=== PATIENT | female | born 1960 | race Caucasian/White ===

== ENCOUNTER 2016-07-31 21:46 | Observation (INO) ==
[2016-07-31] MEDS ORDERED: 0.9 % Sodium Chloride 1,000 ML IVC ONE (21:53)
[2016-07-31] MEDS ORDERED: Ammonia Inhalant AMPUL IH ONE (21:53)
[2016-07-31] MEDS ORDERED: Ammonia Inhalant AMPUL ONE (21:53)
--- NOTE | 2016-07-31 21:57 | Emergency Department Note ---
Disposition Clinical Impression: Drug overdose Disposition: Admitted As Inpatient Condition: Undetermined General Adult HPI - General Chief complaint: ED Overdose Stated complaint: OD/SI Time Seen by Provider: 07/31/16 21:49 - Related Data Home Medications Medication Instructions Recorded Confirmed Bupropion HCl [Wellbutrin Xl] 300 mg PO DAILY 12/05/14 12/05/14 Calcium Carbonate [Tums] 500 mg PO DAILY 12/05/14 12/05/14 Docusate [Colace] 100 mg PO DAILY 12/05/14 12/05/14 Estradiol [Estrace] 1 mg PO DAILY 12/05/14 12/05/14 Multivitamin [Flintstones] 1 each PO DAILY 12/05/14 12/05/14 Omeprazole [PriLOSEC] 40 mg PO DAILY 12/05/14 12/05/14 Venlafaxine [Effexor] 75 mg PO BID 12/05/14 12/05/14 traZODone [TraZODone] 100 mg PO HS 12/05/14 12/05/14 Previous Rx's Medication Instructions Recorded OxyCODONE/APAP 5/325 [Percocet 1 each PO Q6HR PRN #6 tablet 12/05/14 5/325] Azithromycin [Azithromycin 6-Tab 250 mg PO DAILY #6 tab 08/31/15 Pack] Ibuprofen [Motrin] 800 mg PO Q6-8H PRN #30 tablet 08/31/15 Lactobacillus Rhamnosus GG 1 each PO DAILY #7 capsule 08/31/15 [Culturelle] Lidocaine Viscous Oral Soln 10 ml PO Q3H PRN #200 ml 08/31/15 Meclizine [Antivert] 25 mg PO TID #30 tablet 02/13/16 Ondansetron [Zofran] 4 mg PO Q8HR #30 tablet 02/13/16 Allergies Allergy/AdvReac Type Severity Reaction Status Date / Time acetaminophen [From Tylenol] Allergy See Verified 12/05/14 12:18 Comments Penicillins Allergy See Verified 12/05/14 12:18 Comments Past Medical History - Past Medical History Medical history: Reports: no medical history Surgical history: Reports: hysterectomy, other Psychiatric history: Reports: anxiety, bipolar, depression, PTSD - Social History Smoking Status: Current every day smoker Smokeless Tobacco Status: No Alcohol use: Reports: none Drug use: Reports: marijuana Course Vital Signs Temperature 98.1 F 07/31/16 21:48 Pulse Rate 71 07/31/16 21:48 Respiratory Rate 14 07/31/16 21:48 Blood Pressure 146/90 07/31/16 21:48 O2 Sat by Pulse Oximetry 95 07/31/16 21:48 Temperature 97.7 F 08/01/16 02:17 Pulse Rate 75 08/01/16 05:00 Respiratory Rate 19 08/01/16 05:00 Blood Pressure 105/79 08/01/16 05:00 O2 Sat by Pulse Oximetry 99 08/01/16 05:00 Oxygen Delivery Oxygen Delivery Nasal Cannula Medical Decision Making - Lab Data Result diagrams: 07/31/16 22:39 07/31/16 22:39 Lab Results 07/31/16 07/31/16 07/31/16 Range/Units 22:34 22:37 22:39 WBC 11.8 H (4.3-11.1) K/mcL RBC 4.79 (3.82-4.97) M/mcL Hgb 14.3 (11.5-15.4) g/dL Hct 42.5 (35.3-44.9) % MCV 88.7 (83.0-100.0) fL MCH 29.9 (28.0-33.3) pg MCHC 33.6 (31.6-35.5) g/dL RDW 13.2 (11.5-14.5) % Plt Count 265 (140-400) K/mcL MPV 11.0 (9.4-12.4) fL Immature Gran % 0.3 (0-4) % Seg Neutrophils % 49.5 % Lymphocytes % 41.4 % Monocytes % 6.4 % Eosinophils % 1.9 % Basophils % 0.5 % Neutrophils # 5.9 (1.6-8.9) K/mcL Lymphocytes # 4.9 H (0.6-4.6) K/mcL Monocytes # 0.8 (0.0-1.3) K/mcL Eosinophils # 0.2 (0.0-0.6) K/mcL Basophils # 0.1 (0.0-0.2) K/mcL ABG pH (7.32-7.45) pH Units ABG pCO2 (35-45) mmHg ABG pO2 (85-104) mmHg ABG HCO3 (21-27) mEQ/L ABG Total CO2 (20-26) mEq/L ABG O2 Saturation (95-98) % ABG Base Excess (-2.0 to 3.0) mEq/L Liter Flow L/MIN Blood Gas Modality Inspired O2 % Sodium (136-145) mEq/L Potassium (3.5-4.5) mEq/L Chloride (98-109) mEq/L Carbon Dioxide (19-29) mEq/L BUN (7-20) mg/dL Creatinine (0.57-1.11) mg/dL Est GFR ( Amer) (> 60) Est GFR (Non-Af Amer) (> 60) BUN/Creatinine Ratio (6-26) Glucose (70-99) mg/dL Calculated Osmolality (280-300) Calcium (8.6-10.8) mg/dL Magnesium 1.9 (1.6-2.6) mg/dL Total Bilirubin (0.2-1.2) mg/dL Direct Bilirubin (0.0-0.5) mg/dL Indirect Bilirubin (0.0-1.2) mg/dL AST (5-34) Units/L ALT (0-55) Units/L Alkaline Phosphatase (38-126) Units/L Serum Total Protein (6.0-8.3) g/dL Albumin (3.5-5.0) g/dL Globulin (2.4-3.5) g/dL Albumin/Globulin Ratio (1.1-2.2) Urine Color Yellow (Yellow) Urine Clarity Cloudy A (Clear) Urine pH 6.0 (5.0-8.0) pH Units Ur Specific [place] 1.013 (1.010-1.025) Urine Protein Negative (Neg-Trace) mg/dL Urine Glucose (UA) Normal (Normal) mg/dL Urine Ketones Negative (Negative) mg/dL Urine Blood Negative (Negative) Urine Nitrite Positive A (Negative) Urine Bilirubin Negative (Negative) Urine Urobilinogen Normal (Normal) mg/dL Ur Leukocyte Esterase Trace H (Negative) Urine Microscopic RBC 0-3 (0-3) per hpf Urine Microscopic WBC 3-5 H (0-3) per hpf Ur Squamous Epith Cells Many H (None-Few) per lpf Urine Bacteria Many H (None-Few) per hpf Hyaline Casts None Seen (None-Few) per lpf Salicylates (15-30) mg/dL Urine Opiates Screen ([place]=340) ng/mL Acetaminophen (10-30) mcg/mL Ur Barbiturates Screen (Zoaukg=796) ng/mL Ur Phencyclidine Scrn (Cutoff=25) ng/mL Ur Amphetamines Screen (Ttleyj=8543) ng/mL U Benzodiazepines Scrn (Rrfhrj=410) ng/mL Urine Cocaine Screen (Cutoff= 300) ng/mL U Marijuana (THC) Screen (Cutoff = 50) ng/mL Ethyl Alcohol (0-10) mg/dL 07/31/16 07/31/16 07/31/16 Range/Units 22:39 22:48 23:25 WBC (4.3-11.1) K/mcL RBC (3.82-4.97) M/mcL Hgb (11.5-15.4) g/dL Hct (35.3-44.9) % MCV (83.0-100.0) fL MCH (28.0-33.3) pg MCHC (31.6-35.5) g/dL RDW (11.5-14.5) % Plt Count (140-400) K/mcL MPV (9.4-12.4) fL Immature Gran % (0-4) % Seg Neutrophils % % Lymphocytes % % Monocytes % % Eosinophils % % Basophils % % Neutrophils # (1.6-8.9) K/mcL Lymphocytes # (0.6-4.6) K/mcL Monocytes # (0.0-1.3) K/mcL Eosinophils # (0.0-0.6) K/mcL Basophils # (0.0-0.2) K/mcL ABG pH 7.37 (7.32-7.45) pH Units ABG pCO2 43 (35-45) mmHg ABG pO2 97 (85-104) mmHg ABG HCO3 24.9 (21-27) mEQ/L ABG Total CO2 26.2 H (20-26) mEq/L ABG O2 Saturation 97 (95-98) % ABG Base Excess -0.6 (-2.0 to 3.0) mEq/L Liter Flow 6 L/MIN Blood Gas Modality [place] Inspired O2 44 % Sodium 140 (136-145) mEq/L Potassium 3.7 (3.5-4.5) mEq/L Chloride 110 H (98-109) mEq/L Carbon Dioxide 20 (19-29) mEq/L BUN 15 (7-20) mg/dL Creatinine 1.21 H (0.57-1.11) mg/dL Est GFR ( Amer) 56 L (> 60) Est GFR (Non-Af Amer) 46 L (> 60) BUN/Creatinine Ratio 12 (6-26) Glucose 130 H (70-99) mg/dL Calculated Osmolality 293 (280-300) Calcium 8.9 (8.6-10.8) mg/dL Magnesium (1.6-2.6) mg/dL Total Bilirubin 0.4 (0.2-1.2) mg/dL Direct Bilirubin 0.2 (0.0-0.5) mg/dL Indirect Bilirubin 0.2 (0.0-1.2) mg/dL AST 16 (5-34) Units/L ALT 14 (0-55) Units/L Alkaline Phosphatase 98 (38-126) Units/L Serum Total Protein 7.0 (6.0-8.3) g/dL Albumin 3.7 (3.5-5.0) g/dL Globulin 3.3 (2.4-3.5) g/dL Albumin/Globulin Ratio 1.1 (1.1-2.2) Urine Color (Yellow) Urine Clarity (Clear) Urine pH (5.0-8.0) pH Units Ur Specific [place] (1.010-1.025) Urine Protein (Neg-Trace) mg/dL Urine Glucose (UA) (Normal) mg/dL Urine Ketones (Negative) mg/dL Urine Blood (Negative) Urine Nitrite (Negative) Urine Bilirubin (Negative) Urine Urobilinogen (Normal) mg/dL Ur Leukocyte Esterase (Negative) Urine Microscopic RBC (0-3) per hpf Urine Microscopic WBC (0-3) per hpf Ur Squamous Epith Cells (None-Few) per lpf Urine Bacteria (None-Few) per hpf Hyaline Casts (None-Few) per lpf Salicylates < 5.0 L (15-30) mg/dL Urine Opiates Screen Negative (Wszhwv=955) ng/mL Acetaminophen < 1.0 L (10-30) mcg/mL Ur Barbiturates Screen Negative (Klsrjr=197) ng/mL Ur Phencyclidine Scrn Negative (Cutoff=25) ng/mL Ur Amphetamines Screen Negative (Yehyjf=3186) ng/mL U Benzodiazepines Scrn Negative (Ckpzkn=679) ng/mL Urine Cocaine Screen Negative (Cutoff= 300) ng/mL U Marijuana (THC) Screen Positive H (Cutoff = 50) ng/mL Ethyl Alcohol < 10 (0-10) mg/dL Critical Care Time Critical Care Time: Yes Total Critical Care Time: 30 Attestation: Patient presented via EMS for overdose. I am unable to clear her medically for behavioral evaluation. She required consultation with the Poison Control Center and admission of IV sodium bicarbonate due to a widened QRS complex. Admitted Attestation Statement - Attestation Attestation: I examined this patient and my medical decision-making was reviewed with the THIRD COOK/PA/Advanced Practice Nurse/Resident Physician. I agree with the documented findings, disposition and treatment plan as described except to the extent set forth below. Face to face time provided Patient is reported to have overdosed on Klonopin and Lamictal. She is sleepy and nonverbal but protecting her airway. No indication for intubation at the time of her initial presentation.
--- NOTE | 2016-07-31 21:58 | Emergency Department Note ---
Overdose - [facility] Narrative Medical decision making narrative: Spoke with poison control with regard to the patient given the patient has a mildly widened QRS they recommended one amp of bicarbonate as well as magnesium. There was no improvement after EKG from 1 hour. The patient remained somnolent with a GCS of 11. She is still arousable to voice and painful stimuli. She continues to protect her airway. She has had no further vomiting. We will admit the patient to the intensive care unit. Accepted by the hospitalist, Dr. Barron. - Lab Data Lab results reviewed: Yes I reviewed the patient's lab results. Result diagrams: 07/31/16 22:39 07/31/16 22:39 Lab Results 07/31/16 07/31/16 07/31/16 Range/Units 22:34 22:37 22:39 WBC 11.8 H (4.3-11.1) K/mcL RBC 4.79 (3.82-4.97) M/mcL Hgb 14.3 (11.5-15.4) g/dL Hct 42.5 (35.3-44.9) % MCV 88.7 (83.0-100.0) fL MCH 29.9 (28.0-33.3) pg MCHC 33.6 (31.6-35.5) g/dL RDW 13.2 (11.5-14.5) % Plt Count 265 (140-400) K/mcL MPV 11.0 (9.4-12.4) fL Immature Gran % 0.3 (0-4) % Seg Neutrophils % 49.5 % Lymphocytes % 41.4 % Monocytes % 6.4 % Eosinophils % 1.9 % Basophils % 0.5 % Neutrophils # 5.9 (1.6-8.9) K/mcL Lymphocytes # 4.9 H (0.6-4.6) K/mcL Monocytes # 0.8 (0.0-1.3) K/mcL Eosinophils # 0.2 (0.0-0.6) K/mcL Basophils # 0.1 (0.0-0.2) K/mcL ABG pH (7.32-7.45) pH Units ABG pCO2 (35-45) mmHg ABG pO2 (85-104) mmHg ABG HCO3 (21-27) mEQ/L ABG Total CO2 (20-26) mEq/L ABG O2 Saturation (95-98) % ABG Base Excess (-2.0 to 3.0) mEq/L Liter Flow L/MIN Blood Gas Modality Inspired O2 % Sodium (136-145) mEq/L Potassium (3.5-4.5) mEq/L Chloride (98-109) mEq/L Carbon Dioxide (19-29) mEq/L BUN (7-20) mg/dL Creatinine (0.57-1.11) mg/dL Est GFR ( Amer) (> 60) Est GFR (Non-Af Amer) (> 60) BUN/Creatinine Ratio (6-26) Glucose (70-99) mg/dL Calculated Osmolality (280-300) Calcium (8.6-10.8) mg/dL Magnesium 1.9 (1.6-2.6) mg/dL Total Bilirubin (0.2-1.2) mg/dL Direct Bilirubin (0.0-0.5) mg/dL Indirect Bilirubin (0.0-1.2) mg/dL AST (5-34) Units/L ALT (0-55) Units/L Alkaline Phosphatase (38-126) Units/L Serum Total Protein (6.0-8.3) g/dL Albumin (3.5-5.0) g/dL Globulin (2.4-3.5) g/dL Albumin/Globulin Ratio (1.1-2.2) Urine Color Yellow (Yellow) Urine Clarity Cloudy A (Clear) Urine pH 6.0 (5.0-8.0) pH Units Ur Specific [place] 1.013 (1.010-1.025) Urine Protein Negative (Neg-Trace) mg/dL Urine Glucose (UA) Normal (Normal) mg/dL Urine Ketones Negative (Negative) mg/dL Urine Blood Negative (Negative) Urine Nitrite Positive A (Negative) Urine Bilirubin Negative (Negative) Urine Urobilinogen Normal (Normal) mg/dL Ur Leukocyte Esterase Trace H (Negative) Urine Microscopic RBC 0-3 (0-3) per hpf Urine Microscopic WBC 3-5 H (0-3) per hpf Ur Squamous Epith Cells Many H (None-Few) per lpf Urine Bacteria Many H (None-Few) per hpf Hyaline Casts None Seen (None-Few) per lpf Salicylates (15-30) mg/dL Urine Opiates Screen (Qtttpo=031) ng/mL Acetaminophen (10-30) mcg/mL Ur Barbiturates Screen (Wlbtis=760) ng/mL Ur Phencyclidine Scrn (Cutoff=25) ng/mL Ur Amphetamines Screen (Htpdie=2942) ng/mL U Benzodiazepines Scrn (Egcbpj=271) ng/mL Urine Cocaine Screen (Cutoff= 300) ng/mL U Marijuana (THC) Screen (Cutoff = 50) ng/mL Ethyl Alcohol (0-10) mg/dL 07/31/16 07/31/16 07/31/16 Range/Units 22:39 22:48 23:25 WBC (4.3-11.1) K/mcL RBC (3.82-4.97) M/mcL Hgb (11.5-15.4) g/dL Hct (35.3-44.9) % MCV (83.0-100.0) fL MCH (28.0-33.3) pg MCHC (31.6-35.5) g/dL RDW (11.5-14.5) % Plt Count (140-400) K/mcL MPV (9.4-12.4) fL Immature Gran % (0-4) % Seg Neutrophils % % Lymphocytes % % Monocytes % % Eosinophils % % Basophils % % Neutrophils # (1.6-8.9) K/mcL Lymphocytes # (0.6-4.6) K/mcL Monocytes # (0.0-1.3) K/mcL Eosinophils # (0.0-0.6) K/mcL Basophils # (0.0-0.2) K/mcL ABG pH 7.37 (7.32-7.45) pH Units ABG pCO2 43 (35-45) mmHg ABG pO2 97 (85-104) mmHg ABG HCO3 24.9 (21-27) mEQ/L ABG Total CO2 26.2 H (20-26) mEq/L ABG O2 Saturation 97 (95-98) % ABG Base Excess -0.6 (-2.0 to 3.0) mEq/L Liter Flow 6 L/MIN Blood Gas Modality [place] Inspired O2 44 % Sodium 140 (136-145) mEq/L Potassium 3.7 (3.5-4.5) mEq/L Chloride 110 H (98-109) mEq/L Carbon Dioxide 20 (19-29) mEq/L BUN 15 (7-20) mg/dL Creatinine 1.21 H (0.57-1.11) mg/dL Est GFR ( Amer) 56 L (> 60) Est GFR (Non-Af Amer) 46 L (> 60) BUN/Creatinine Ratio 12 (6-26) Glucose 130 H (70-99) mg/dL Calculated Osmolality 293 (280-300) Calcium 8.9 (8.6-10.8) mg/dL Magnesium (1.6-2.6) mg/dL Total Bilirubin 0.4 (0.2-1.2) mg/dL Direct Bilirubin 0.2 (0.0-0.5) mg/dL Indirect Bilirubin 0.2 (0.0-1.2) mg/dL AST 16 (5-34) Units/L ALT 14 (0-55) Units/L Alkaline Phosphatase 98 (38-126) Units/L Serum Total Protein 7.0 (6.0-8.3) g/dL Albumin 3.7 (3.5-5.0) g/dL Globulin 3.3 (2.4-3.5) g/dL Albumin/Globulin Ratio 1.1 (1.1-2.2) Urine Color (Yellow) Urine Clarity (Clear) Urine pH (5.0-8.0) pH Units Ur Specific [place] (1.010-1.025) Urine Protein (Neg-Trace) mg/dL Urine Glucose (UA) (Normal) mg/dL Urine Ketones (Negative) mg/dL Urine Blood (Negative) Urine Nitrite (Negative) Urine Bilirubin (Negative) Urine Urobilinogen (Normal) mg/dL Ur Leukocyte Esterase (Negative) Urine Microscopic RBC (0-3) per hpf Urine Microscopic WBC (0-3) per hpf Ur Squamous Epith Cells (None-Few) per lpf Urine Bacteria (None-Few) per hpf Hyaline Casts (None-Few) per lpf Salicylates < 5.0 L (15-30) mg/dL Urine Opiates Screen Negative (Nsdipt=088) ng/mL Acetaminophen < 1.0 L (10-30) mcg/mL Ur Barbiturates Screen Negative (Hwtxav=224) ng/mL Ur Phencyclidine Scrn Negative (Cutoff=25) ng/mL Ur Amphetamines Screen Negative (Mlfyjk=0030) ng/mL U Benzodiazepines Scrn Negative (Yblnci=550) ng/mL Urine Cocaine Screen Negative (Cutoff= 300) ng/mL U Marijuana (THC) Screen Positive H (Cutoff = 50) ng/mL Ethyl Alcohol < 10 (0-10) mg/dL - Radiology Data Radiology results reviewed: Yes I reviewed the patient's radiology results. - EKG Data EKG attestation: Yes I reviewed and interpreted this EKG. EKG results narrative: Heart rate 73 bpm. NH interval 146 ms. QTc 487 ms. Normal axis. Normal sinus rhythm. No ST elevation or ST depression noted. EKG identical to EKG from 02/13/2016. No acute changes noted. EKG #2. Heart rate 66 bpm. NH interval 191 ms. QTc 480 ms. Normal axis. Normal sinus rhythm. No ST elevation or ST depression noted. EKG identical to EKG performed at 2158 this evening. Overdose HPI - General Chief Complaint: ED Overdose Stated Complaint: OD/SI Time Seen by Provider: 07/31/16 21:49 Source: patient Mode of arrival: EMS Limitations: altered mental status Nursing Notes Reviewed: Yes Vital Signs Reviewed: Yes - History of Present Illness HPI Narrative: 56-year-old female with extensive history of suicidal attempt and ideation here today with potential overdose of 30 Clonopin and 30 Lamictal according to EMS. The patient is sleepy and somnolent but is arousable. She is protecting her airway at this time. No identifiable findings of head trauma. No other acute findings on physical exam. We will continue to monitor the patient on cardiac, pulse oximetry. Poison Control Center will be consulted. Pt Subjective Complaint: intentional overdose Intent: suicide attempt Treatments Prior to Arrival: none - Related Data Home Medications Medication Instructions Recorded Confirmed Bupropion HCl [Wellbutrin Xl] 300 mg PO DAILY 12/05/14 12/05/14 Calcium Carbonate [Tums] 500 mg PO DAILY 12/05/14 12/05/14 Docusate [Colace] 100 mg PO DAILY 12/05/14 12/05/14 Estradiol [Estrace] 1 mg PO DAILY 12/05/14 12/05/14 Multivitamin [Flintstones] 1 each PO DAILY 12/05/14 12/05/14 Omeprazole [PriLOSEC] 40 mg PO DAILY 12/05/14 12/05/14 Venlafaxine [Effexor] 75 mg PO BID 12/05/14 12/05/14 traZODone [TraZODone] 100 mg PO HS 12/05/14 12/05/14 Previous Rx's Medication Instructions Recorded OxyCODONE/APAP 5/325 [Percocet 1 each PO Q6HR PRN #6 tablet 12/05/14 5/325] Azithromycin [Azithromycin 6-Tab 250 mg PO DAILY #6 tab 08/31/15 Pack] Ibuprofen [Motrin] 800 mg PO Q6-8H PRN #30 tablet 08/31/15 Lactobacillus Rhamnosus GG 1 each PO DAILY #7 capsule 08/31/15 [Culturelle] Lidocaine Viscous Oral Soln 10 ml PO Q3H PRN #200 ml 08/31/15 Meclizine [Antivert] 25 mg PO TID #30 tablet 02/13/16 Ondansetron [Zofran] 4 mg PO Q8HR #30 tablet 02/13/16 Allergies Allergy/AdvReac Type Severity Reaction Status Date / Time acetaminophen [From Tylenol] Allergy See Verified 12/05/14 12:18 Comments Penicillins Allergy See Verified 12/05/14 12:18 Comments Limitations: ROS unobtainable due to patients medical condition Past Medical History - Past Medical History Attestation: Yes The following information was validated with the patient. Source: patient Medical history: Reports: no medical history Surgical history: Reports: hysterectomy, other Psychiatric history: Reports: anxiety, bipolar, depression, PTSD, prior suicide attempt - Social History Smoking Status: Current every day smoker Smokeless Tobacco Status: No Alcohol use: Reports: none Drug use: Reports: marijuana Physical Exam - General Limitations: altered mental status General appearance: appears intoxicated - Head Head exam: atraumatic, normocephalic, normal inspection - Eye Eye exam: Present: normal appearance, PERRL, EOMI - ENT ENT exam: normal exam, normal oropharynx, mucous membranes moist - Chest Chest inspection: Present: normal inspection, symmetric chest wall rise - Respiratory Respiratory exam: Present: normal lung sounds bilaterally - Cardiovascular Cardiovascular exam: Present: regular rate, normal rhythm, normal heart sounds - Abdominal Exam Abdominal exam: Present: soft, Non-Tender. Absent: tenderness, distention, guarding, rebound, rigidity - Extremities Exam Extremities exam: Present: normal inspection, full ROM. Absent: tenderness, pedal edema - Expanded Neurological Exam Patient oriented to: Present: person Coma Scale Eye Opening: To Voice Coma Scale Motor Response: Obeys Commands Coma Scale Verbal Response: Incomprehensible Coma Scale Total: 11 - Skin Skin exam: Present: warm, dry, intact, normal color Course - Reevaluation(s) Reevaluation #1: Spoke with poison control who recommended a history of one amp of bicarbonate as well as magnesium for QRS prolongation. We will perform this. He also requested a repeat EKG 1 hour. Time: 22:48 Vital Signs Temperature 98.1 F 07/31/16 21:48 Pulse Rate 71 07/31/16 21:48 Respiratory Rate 14 07/31/16 21:48 Blood Pressure 146/90 07/31/16 21:48 O2 Sat by Pulse Oximetry 95 07/31/16 21:48 Temperature 98.1 F 07/31/16 21:48 Pulse Rate 65 08/01/16 00:14 Respiratory Rate 14 08/01/16 00:14 Blood Pressure 131/90 08/01/16 00:14 O2 Sat by Pulse Oximetry 94 08/01/16 00:14 Oxygen Delivery Oxygen Delivery Nasal Cannula Disposition Clinical Impression: Drug overdose Qualifiers: Encounter type: initial encounter Injury intent: undetermined intent Qualified Code(s): T50.904A - Poisoning by unspecified drugs, medicaments and biological substances, undetermined, initial encounter Disposition: Admitted As Inpatient Condition: Undetermined Referrals: NO,PCP [Primary Care Provider] - Forms: ED Satisfaction Letter Time of Disposition: 00:44
[2016-07-31] MEDS ORDERED: Ondansetron 4 MG/2 ML VIAL IVP ONE ×2 (22:16→23:30)
[2016-07-31 23:03] LABS: Basophils # 0.1 K/mcL (0.0-0.2); Basophils % 0.5 %; Eosinophils # 0.2 K/mcL (0.0-0.6); Eosinophils % 1.9 %; Hematocrit 42.5 % (35.3-44.9); Hemoglobin 14.3 g/dL (11.5-15.4); Immature Granulocytes % 0.3 % (0-4); Lymphocytes # 4.9 K/mcL (0.6-4.6); Lymphocytes % 41.4 %; Mean Corpuscular HGB Conc 33.6 g/dL (31.6-35.5); Mean Corpuscular Hemoglobin 29.9 pg (28.0-33.3); Mean Corpuscular Volume 88.7 fL (83.0-100.0); Monocytes # 0.8 K/mcL (0.0-1.3); Monocytes % 6.4 %; Neutrophils # 5.9 K/mcL (1.6-8.9); Platelet Count 265 K/mcL (140-400); Red Blood Count 4.79 M/mcL (3.82-4.97); Red Cell Distribution Width 13.2 % (11.5-14.5); Segmented Neutrophils % 49.5 %
[2016-07-31 23:05] LABS: Bilirubin,Urine Negative (Negative); Blood,Urine Negative (Negative); Clarity,Urine Cloudy (Clear); Color,Urine Yellow (Yellow); Glucose,Urine (UA) Normal (Normal); Ketones,Urine Negative (Negative); Leukocyte Esterase,Urine Trace (Negative); Nitrite,Urine Positive (Negative); Protein,Urine Negative (Neg-Trace); Specific Gravity,Urine 1.013 (1.010-1.025); Urobilinogen,Urine Normal (Normal)
[2016-07-31 23:07] LABS: Bacteria,Urine Many per hpf (None-Few); Hyaline Casts,Urine None Seen per lpf (None-Few); RBC,Urine 0-3 per hpf (0-3); Squamous Epithelial Cell,Urine Many per lpf (None-Few)
[2016-07-31 23:10] LABS: Amphetamine Screen,Urine Negative ng/mL (Cutoff=1000); Barbiturate Screen,Urine Negative ng/mL (Cutoff=200); Benzodiazepines Screen,Urine Negative ng/mL (Cutoff=200); Cannabinoid Screen,Urine Positive ng/mL (Cutoff = 50); Cocaine Screen,Urine Negative ng/mL (Cutoff= 300); Opiate Screen,Urine Negative ng/mL (Cutoff=300); Phencyclidine Screen,Urine Negative ng/mL (Cutoff=25)
[2016-07-31 23:16] LABS: Alanine Aminotransferase 14 Units/L (0-55); Albumin 3.7 g/dL (3.5-5.0); Albumin/Globulin Ratio 1.1 (1.1-2.2); Alkaline Phosphatase 98 Units/L (38-126); Aspartate Amino Transferase 16 Units/L (5-34); BUN/Creatinine Ratio 12 (6-26); Bilirubin,Direct 0.2 mg/dL (0.0-0.5); Bilirubin,Indirect 0.2 mg/dL (0.0-1.2); Bilirubin,Total 0.4 mg/dL (0.2-1.2); Blood Urea Nitrogen 15 mg/dL (7-20); Calcium 8.9 mg/dL (8.6-10.8); Carbon Dioxide 20 mEq/L (19-29); Chloride 110 mEq/L (98-109); Globulin 3.3 g/dL (2.4-3.5); Glucose 130 mg/dL (70-99); Osmolality,Calculated 293 (280-300); Potassium 3.7 mEq/L (3.5-4.5); Sodium 140 mEq/L (136-145); eGFR For African Americans 56 (> 60); eGFR For Non-African Americans 46 (> 60)
[2016-07-31 23:17] LABS: Acetaminophen < 1.0 mcg/mL (10-30); Ethanol < 10 mg/dL (0-10); Salicylate < 5.0 mg/dL (15-30)
[2016-07-31 23:45] LABS: ABG Base Excess -0.6 mEq/L (-2.0 to 3.0); ABG HCO3 24.9 mEQ/L (21-27); ABG Oxygen Saturation 97 % (95-98); ABG PCO2 43 mmHg (35-45); ABG PH 7.37 pH Units (7.32-7.45); ABG PO2 97 mmHg (85-104); ABG TCO2 26.2 mEq/L (20-26)
[2016-07-31 23:46] LABS: Blood Gas FiO2 44 %; Blood Gas Liter Flow 6 L/MIN
--- NOTE | 2016-08-01 04:52 | Internal Med History&Physical ---
Date of Encounter: 08/01/16 Time of Encounter: 04:52 Assessment and Plan (1) Drug overdose Current visit: Yes Status: Acute Overdose from lamotrigine and Klonopin, with suicidal intent. Had a prolonged QTC and the QRS on the initial EKGs. ER physician discussed with poison control and recommended intravenous bicarbonate infusion. QRS interval and QTc interval are improving. Continue to monitor. Suicide precautions and sitter at bedside. Psychiatric consultation Qualifiers: Encounter type: initial encounter Injury intent: intentional self-harm Qualified Code(s): T50.902A - Poisoning by unspecified drugs, medicaments and biological substances, intentional self-harm, initial encounter (2) Depression with suicidal ideation Current visit: Yes Status: Acute Psychiatry consult (3) UTI (urinary tract infection) Current visit: Yes Status: Acute Patient apparently had severe allergies to penicillin. Hence will avoid the cephalosporins as well. Patient has prolonged QTC and hence avoid ciprofloxacin and levofloxacin. Will start nitrofurantoin. Urine cultures pending. Qualifiers: Urinary tract infection type: site unspecified Hematuria presence: without hematuria Qualified Code(s): N39.0 - Urinary tract infection, site not specified (4) Prolonged Q-T interval on ECG Current visit: Yes Status: Acute Likely secondary to overdose. Avoid QT prolonging medications. Monitor (5) Chronic back pain Current visit: Yes Status: Acute Continue home meds Qualifiers: Back pain location: low back pain Back pain laterality: unspecified Sciatica presence: unspecified whether sciatica present Qualified Code(s): M54.5 - Low back pain; G89.29 - Other chronic pain (6) CKD (chronic kidney disease) stage 3, GFR 30-59 ml/min Current visit: Yes Status: Chronic Mode renal function. Avoid nephrotoxics (7) Abnormal CXR Current visit: Yes Status: Acute Radiologist reported abnormal CXR with left pleural effusion and LLL opacity. On my personal review, there is no evidence of pneumonia. I have requested for 2 view CXR to evaluate this further. Internal Medicine - H&P: HPI Chief complaint: Overdose of medications Admitted From: Emergency Dept Plans for Post Hospital Care: Transfer Psych Facility History of present illness: Ms. Garcia is a 56 year old female with past h/o chronic back pain, depression, prior suicidal attempts - was brought to the ER by the EMS with h/o overdose of medications - Pt reports taking lamotrigene 200 mg x 30 tablets (per the ER note : pt took 30 tablets of lamotrigene and 30 tabs of clonopine). Denies alcohol use. No vomiting after the OD. She reports that she was fed up and wanted to end her life. She reports that she had to go to the doctors several times, due to her back problems and mental health problems and she feels fed up. She denies prior planning. She denies headache, chest pain, shortness of breath, palpitations, nausea, vomiting, abdominal pain, urinary or bowel problems at this time. She was evaluated in the ER - was noted to have mildly widened QRS duration - was given sodium bicarbonate. She is admitted to the hospitalist service for further management. Past Med Surg Social Fam HX - Past Medical History Medical history: no medical history Psychiatric history: anxiety, bipolar, depression, PTSD, prior suicide attempt - Past Surgical History Surgical History: hysterectomy, other - Social History Smoking Status: Current every day smoker Packs per day: 0.25 Smokeless Tobacco Status: No Alcohol use: none Drug use: marijuana - Additional Family History Additional family history: Family hx reviewed and is non-contributory to current admission Internal Medicine - H&P: Meds Bupropion HCl [Wellbutrin Xl] 300 mg PO DAILY 12/05/14 [History] Calcium Carbonate [Tums] 500 mg PO DAILY 12/05/14 [History] Docusate [Colace] 100 mg PO DAILY 12/05/14 [History] Estradiol [Estrace] 1 mg PO DAILY 12/05/14 [History] Multivitamin [Flintstones] 1 each PO DAILY 12/05/14 [History] Omeprazole [PriLOSEC] 40 mg PO DAILY 12/05/14 [History] OxyCODONE/APAP 5/325 [Percocet 5/325] 1 each PO Q6HR PRN #6 tablet 12/05/14 [Rx] Venlafaxine [Effexor] 75 mg PO BID 12/05/14 [History] traZODone [TraZODone] 100 mg PO HS 12/05/14 [History] Azithromycin [Azithromycin 6-Tab Pack] 250 mg PO DAILY #6 tab 08/31/15 [Rx] Ibuprofen [Motrin] 800 mg PO Q6-8H PRN #30 tablet 08/31/15 [Rx] Lactobacillus Rhamnosus GG [Culturelle] 1 each PO DAILY #7 capsule 08/31/15 [Rx] Lidocaine Viscous Oral Soln 10 ml PO Q3H PRN #200 ml 08/31/15 [Rx] Meclizine [Antivert] 25 mg PO TID #30 tablet 02/13/16 [Rx] Ondansetron [Zofran] 4 mg PO Q8HR #30 tablet 02/13/16 [Rx] Allergies acetaminophen [From Tylenol] Allergy (Verified 12/05/14 12:18) See Comments Penicillins Allergy (Verified 12/05/14 12:18) See Comments All Systems PM: A 10-system review of systems was performed and is negative for pertinent findings except as documented above in the HPI. - Constitutional Vitals: Temp Pulse Resp BP Pulse Ox 97.7 F 78 17 106/71 97 08/01/16 02:17 08/01/16 04:00 08/01/16 04:00 08/01/16 04:00 08/01/16 04:00 Exam: General: Not in acute distress at the time of my evaluation HEENT: Oral mucosa is moist. No conjunctival palor or scleral icterus Neck: No obvious neck swellings Lungs: Clear to auscultation Cardiac: Regular rate and rhythm. No significant murmurs Abdomen: Soft, non tender. Bowel sounds present Genitourinary: No baird catheter Neurological: Alert and oriented. No gross localizing deficits Psych: Pt reports feeling fed up; suicidal ideation present. No delusions or hallucinations at the time of my evaluation Extremities: no significant leg edema Skin: No generalized rash Internal Med - H&P Results - Labs CBC & Chem 7: 07/31/16 22:39 07/31/16 22:39 - EKG Data -: EKG Interpreted by Myself EKG shows normal: sinus rhythm - EKG Data Prior EKG available for review: yes When compared to previous EKG: there are significant changes EKG comments: IVCD. QRS duration: 108 ms; QTc: 449 ms. Reviewed the EKG from the ER - QRS duration and QTc are improved compared to the earlier EKGs 08/01/16 05:06 08/01/16 06:47 - Impressions ITS Impressions Chest X-Ray 08/01/16 00:42 IMPRESSION: 1. Findings are suggestive of small left pleural effusion with possible left lower lobe opacity which could reflect underlying pneumonia or partial atelectasis D/ / Parveen Snider MD / Parveen Snider MD Interpreting Provider: Parveen Snider MD
[2016-08-01] MEDS ORDERED: Naloxone 0.4 MG/ML INJ IVP PRN ×2 (05:13→19:07)
[2016-08-01] MEDS ORDERED: Ipratropium/Albuterol Neb 3 ML IH PRN ×2 (06:06→19:07)
[2016-08-01] MEDS ORDERED: Nitrofurantoin (BID) 100 MG CAPSULE PO SCH (08:00)
[2016-08-01] MEDS ORDERED: Nicotine 7 MG PATCH.TD24 TD SCH (09:00)
--- NOTE | 2016-08-01 10:36 | Internal Med Progress Note ---
<Shon Farah - Last Filed: 08/01/16 10:33> Date of Encounter: 08/01/16 Time of Encounter: 09:10 - Assessment and plan (1) Drug overdose Current Visit: Yes Status: Acute Assessment and plan: Overdose from lamotrigine and Klonopin, with suicidal intent. Had a prolonged QTC and the QRS on the initial EKGs. Patient received intravenous bicarbonate per the recommendation of poison control. QRS interval and QTc interval are improving. Continue to monitor via cardiac telemetry Suicide precautions and sitter at bedside Psychiatric consultation Half-life of lamotrigine is 25 hours, will likely need to observe patient for extended period time Qualifiers: Encounter type: initial encounter Injury intent: intentional self-harm Qualified Code(s): T50.902A - Poisoning by unspecified drugs, medicaments and biological substances, intentional self-harm, initial encounter (2) Depression with suicidal ideation Current Visit: Yes Status: Acute Assessment and plan: Patient has history of depression with prior suicide attempts. She is currently on several medications for treatment of her psychiatric concerns, including venlafaxine and Wellbutrin. Patient reportedly overdosed on lamotrigine, but at the moment there appears to be no lamotrigine her home medication list. We will consult psychiatry for assistance with patient suicidal ideation and help with med management going forward Continue one-to-one sitter and suicide precautions (3) UTI (urinary tract infection) Current Visit: Yes Status: Acute Assessment and plan: UA grossly contaminated. Patient had no previous complaints of dysuria, hematuria, pyuria. Unlikely UTI at present time. Will remove patient Robertson Stop Macrobid We will repeat UA if continued suspicion of UTI Qualifiers: Urinary tract infection type: site unspecified Hematuria presence: without hematuria Qualified Code(s): N39.0 - Urinary tract infection, site not specified (4) Prolonged Q-T interval on ECG Current Visit: Yes Status: Acute Assessment and plan: Patient presented with slightly elongated QT interval at admission following an intentional overdose of lamotrigine and Klonopin. Patient received sodium bicarbonate prior for cardiac protection. Since presentation repeat EKG performed this morning shows improvement in patient QTc elongation, but still slightly long. Half-life of lamotrigine is 25 hours We will continue to monitor patient on cardiac telemetry We will order additional magnesium Repeat EKG in the a.m. (5) CKD (chronic kidney disease) stage 3, GFR 30-59 ml/min Current Visit: Yes Status: Chronic Assessment and plan: Patient chronic kidney disease stable We will monitor with daily chemistry Avoid potentially nephrotoxic agents (6) DVT prophylaxis Current Visit: Yes Status: Acute Assessment and plan: 5000 units heparin subcutaneous twice a day - Subjective Interval history: Patient reports that last night she was feeling overwhelmed, stating that she has had lots of doctors appointments, feelings of loss about her parents, guilt , and self-loathing. She states that these feelings overwhelmed her and cause her to become angry, manifesting initially as her punching grande but after that in a suicide attempt in which she took a bottle of lamotrigine pills and a bottle of Klonopin. She states that she did not get a chance to take the second bottle of lamotrigine because the police had arrived. He states she was wanting to call the police due in part to her emotional support and will becoming upset. She reports that she has significant guilt regarding lost her mother 1 decade ago due to not being there prior to her mom passing, despite her mother asking. At that time she was suffering from addiction problems and desired to go home associated with her mom. She reports having continued, significant guilt regarding this event. She does report having occasional hallucinations focusing around her father, who past 33 years ago. She reports having one counselor and one psychiatrist currently working with her to assist with depression. - Constitutional Vitals: Temp Pulse Resp BP Pulse Ox 97.9 F 80 20 111/71 97 08/01/16 08:03 08/01/16 08:03 08/01/16 08:03 08/01/16 08:03 08/01/16 08:03 General appearance: Present: cooperative, disheveled, A&O X 3, answers questions appropriately Exam: General: Cooperative, pleasant, no acute distress, alert and oriented 3, answers questions appropriately HEENT: Normocephalic, atraumatic, neck supple, trachea midline, Conjunctiva pink , sclera anicteric Respiratory: No accessory muscle usage, clear to auscultation bilaterally, no wheezes/rhonchi/rales appreciated Cardiovascular: Regular rate and rhythm, S1 and S2 present, no murmurs/rubs/ gallops/clicks appreciated GI/abdominal: Nondistended, nontender, soft, normal bowel sounds, no peritoneal signs Extremities: No calf tenderness, noncyanotic, no pedal edema appreciated, warm, lower extremity pulses palpable and symmetrical Neurological: Alert and oriented 3, no facial droop, no focal deficits Psychiatric: Mood somewhat labile, tearful, reports depression, reports feeling overwhelmed, reports several suicide attempt before, reports having had a brief amount of preplanning before, reports hallucinations Skin: Dry, intact, normal color Internal Medicine: Result - Labs CBC & Chem 7: 07/31/16 22:39 07/31/16 22:39 - ABG Interpretation ABG results: ABG ABG pH 7.37 pH Units (7.32-7.45) 07/31/16 23:25 ABG pCO2 43 mmHg (35-45) 07/31/16 23:25 ABG pO2 97 mmHg (85-104) 07/31/16 23:25 ABG O2 Saturation 97 % (95-98) 07/31/16 23:25 - Impressions Impressions Chest X-Ray 08/01/16 06:44 IMPRESSION: 1. No active pulmonary disease. The abnormality noted on the prior chest x-ray likely was due to overlapping soft tissue. D/ / Lester Souza MD / Lester Souza MD Interpreting Provider: Lester Souza MD Consult Discharge Plan - Plan Referrals: NO,PCP [Primary Care Provider] - <Lelo Singleton E - Last Filed: 08/01/16 15:45> Date of Encounter: 08/01/16 - Constitutional Vitals: Temp Pulse Resp BP Pulse Ox 97.8 F 72 25 114/74 99 08/01/16 11:46 08/01/16 11:46 08/01/16 11:46 08/01/16 11:46 08/01/16 11:46 Internal Medicine: Result - Labs CBC & Chem 7: 07/31/16 22:39 07/31/16 22:39 - ABG Interpretation ABG results: ABG ABG pH 7.37 pH Units (7.32-7.45) 07/31/16 23:25 ABG pCO2 43 mmHg (35-45) 07/31/16 23:25 ABG pO2 97 mmHg (85-104) 07/31/16 23:25 ABG O2 Saturation 97 % (95-98) 07/31/16 23:25 - Impressions Impressions Chest X-Ray 08/01/16 06:44 IMPRESSION: 1. No active pulmonary disease. The abnormality noted on the prior chest x-ray likely was due to overlapping soft tissue. D/ / Lester Souza MD / Lester Souza MD Interpreting Provider: Lester Souza MD - Attending Attestation I examined this patient and reviewed laboratory, imaging and all diagnostic data. My medical decision-making was reviewed with Dr Shon Farah - Resident Physician. I agree with the documented findings, disposition and treatment plan as described above.
[2016-08-01] MEDS ORDERED: Magnesium Sulfate 1 GM in D5% in Water 100 ML IVPB ONE (11:10)
--- NOTE | 2016-08-01 14:53 | Electrocardiograph Report ---
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
--- NOTE | 2016-08-01 14:55 | Electrocardiograph Report ---
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
--- NOTE | 2016-08-01 15:04 | Consult Note ---
Date of Encounter: 08/01/16 Time of Encounter: 14:00 Assessment & Recommendation (1) Recurrent major depression-severe Current visit: Yes Status: Acute Assessment & Recommendation: After medical stabilization, patient can be transferred to psychiatric unit for further treatment. Thank you for consultation Qualifiers: Qualified Code(s): F33.2 - Major depressive disorder, recurrent severe without psychotic features History of Present Illness Patient: new to practice Requesting Physician: Lelo Singleton Reason for consult: Suicide attempt by overdose History of present illness: Ms. Garcia is a 56 year old female admitted to the hospital for treatment off overdose on Klonopin and Lamictal in a suicide attempt. Psychiatry was consulted to evaluate its suicidality. No psychiatric records were available to review, history information was taken from the patient and records. Patient states she has a history of depression and anxiety since young age and she was treated with medication and therapy and currently under the care of a psychiatrist and a counselor. She reported feeling overwhelmed by chronic back pain and multiple doctors visits and felt frustrated and decided to overdose to kill herself. Interestingly she was seen by her therapist the day before admission. CC: Lelo Singleton Past Med Surg Social Fam HX - Past Medical History Medical history: no medical history - Past Surgical History Surgical History: hysterectomy, other - Social History Smoking Status: Current every day smoker Smokeless Tobacco Status: No Alcohol use: none Drug use: marijuana Medications & Allergies Bupropion HCl [Wellbutrin Xl] 300 mg PO DAILY 12/05/14 [History] Docusate [Colace] 100 mg PO DAILY 12/05/14 [History] Estradiol [Estrace] 1 mg PO DAILY 12/05/14 [History] Multivitamin [Flintstones] 1 tab PO DAILY 12/05/14 [History] Omeprazole [PriLOSEC] 40 mg PO DAILY 12/05/14 [History] Ibuprofen [Motrin] 800 mg PO Q6-8H PRN #30 tablet 08/31/15 [Rx] Calcium Carbonate [Calcium] 500 mg PO DAILY 08/01/16 [History] Cyclobenzaprine [Flexeril] 10 mg PO TID PRN 08/01/16 [History] Doxepin [Sinequan] 25 mg PO HS 08/01/16 [History] Gabapentin [Neurontin] 100 mg PO TID 08/01/16 [History] Propranolol [Inderal] 10 mg PO TID 08/01/16 [History] Venlafaxine [Effexor] 37.5 mg PO BID 08/01/16 [History] clonazePAM [Klonopin] 1 mg PO TID PRN 08/01/16 [History] lamoTRIgine [Lamotrigine] 200 mg PO BID 08/01/16 [History] Allergies acetaminophen [From Tylenol] Allergy (Verified 12/05/14 12:18) See Comments Penicillins Allergy (Verified 12/05/14 12:18) See Comments Mental Status Exam Patient orientation: Yes Person, Yes Time, Yes Place Level of alertness: Alert, Sedated Patient appearance: Appropriate, Well Groomed Behavior: calm, cooperative Psychomotor activity: Slowed Eye contact: Maintains Eye Contact Mood description: Depressed Affect description: congruent with mood, constricted Speech pattern: Normal rate, Normal rhythm, Normal tone Speech volume: Normal Thought process: Linear, Goal Oriented Thought content: Yes Suicidal ideation, No Homicidal ideation, No Overt delusions Perceptual disturbances: No Auditory hallucinations, No Visual hallucinations Attention span: Capable of Focused Attention Memory description: Grossly Intact Patient reliability: Reliable Historian Intelligence estimate: Average Judgment: Limited Insight: Partial Results - Vital Signs Vital signs: Temp Pulse Resp BP Pulse Ox 97.8 F 72 25 114/74 99 08/01/16 11:46 08/01/16 11:46 08/01/16 11:46 08/01/16 11:46 08/01/16 11:46 - Labs Labs: Laboratory Last Values WBC 11.8 K/mcL (4.3-11.1) H 07/31/16 22:39 RBC 4.79 M/mcL (3.82-4.97) 07/31/16 22:39 Hgb 14.3 g/dL (11.5-15.4) 07/31/16 22:39 Hct 42.5 % (35.3-44.9) 07/31/16 22:39 MCV 88.7 fL (83.0-100.0) 07/31/16 22:39 MCH 29.9 pg (28.0-33.3) 07/31/16 22:39 MCHC 33.6 g/dL (31.6-35.5) 07/31/16 22:39 RDW 13.2 % (11.5-14.5) 07/31/16 22:39 Plt Count 265 K/mcL (140-400) 07/31/16 22:39 MPV 11.0 fL (9.4-12.4) 07/31/16 22:39 Immature Gran % 0.3 % (0-4) 07/31/16 22:39 Seg Neutrophils % 49.5 % 07/31/16 22:39 Lymphocytes % 41.4 % 07/31/16 22:39 Monocytes % 6.4 % 07/31/16 22:39 Eosinophils % 1.9 % 07/31/16 22:39 Basophils % 0.5 % 07/31/16 22:39 Neutrophils # 5.9 K/mcL (1.6-8.9) 07/31/16 22:39 Lymphocytes # 4.9 K/mcL (0.6-4.6) H 07/31/16 22:39 Monocytes # 0.8 K/mcL (0.0-1.3) 07/31/16 22:39 Eosinophils # 0.2 K/mcL (0.0-0.6) 07/31/16 22:39 Basophils # 0.1 K/mcL (0.0-0.2) 07/31/16 22:39 ABG pH 7.37 pH Units (7.32-7.45) 07/31/16 23:25 ABG pCO2 43 mmHg (35-45) 07/31/16 23:25 ABG pO2 97 mmHg (85-104) 07/31/16 23:25 ABG HCO3 24.9 mEQ/L (21-27) 07/31/16 23:25 ABG Total CO2 26.2 mEq/L (20-26) H 07/31/16 23:25 ABG O2 Saturation 97 % (95-98) 07/31/16 23:25 ABG Base Excess -0.6 mEq/L (-2.0 to 3.0) 07/31/16 23:25 Liter Flow 6 L/MIN 07/31/16 23:25 Blood Gas Modality MT 07/31/16 23:25 Inspired O2 44 % 07/31/16 23:25 Sodium 140 mEq/L (136-145) 07/31/16 22:39 Potassium 3.7 mEq/L (3.5-4.5) 07/31/16 22:39 Chloride 110 mEq/L (98-109) H 07/31/16 22:39 Carbon Dioxide 20 mEq/L (19-29) 07/31/16 22:39 BUN 15 mg/dL (7-20) 07/31/16 22:39 Creatinine 1.21 mg/dL (0.57-1.11) H 07/31/16 22:39 Est GFR ( Amer) 56 (> 60) L 07/31/16 22:39 Est GFR (Non-Af Amer) 46 (> 60) L 07/31/16 22:39 BUN/Creatinine Ratio 12 (6-26) 07/31/16 22:39 Glucose 130 mg/dL (70-99) H 07/31/16 22:39 Calculated Osmolality 293 (280-300) 07/31/16 22:39 Calcium 8.9 mg/dL (8.6-10.8) 07/31/16 22:39 Magnesium 1.9 mg/dL (1.6-2.6) 07/31/16 22:34 Total Bilirubin 0.4 mg/dL (0.2-1.2) 07/31/16 22:39 Direct Bilirubin 0.2 mg/dL (0.0-0.5) 07/31/16 22:39 Indirect Bilirubin 0.2 mg/dL (0.0-1.2) 07/31/16 22:39 AST 16 Units/L (5-34) 07/31/16 22:39 ALT 14 Units/L (0-55) 07/31/16 22:39 Alkaline Phosphatase 98 Units/L (38-126) 07/31/16 22:39 Serum Total Protein 7.0 g/dL (6.0-8.3) 07/31/16 22:39 Albumin 3.7 g/dL (3.5-5.0) 07/31/16 22:39 Globulin 3.3 g/dL (2.4-3.5) 07/31/16 22:39 Albumin/Globulin Ratio 1.1 (1.1-2.2) 07/31/16 22:39 Urine Color Yellow (Yellow) 07/31/16 22:37 Urine Clarity Cloudy (Clear) A 07/31/16 22:37 Urine pH 6.0 pH Units (5.0-8.0) 07/31/16 22:37 Ur Specific [place] 1.013 (1.010-1.025) 07/31/16 22:37 Urine Protein Negative mg/dL (Neg-Trace) 07/31/16 22:37 Urine Glucose (UA) Normal mg/dL (Normal) 07/31/16 22:37 Urine Ketones Negative mg/dL (Negative) 07/31/16 22:37 Urine Blood Negative (Negative) 07/31/16 22:37 Urine Nitrite Positive (Negative) A 07/31/16 22:37 Urine Bilirubin Negative (Negative) 07/31/16 22:37 Urine Urobilinogen Normal mg/dL (Normal) 07/31/16 22:37 Ur Leukocyte Esterase Trace (Negative) H 07/31/16 22:37 Urine Microscopic RBC 0-3 per hpf (0-3) 07/31/16 22:37 Urine Microscopic WBC 3-5 per hpf (0-3) H 07/31/16 22:37 Ur Squamous Epith Cells Many per lpf (None-Few) H 07/31/16 22:37 Urine Bacteria Many per hpf (None-Few) H 07/31/16 22:37 Hyaline Casts None Seen per lpf (None-Few) 07/31/16 22:37 Salicylates < 5.0 mg/dL (15-30) L 07/31/16 22:39 Urine Opiates Screen Negative ng/mL (Jjxcoj=568) 07/31/16 22:48 Acetaminophen < 1.0 mcg/mL (10-30) L 07/31/16 22:39 Ur Barbiturates Screen Negative ng/mL (Tlmlzw=545) 07/31/16 22:48 Ur Phencyclidine Scrn Negative ng/mL (Cutoff=25) 07/31/16 22:48 Ur Amphetamines Screen Negative ng/mL (Ojqsvk=8085) 07/31/16 22:48 U Benzodiazepines Scrn Negative ng/mL (Ulitqk=595) 07/31/16 22:48 Urine Cocaine Screen Negative ng/mL (Cutoff= 300) 07/31/16 22:48 U Marijuana (THC) Screen Positive ng/mL (Cutoff = 50) H 07/31/16 22:48 Ethyl Alcohol < 10 mg/dL (0-10) 07/31/16 22:39 - Impressions Impressions Chest X-Ray 08/01/16 06:44 IMPRESSION: 1. No active pulmonary disease. The abnormality noted on the prior chest x-ray likely was due to overlapping soft tissue. D/ / Lester Souza MD / Lester Souza MD Interpreting Provider: Lester Souza MD Consult Discharge Plan - Plan Referrals: NO,PCP [Primary Care Provider] -
--- NOTE | 2016-08-01 15:07 | Electrocardiograph Report ---
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
[2016-08-01] MEDS ORDERED: *HR* Heparin 5,000 UNIT/ML VIAL SQ SCH (18:00)
[2016-08-01] MEDS ORDERED: clonazePAM 0.5 MG TABLET PO PRN ×2 (18:21→19:07)
[2016-08-01] MEDS ORDERED: Mag Hydrox/Al Hydrox/Simeth 30 ML UDC PO PRN (21:16)
[2016-08-02 00:27] VITALS: BP 110/71
[2016-08-02] MEDS ORDERED: *HR* Heparin 5,000 UNIT/ML VIAL SQ SCH (06:00)
[2016-08-02 06:28] LABS: Basophils % 0.3 %; Eosinophils # 0.2 K/mcL (0.0-0.6); Eosinophils % 1.9 %; Hematocrit 42.5 % (35.3-44.9); Hemoglobin 13.9 g/dL (11.5-15.4); Immature Granulocytes % 0.2 % (0-4); Lymphocytes % 35.1 %; Mean Corpuscular HGB Conc 32.7 g/dL (31.6-35.5); Mean Corpuscular Hemoglobin 29.3 pg (28.0-33.3); Mean Corpuscular Volume 89.5 fL (83.0-100.0); Mean Platelet Volume 10.7 fL (9.4-12.4); Monocytes # 0.4 K/mcL (0.0-1.3); Monocytes % 4.9 %; Neutrophils # 4.9 K/mcL (1.6-8.9); Platelet Count 233 K/mcL (140-400); Red Blood Count 4.75 M/mcL (3.82-4.97); Red Cell Distribution Width 13.1 % (11.5-14.5); Segmented Neutrophils % 57.6 %
[2016-08-02 06:45] LABS: Calcium 9.3 mg/dL (8.6-10.8); Phosphorous 3.3 mg/dL (2.3-4.7); Potassium 3.9 mEq/L (3.5-4.5)
[2016-08-02] MEDS ORDERED: Nicotine 7 MG PATCH.TD24 TD SCH (09:00)
--- NOTE | 2016-08-02 09:57 | Discharge Summary ---
<Shon Farah - Last Filed: 08/02/16 09:55> Date of Encounter: 08/02/16 Time of Encounter: 08:30 - Discharge Diagnosis (1) Drug overdose Priority: Primary Status: Acute Qualifiers: Encounter type: initial encounter Injury intent: intentional self-harm Qualified Code(s): T50.902A - Poisoning by unspecified drugs, medicaments and biological substances, intentional self-harm, initial encounter (2) Depression with suicidal ideation Priority: Primary Status: Acute (3) UTI (urinary tract infection) Priority: Secondary Status: Resolved Qualifiers: Urinary tract infection type: site unspecified Hematuria presence: without hematuria Qualified Code(s): N39.0 - Urinary tract infection, site not specified (4) Prolonged Q-T interval on ECG Priority: Primary Status: Acute (5) CKD (chronic kidney disease) stage 3, GFR 30-59 ml/min Priority: Secondary Status: Chronic (6) DVT prophylaxis Priority: Secondary Status: Acute - Discharge Medications Prescriptions: Bupropion HCl [Wellbutrin Xl] 300 mg PO DAILY 14 Days clonazePAM [Klonopin] 0.25 mg PO DAILY PRN #15 tablet PRN Reason: Anxiety Nicotine Patch [Nicoderm] 7 mg TD DAILY 14 Days Venlafaxine [Effexor] 37.5 mg PO BID 14 Days Home Medications: Docusate [Colace] 100 mg PO DAILY 12/05/14 [History] Estradiol [Estrace] 1 mg PO DAILY 12/05/14 [History] Multivitamin [Flintstones] 1 tab PO DAILY 12/05/14 [History] Omeprazole [PriLOSEC] 40 mg PO DAILY 12/05/14 [History] Ibuprofen [Motrin] 800 mg PO Q6-8H PRN #30 tablet 08/31/15 [Rx] Doxepin [Sinequan] 25 mg PO HS 08/01/16 [History] Gabapentin [Neurontin] 100 mg PO TID 08/01/16 [History] Propranolol [Inderal] 10 mg PO TID 08/01/16 [History] lamoTRIgine [Lamotrigine] 200 mg PO BID 08/01/16 [History] Bupropion HCl [Wellbutrin Xl] 300 mg PO DAILY 14 Days 08/02/16 [Rx] Nicotine Patch [Nicoderm] 7 mg TD DAILY 14 Days 08/02/16 [Rx] Venlafaxine [Effexor] 37.5 mg PO BID 14 Days 08/02/16 [Rx] clonazePAM [Klonopin] 0.25 mg PO DAILY PRN #15 tablet 08/02/16 [Rx] Allergies/Adverse Reactions: Allergies acetaminophen [From Tylenol] Allergy (Verified 12/05/14 12:18) See Comments Penicillins Allergy (Verified 12/05/14 12:18) See Comments Procedures/tests Complete & Pending: Procedures Performed prior 72 hours Category Date Time Status ECG 12 lead ECG [ECG] Routine Y 07/31/16 23:47 Completed ECG 12 lead ECG [ECG] Routine Y 08/01/16 04:49 Completed ECG 12 lead ECG [ECG] Routine Y 08/02/16 05:00 Completed Date of admission: 08/01/16 00:52 Primary care physician: PCP NO Consults: 08/01/16 02:26 Consult to Technical Support Analyst [CONS] Routine Reason for SW Consult: SI 08/01/16 11:10 Consult to Psychiatry [CONS] Routine Consulting Provider: Psychiatry Zofia Reason for Consult: Suicide attempt vis intentional OD with lamotrigine and klonipin. History of depression and bipolar Call Completed: Yes Discharging clinician: Shon Farah Anticipated date of discharge: 08/02/16 - Patient Status Disposition: Transfer Psychiatric Hosp Condition: Good Functional capacity at discharge: independent ambulation Overall status at discharge: patient is progressing back to baseline - Discharge Instructions Follow Up With: David Coffman, [employer] [Advanced Practice Nurse] - Additional Instructions: Follow up with your PCP in 1-2 weeks after discharge Medication management per psychiatry Follow up with your psychiatrist in 1-2 weeks following discharge - Diet and Activity Activity: increase activity as tolerated Diet: advance to your usual diet Interval History: Patient is doing well this morning with no concerns/complaints. She reports that she is feeling well, with no chest pain, shortness of breath, fever/chills , nausea/vomiting, dizziness or weakness. Hospital course: Ms. Garcia is a 56 year old female with prior medical history of bipolar, depression, PTSD, and having prior suicide attempts. She reportedly took 30 tablets of lamotrigine and 30 klonipin, then called EMS and was brought to the hospital. At presentation she was having prolongation of her QTc and received IV bicarbonate. She was monitored closely over the next couple days and her QTc corrected. She reportedly was feeling overwhelmed with her life with feelings of guilt, loss, many medical appointments, and self-loathing prior to her most recent suicide attempt. When seen initially she was tearful and depressed, but as of today she seems to be doing better. She was seen by psychiatry and approved for transfer to the inpatient psychiatric unit at [facility] when patient medically stable. As of today patient is safe/stable for transfer to inpatient psychiatry. - Time Spent with Patient Total time spent providing and/or coordinating discharge services: - Constitutional Vitals: Temp Pulse Resp BP Pulse Ox 98.7 F 79 18 110/71 92 08/02/16 00:26 08/02/16 00:26 08/02/16 00:26 08/02/16 00:08/02/16 00:26 General appearance: Present: cooperative, disheveled, A&O X 3, answers questions appropriately <Lelo Singleton - Last Filed: 08/02/16 16:05> Date of Encounter: 08/02/16 Procedures/tests Complete & Pending: Procedures Performed prior 72 hours Category Date Time Status ECG 12 lead ECG [ECG] Routine Y 07/31/16 23:47 Completed ECG 12 lead ECG [ECG] Routine Y 08/01/16 04:49 Completed ECG 12 lead ECG [ECG] Routine Y 08/02/16 05:00 Completed ECG 12 lead ECG [ECG] Routine Y 08/02/16 09:18 Completed Date of admission: 08/01/16 00:52 Primary care physician: PCP NO Consults: 08/01/16 02:26 Consult to Technical Support Analyst [CONS] Routine Reason for SW Consult: SI 08/01/16 11:10 Consult to Psychiatry [CONS] Routine Consulting Provider: Psychiatry Greenwald Reason for Consult: Suicide attempt vis intentional OD with lamotrigine and klonipin. History of depression and bipolar Call Completed: Yes Hospital course: Ms. Garcia is a 56 year old female - Time Spent with Patient Total time spent providing and/or coordinating discharge services: - Constitutional Vitals: Temp Pulse Resp BP Pulse Ox 98.7 F 79 18 110/71 92 08/02/16 00:26 08/02/16 00:26 08/02/16 00:26 08/02/16 00:26 08/02/16 00:26 - Attending Attestation I examined this patient and reviewed laboratory, imaging and all diagnostic data. My medical decision-making was reviewed with Dr Shon Farah - Resident Physician. I agree with the documented findings, disposition and treatment plan as described above with the following additions.
--- NOTE | 2016-08-03 12:25 | Electrocardiograph Report ---
[address] [address] Test Date: 2016-08-01 Pat Name: Jimmy Garcia Department: 109 Room: 3B43 Gender: F Social Work Administrator: ELLE : 1960 Requested By: Shon Farah Order Number: [id number] Reading MD: Archie Lora Measurements Intervals [place] Rate: 66 P: -5 [place]: 175 QRS: 111 QRSD: 111 T: 81 QT: 423 QTc: 437 Interpretive Statements SINUS RHYTHM POSSIBLE RIGHT VENTRICULAR HYPERTROPHY NONSPECIFIC T-WAVE ABNORMALITY Electronically Signed On 08-03-2016 12:23:58 EDT by Archie Lora
--- NOTE | 2016-08-03 12:42 | Electrocardiograph Report ---
[address] [place] [address] Test Date: 2016-08-02 Pat Name: Jimmy Garcia Department: 113 Room: 3B43 Gender: F Cream Dumper: DIEGO : 1960 Requested By: Lelo Singleton Order Number: [id number] Reading MD: Archie Lora Measurements Intervals [place] Rate: 77 P: 48 [place]: 138 QRS: -52 QRSD: 107 T: -24 QT: 417 QTc: 449 Interpretive Statements SINUS RHYTHM PATTERN CONSISTENT WITH PULMONARY DISEASE LEFT ANTERIOR FASCICULAR BLOCK MODERATE T-WAVE ABNORMALITY, CONSIDER ANTERIOR ISCHEMIA Electronically Signed On 08-03-2016 12:40:53 EDT by Archie Lora
== END 2016-08-02 12:30 ==
LOC: ICNU 21:46 → EMEROO 21:46 → ICNU 08-01 01:55 → SUATTDRO 08-01 05:27 → 3BNU 08-01 23:44
PROVIDERS: ADMIT Internal Medicine; ATTEND Internal Medicine

== ENCOUNTER 2016-08-02 12:34 | Inpatient (IN) ==
[2016-08-02] MEDS ORDERED: Ibuprofen 800 MG TABLET PO PRN (12:49)
[2016-08-02] MEDS ORDERED: clonazePAM 0.5 MG TABLET PO PRN (12:49)
[2016-08-02] MEDS ORDERED: Mag Hydrox/Al Hydrox/Simeth 30 ML UDC PO PRN (12:53)
[2016-08-02] MEDS ORDERED: Haloperidol Lactate 5 MG/ML VIAL IM PRN (12:53)
[2016-08-02] MEDS ORDERED: MOM Conc 10 ML UD.LIQ PO PRN (12:53)
[2016-08-02] MEDS ORDERED: traZODone 50 MG TABLET PO PRN (12:53)
[2016-08-02] MEDS ORDERED: hydrOXYzine pamoate 25 MG CAPSULE PO PRN (12:53)
[2016-08-02] MEDS ORDERED: *HR* LORazepam 2 MG/ML VIAL IM PRN (12:53)
[2016-08-02] MEDS ORDERED: Ibuprofen 400 MG TABLET PO PRN (12:53)
[2016-08-02] MEDS ORDERED: *HR* LORazepam 1 MG TABLET PO PRN (12:53)
[2016-08-02] MEDS: Gabapentin 100 MG CAPSULE PO SCH ×2 (16:22→22:07)
[2016-08-02] MEDS: lamoTRIgine 100 MG TABLET PO SCH (22:07)
[2016-08-03] MEDS ORDERED: Nicotine 7 MG PATCH.TD24 TD SCH (09:00)
[2016-08-03] MEDS ORDERED: Nicotine 14 MG PATCH.TD24 TD SCH (09:00)
[2016-08-03] MEDS: Gabapentin 100 MG CAPSULE PO SCH ×3 (09:28→20:40)
[2016-08-03] MEDS: Multivit/Ca/Min/Fe/FA 1 TAB TABLET PO SCH (09:28)
[2016-08-03] MEDS: lamoTRIgine 100 MG TABLET PO SCH ×2 (09:28→20:40)
[2016-08-03] MEDS: BuPROPion XL (24 HR) 150 MG TABLET PO SCH (09:28)
--- NOTE | 2016-08-03 11:16 | Psychiatry History & Physical ---
Date of Encounter: 08/03/16 Time of Encounter: 11:05 History of Present Illness Patient Stated Chief Complaint: suicide attempt Medicare Admission Attestation: For traditional Medicare patients the provided hospital inpatient services are reasonable and necessary and in the case of services not specified as inpatient -only under 42 CFR 419.22 (n), that they are appropriately provided as inpatient services in accordance 42 CFR 412.3. For Critical Access Hospital the patient may reasonably be expected to be discharged or transferred to a hospital within 96 hours after admission to the Critical Access Hospital. Admitted From: Home Plans for Post Hospital Care: Home History of Present Illness: Ms. Garcia is a 56 year old female who overdosed on her home supply of Klonopin and Lamictal. Called the squad herself. Admitted to 1A yesterday. Reports she is already feeling better. "I just got to learn not to let it (life) overwhelm me." Claims biggest stressor is multiple doctors appointments over the past two months for "stomach problems and back problems." Has a hiatal hernia that is scheduled for surgical repair in early August. Also sees providers for physical therapy and injections due to DDD. Claims she has one to two doctors appointments every weekday and that this has been going on for the past two months. Also reports she has not dealt with the of her mother ten years ago. Wants grief counseling. Already well linked. Has an emotional therapy dog. Sees providers through [facility]. Feels current medication regimen works for her. May just need linked with support groups and assistance with coping skills. Will discuss options with social work on Friday. Client already has housing so she can likely be discharged early next week if she is no longer feeling suicidal. Past Med Surg Social Fam HX - Past Medical History Medical history: non-contributory, GERD - Past Psychiatric History Psychiatric history: Reports: depression, prior suicide attempt Family psychiatric history: Unknown Family History of Suicide: Unknown - Past Surgical History Surgical History: hysterectomy, other - Social History Smoking Status: Current every day smoker Smokeless Tobacco Status: No Alcohol use: none Drug use: marijuana Medications & Allergies Docusate [Colace] 100 mg PO DAILY 12/05/14 [History] Estradiol [Estrace] 1 mg PO DAILY 12/05/14 [History] Multivitamin [Flintstones] 1 tab PO DAILY 12/05/14 [History] Omeprazole [PriLOSEC] 40 mg PO DAILY 12/05/14 [History] Ibuprofen [Motrin] 800 mg PO Q6-8H PRN #30 tablet 08/31/15 [Rx] Doxepin [Sinequan] 25 mg PO HS 08/01/16 [History] Gabapentin [Neurontin] 100 mg PO TID 08/01/16 [History] Propranolol [Inderal] 10 mg PO TID 08/01/16 [History] lamoTRIgine [Lamotrigine] 200 mg PO BID 08/01/16 [History] Bupropion HCl [Wellbutrin Xl] 300 mg PO DAILY 14 Days 08/02/16 [Rx] Nicotine Patch [Nicoderm] 7 mg TD DAILY 14 Days 08/02/16 [Rx] Venlafaxine [Effexor] 37.5 mg PO BID 14 Days 08/02/16 [Rx] clonazePAM [Klonopin] 0.25 mg PO DAILY PRN #15 tablet 08/02/16 [Rx] Allergies acetaminophen [From Tylenol] Allergy (Verified 12/05/14 12:18) See Comments Penicillins Allergy (Verified 12/05/14 12:18) See Comments Review of Systems Constitutional: Denies: fever, chills, weakness, weight change Eyes: Denies: eye pain, vision change Ears, Nose, Throat: Denies: ear pain, throat pain, dental pain, hearing loss, congestion Cardiovascular: Denies: chest pain, palpitations, dyspnea on exertion Respiratory: Denies: cough, dyspnea, wheezes Gastrointestinal: Reports: other. Denies: abdominal pain, nausea, vomiting, diarrhea, constipation Genitourinary female: Denies: urgency, dysuria, frequency, abnormal menses, dyspareunia Musculoskeletal: Reports: back pain. Denies: joint swelling, joint pain Integumentary: Denies: rash, lesions, pruritus Neurological: Reports: weakness. Denies: headache, numbness, memory loss Endocrine: Denies: fatigue, heat or cold intolerance Hematologic/Lymphatic: Denies: easy bruising, lymphadenopathy Allergic/Immunologic: Denies: urticaria, itchy eyes Mental Status Exam Patient orientation: Yes Person, Yes Time, Yes Place Level of alertness: Alert Patient appearance: Appropriate, Well Groomed Behavior: calm Psychomotor activity: Slowed Eye contact: Maintains Eye Contact Mood description: Depressed Affect description: tearful Speech pattern: Normal rate, Normal rhythm, Normal tone Speech volume: Normal Thought process: Linear Thought content: No Suicidal ideation, No Homicidal ideation, No Overt delusions Perceptual disturbances: No Auditory hallucinations, No Visual hallucinations Attention span: Capable of Focused Attention Memory description: Grossly Intact Patient reliability: Reliable Historian Intelligence estimate: Average Judgment: Limited Insight: Minimal Exam - HEENT Head exam IM: Present: atraumatic Eye exam IM: Present: EOMI ENT exam IM: Present: mucous membranes moist - Neurological Neurological exam IM: Present: alert, oriented X3 - Respiratory Respiratory exam IM: Present: CTAB - GI/Abdominal GI/Abdominal exam IM: Present: hernia - Extremities Extremities exam IM: Present: full ROM - Skin Skin exam IM: Present: intact Results - Vital Signs Vital signs: Temp Pulse Resp BP 98 F 75 16 121/88 08/03/16 09:00 08/03/16 09:00 08/03/16 09:00 08/03/16 09:00 Assessment and Plan (1) Depression with suicidal ideation Current visit: No Status: Acute Plan: Admit inpatient for safety and stabilization, Close observation, Suicide Precautions per unit protocol, Encourage participation in unit milieu, Group Therapy, Monitor sleep, Monitor appetite Risks, benefits, side effects, alternatives discussed w/pt: Yes Patient agreeable to treatment: Yes Plans for Post Hospital Care: Home
[2016-08-03] MEDS: Nicotine 14 MG PATCH.TD24 TD SCH (13:56)
[2016-08-04] MEDS: Nicotine 14 MG PATCH.TD24 TD SCH (08:49)
[2016-08-04] MEDS: Multivit/Ca/Min/Fe/FA 1 TAB TABLET PO SCH (08:49)
[2016-08-04] MEDS: lamoTRIgine 100 MG TABLET PO SCH ×2 (08:50→20:29)
[2016-08-04] MEDS: BuPROPion XL (24 HR) 150 MG TABLET PO SCH (08:50)
[2016-08-04] MEDS: Gabapentin 100 MG CAPSULE PO SCH ×3 (08:51→20:29)
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
[2016-08-05 08:39] VITALS: BP 123/86
[2016-08-05] MEDS: Nicotine 14 MG PATCH.TD24 TD SCH (09:50)
[2016-08-05] MEDS: Gabapentin 100 MG CAPSULE PO SCH (09:51)
[2016-08-05] MEDS: lamoTRIgine 100 MG TABLET PO SCH (09:52)
[2016-08-05] MEDS: Multivit/Ca/Min/Fe/FA 1 TAB TABLET PO SCH (09:53)
[2016-08-05] MEDS: BuPROPion XL (24 HR) 150 MG TABLET PO SCH (09:59)
--- NOTE | 2016-08-05 12:00 | Discharge Summary ---
Date of Encounter: 08/05/16 Time of Encounter: 11:54 Diagnosis - Discharge Diagnosis (1) Depression with suicidal ideation Status: Acute Medications - Discharge Medications Prescriptions: Bupropion HCl [Wellbutrin Xl] 300 mg PO DAILY 14 Days clonazePAM [Klonopin] 0.25 mg PO DAILY PRN #15 tablet PRN Reason: Anxiety Docusate [Colace] 100 mg PO DAILY #30 capsule Estradiol [Estrace] 1 mg PO DAILY #30 tablet Gabapentin [Neurontin] 100 mg PO TID #90 capsule lamoTRIgine [Lamictal] 100 mg PO BID #60 tablet Omeprazole [PriLOSEC] 40 mg PO DAILY #30 capsule. Propranolol [Inderal] 10 mg PO TID #90 tablet Venlafaxine [Effexor] 37.5 mg PO BID 14 Days Multivitamin [Flintstones] 1 tab PO DAILY 12/05/14 [History] Ibuprofen [Motrin] 800 mg PO Q6-8H PRN #30 tablet 08/31/15 [Rx] Nicotine Patch [Nicoderm] 7 mg TD DAILY 14 Days 08/02/16 [Rx] Bupropion HCl [Wellbutrin Xl] 300 mg PO DAILY 14 Days 08/05/16 [Rx] Docusate [Colace] 100 mg PO DAILY #30 capsule 08/05/16 [Rx] Estradiol [Estrace] 1 mg PO DAILY #30 tablet 08/05/16 [Rx] Gabapentin [Neurontin] 100 mg PO TID #90 capsule 08/05/16 [Rx] Omeprazole [PriLOSEC] 40 mg PO DAILY #30 capsule. 08/05/16 [Rx] Propranolol [Inderal] 10 mg PO TID #90 tablet 08/05/16 [Rx] Venlafaxine [Effexor] 37.5 mg PO BID 14 Days 08/05/16 [Rx] clonazePAM [Klonopin] 0.25 mg PO DAILY PRN #15 tablet 08/05/16 [Rx] lamoTRIgine [Lamictal] 100 mg PO BID #60 tablet 08/05/16 [Rx] Allergies acetaminophen [From Tylenol] Allergy (Verified 12/05/14 12:18) See Comments Penicillins Allergy (Verified 12/05/14 12:18) See Comments Provider Date of admission: 08/02/16 12:34 Discharging clinician: Poly Grace Assessment and Plan - Patient/Caregiver Discharge Instructions Activity: resume usual activities as tolerated Diet: low fat, low cholesterol - Follow up Plan Follow up with: [facility]ON [facility] [Outside] (The above appointment is with Mali Wynn, counselor.) Geri Martínez [facility] [Outside] - 08/12/16 11:00 am (The above appointment is with Sarah Leahy. You will also see her again on 08/26/16 at 2: 00pm.) [facility] [employer] Professor Karrie [Outside] - 09/18/16 10:30 am (The above appointment is with Marta Wiley, psychiatric provider.) Functional capacity at discharge: independent ambulation Overall status at discharge: Stable Disposition: Home, Self-Care Hospital Course Hospital course: Ms. Garcia is a 56 year old female who was admitted following an OD attempt. She endorsed multiple stressors but indicated her constant doctor's appointments is what left her feeling overwhelmed. On the unit she improved quickly. She reported gaining new perspective. She was bright, reactive, and social throughout her inpatient stay. She started denying SI shortly after admission. She ate and slept well. She was referred for grief counseling at her request. She was already well linked with community providers prior to her admission. She was given a bus token on the day of discharge. She is very familiar with the bus system. She had a positive outlook on her life on the day of discharge. She denied all SI/HI/AH/VH on the day of discharge. - Time Spent with Patient Total time spent providing and/or coordinating discharge services: Quality - Multiple Antipsychotics Patient discharged on 2 or more antipsychotic medications: No Procedures - Procedures Procedures: Medication Management, Crisis Stabilization, Supportive Therapy, Group Therapy Mental Status Exam - Mental Status Exam Patient orientation: Yes Person, Yes Time, Yes Place Level of alertness: Alert Patient appearance: Appropriate, Well Groomed Behavior: calm, cooperative Psychomotor activity: Normal Eye contact: Maintains Eye Contact Mood description: Euthymic/stable Affect description: congruent with mood, full range Speech pattern: Normal rate, Normal rhythm, Normal tone Speech Volume: Normal Thought process: Linear, Goal Oriented Thought Content: No Suicidal ideation, No Homicidal ideation, No Overt delusions Perceptual Disturbances: No Auditory hallucinations, No Visual hallucinations Judgment: Fair Insight: Partial
== END 2016-08-05 13:05 | disposition home or self-care (01) | DRG 754 ==
LOC: SUATTDRO 12:34 → 1ANU 12:34
PROVIDERS: ADMIT Psychiatry & Neurology Psychiatry; ATTEND Psychiatry & Neurology Psychiatry

== ENCOUNTER 2017-01-15 18:40 | Inpatient (IN) ==
[2017-01-15 19:28] LABS: Bilirubin,Urine Negative (Negative); Blood,Urine Negative (Negative); Clarity,Urine Clear (Clear); Color,Urine Yellow (Yellow); Glucose,Urine (UA) Normal (Normal); Ketones,Urine Negative (Negative); Leukocyte Esterase,Urine Negative (Negative); Nitrite,Urine Negative (Negative); Protein,Urine Negative (Neg-Trace); Specific Gravity,Urine 1.016 (1.010-1.025); Urobilinogen,Urine Normal (Normal)
[2017-01-15 19:33] LABS: Amphetamine Screen,Urine Negative ng/mL (Cutoff=1000); Barbiturate Screen,Urine Negative ng/mL (Cutoff=200); Benzodiazepines Screen,Urine Negative ng/mL (Cutoff=200); Cannabinoid Screen,Urine Negative ng/mL (Cutoff = 50); Cocaine Screen,Urine Negative ng/mL (Cutoff= 300); Opiate Screen,Urine Negative ng/mL (Cutoff=300); Phencyclidine Screen,Urine Negative ng/mL (Cutoff=25)
[2017-01-15 19:43] LABS: Basophils % 0.4 %; Eosinophils # 0.2 K/mcL (0.0-0.6); Eosinophils % 2.3 %; Hematocrit 45.9 % (35.3-44.9); Hemoglobin 15.2 g/dL (11.5-15.4); Immature Granulocytes % 0.2 % (0-4); Lymphocytes % 43.4 %; Mean Corpuscular HGB Conc 33.1 g/dL (31.6-35.5); Mean Corpuscular Hemoglobin 29.2 pg (28.0-33.3); Mean Corpuscular Volume 88.3 fL (83.0-100.0); Mean Platelet Volume 9.8 fL (9.4-12.4); Monocytes # 0.6 K/mcL (0.0-1.3); Neutrophils # 4.3 K/mcL (1.6-8.9); Platelet Count 277 K/mcL (140-400); Red Cell Distribution Width 12.1 % (11.5-14.5); Segmented Neutrophils % 46.7 %
[2017-01-15 19:53] LABS: BUN/Creatinine Ratio 15 (6-26); Blood Urea Nitrogen 18 mg/dL (7-20); Calcium 9.5 mg/dL (8.6-10.8); Carbon Dioxide 22 mEq/L (19-29); Chloride 108 mEq/L (98-109); Glucose 77 mg/dL (70-99); Osmolality,Calculated 291 (280-300); Potassium 4.7 mEq/L (3.5-4.5); Sodium 140 mEq/L (136-145); eGFR For African Americans 57 (> 60); eGFR For Non-African Americans 47 (> 60)
[2017-01-15 20:09] LABS: Acetaminophen < 1.0 mcg/mL (10-30); Ethanol < 10 mg/dL (0-10); Salicylate < 5.0 mg/dL (15-30)
--- NOTE | 2017-01-15 22:36 | Emergency Department Note ---
Disposition Clinical Impression: Medical clearance for psychiatric admission Suicide attempt by multiple drug overdose Qualifiers: Encounter type: subsequent encounter Qualified Code(s): T50.902D - Poisoning by unspecified drugs, medicaments and biological substances, intentional self- harm, subsequent encounter Disposition: Still a Patient General Adult HPI - General Chief complaint: ED Overdose Stated complaint: OD/SI Time Seen by Provider: 01/15/17 18:44 Source: patient, EMS Mode of arrival: EMS Limitations: altered mental status Nursing Notes Reviewed: Yes Vital Signs Reviewed: Yes - History of Present Illness HPI Narrative: 56-year-old female presenting to the emergency Department chief complaint of overdose and suicide attempt. According to EMS patient's boyfriend José called EMS when he went home and found her overdosed on prescription pills. Unknown what these prescription pills were. They were told that there was a bottle of trazodone, gabapentin and hydroxyzine found empty in the top of the trashcan. The trazodone bottle were 30 tablets 100 mg filled 12/01/2015. The hydroxyzine was 50 mg of an unknown amount that was filled in 05/11/2014 and the gabapentin was 90 tablets of 100 mg filled on 12/09/2016. Patient is also currently taking Lamictal, Wellbutrin, propanolol, calcium, Flexeril, estradiol, doxepin. Pain Scale: 0 - Related Data Home Medications Medication Instructions Recorded Confirmed Multivitamin [Flintstones] 1 tab PO DAILY 12/05/14 01/16/17 Cyclobenzaprine [Flexeril] 10 mg PO TID 09/23/16 01/16/17 Polyethylene Glycol 3350 17 gm PO DAILY PRN 09/23/16 01/16/17 lamoTRIgine [Lamictal] 200 mg PO BID 09/23/16 01/16/17 ARIPiprazole [Abilify] 10 mg PO DAILY 01/16/17 01/16/17 Doxepin HCl 50 mg PO DAILY 01/16/17 01/16/17 HydrOXYzine Pamoate [Vistaril] 50 mg PO TID 01/16/17 01/16/17 Linaclotide [Linzess] 145 mcg PO DAILY 01/16/17 01/16/17 Trazodone HCl 100 mg PO HS 01/16/17 01/16/17 Previous Rx's Medication Instructions Recorded Bupropion HCl [Wellbutrin Xl] 300 mg PO DAILY 14 Days tab.er.24h 08/05/16 Estradiol [Estrace] 1 mg PO DAILY #30 tablet 08/05/16 Gabapentin [Neurontin] 100 mg PO TID #90 capsule 08/05/16 Propranolol [Inderal] 10 mg PO TID #90 tablet 08/05/16 Allergies Allergy/AdvReac Type Severity Reaction Status Date / Time acetaminophen [From Tylenol] Allergy See Verified 09/03/16 15:38 Comments morphine Allergy Hypotension Verified 09/03/16 15:38 Penicillins Allergy See Verified 09/03/16 15:38 Comments Limitations: ROS unobtainable due to patients medical condition Past Medical History - Past Medical History Source: unable to obtain Medical history: Reports: GERD Surgical history: Reports: hysterectomy, other Psychiatric history: Reports: depression, prior suicide attempt - Social History Smoking Status: Current every day smoker Smokeless Tobacco Status: No Alcohol use: Reports: none Drug use: Reports: marijuana Physical Exam - General Limitations: no limitations General appearance: lethargic - Head Head exam: atraumatic, normocephalic, normal inspection - Eye Eye exam: Present: normal appearance, PERRL. Absent: scleral icterus, conjunctival injection - Chest Chest inspection: Present: normal inspection, symmetric chest wall rise. Absent : tenderness, rash - Respiratory Respiratory exam: Present: normal lung sounds bilaterally. Absent: respiratory distress, wheezes - Cardiovascular Cardiovascular exam: Present: regular rate, normal rhythm, normal heart sounds - Abdominal Exam Abdominal exam: Present: soft, Non-Tender. Absent: distention, guarding, rebound - Extremities Exam Extremities exam: Present: normal inspection, full ROM - Psychiatric Psychiatric exam: Present: depressed, suicidal ideation - Skin Skin exam: Present: warm, intact Course Course Narrative: 56-year-old female presenting to the emergency department after an unknown drug ingestion. Patient arrived vital signs were stable. She refused to speak with us or tell us any of her history. We were concerned due to the propanolol and the tricyclic antidepressant that she had prescribed to her. We spoke at length with her boyfriend José at home he went through all of the prescription bottles. The propanolol bottle just recently filled was completely full along with the tricyclic antidepressant. The only empty bottles found were trazodone , gabapentin and hydroxyzine. It is unknown how many pills were in each of these bottles. I spoke with the [facility] who stated that the workup that we completed with EKG and basic lab work was appropriate. They stated if within 4 hours the patient did not have any symptoms at all or any changes in vital signs that she would be medically clear. Patient ingested the pills around 5:30 PM therefore around 9:30 PM patient should be medically cleared as long as no changes. Throughout her stay patient's vitals were within normal limits. Patient ambulated with no complaints. We have called one A to come to bedside to assess the patient due to her suicide attempt. Patient alert and oriented 3 in the room with stable vital signs. Her disposition is pending 1 A request. - Reevaluation(s) Reevaluation #1: 1A has consulted on the patient. Pending their results. At this time I will sign the patient out to my fellow resident Dr. Mc. Patient's alert and oriented 3 in the room with stable vital signs at this time. Vital Signs Temperature 97.9 F 01/15/17 18:44 Pulse Rate 62 01/15/17 18:44 Respiratory Rate 18 01/15/17 18:44 Blood Pressure 142/86 01/15/17 18:44 O2 Sat by Pulse Oximetry 96 01/15/17 18:44 Temperature 97.6 F 01/16/17 09:00 Pulse Rate 74 01/16/17 15:50 Respiratory Rate 16 01/16/17 09:00 Blood Pressure 116/79 01/16/17 15:50 O2 Sat by Pulse Oximetry 100 01/15/17 20:05 Oxygen Delivery Oxygen Delivery Room Air Medical Decision Making - Lab Data Result diagrams: 01/15/17 19:27 01/15/17 19:27 Lab Results 01/15/17 01/15/17 01/15/17 Range/Units 19:11 19:11 19:11 WBC (4.3-11.1) K/mcL RBC (3.82-4.97) M/mcL Hgb (11.5-15.4) g/dL Hct (35.3-44.9) % MCV (83.0-100.0) fL MCH (28.0-33.3) pg MCHC (31.6-35.5) g/dL RDW (11.5-14.5) % Plt Count (140-400) K/mcL MPV (9.4-12.4) fL Immature Gran % (0-4) % Seg Neutrophils % % Lymphocytes % % Monocytes % % Eosinophils % % Basophils % % Neutrophils # (1.6-8.9) K/mcL Lymphocytes # (0.6-4.6) K/mcL Monocytes # (0.0-1.3) K/mcL Eosinophils # (0.0-0.6) K/mcL Basophils # (0.0-0.2) K/mcL Sodium (136-145) mEq/L Potassium (3.5-4.5) mEq/L Chloride (98-109) mEq/L Carbon Dioxide (19-29) mEq/L BUN (7-20) mg/dL Creatinine (0.57-1.11) mg/dL Est GFR ( Amer) (> 60) Est GFR (Non-Af Amer) (> 60) BUN/Creatinine Ratio (6-26) Glucose (70-99) mg/dL Calculated Osmolality (280-300) Calcium (8.6-10.8) mg/dL Urine Color Yellow (Yellow) Urine Clarity Clear (Clear) Urine pH 6.0 (5.0-8.0) pH Units Ur Specific [place] 1.016 (1.010-1.025) Urine Protein Negative (Neg-Trace) mg/dL Urine Glucose (UA) Normal (Normal) mg/dL Urine Ketones Negative (Negative) mg/dL Urine Blood Negative (Negative) Urine Nitrite Negative (Negative) Urine Bilirubin Negative (Negative) Urine Urobilinogen Normal (Normal) mg/dL Ur Leukocyte Esterase Negative (Negative) Urine Test Negative (Negative) Salicylates (15-30) mg/dL Urine Opiates Screen Negative (Cicygr=069) ng/mL Acetaminophen (10-30) mcg/mL Ur Barbiturates Screen Negative (Xqumvq=633) ng/mL Ur Phencyclidine Scrn Negative (Cutoff=25) ng/mL Ur Amphetamines Screen Negative (Ncosrk=7011) ng/mL U Benzodiazepines Scrn Negative (Wmjunw=673) ng/mL Urine Cocaine Screen Negative (Cutoff= 300) ng/mL U Marijuana (THC) Screen Negative (Cutoff = 50) ng/mL Ethyl Alcohol (0-10) mg/dL 01/15/17 01/15/17 Range/Units 19:27 19:27 WBC 9.1 (4.3-11.1) K/mcL RBC 5.20 H (3.82-4.97) M/mcL Hgb 15.2 (11.5-15.4) g/dL Hct 45.9 H (35.3-44.9) % MCV 88.3 (83.0-100.0) fL MCH 29.2 (28.0-33.3) pg MCHC 33.1 (31.6-35.5) g/dL RDW 12.1 (11.5-14.5) % Plt Count 277 (140-400) K/mcL MPV 9.8 (9.4-12.4) fL Immature Gran % 0.2 (0-4) % Seg Neutrophils % 46.7 % Lymphocytes % 43.4 % Monocytes % 7.0 % Eosinophils % 2.3 % Basophils % 0.4 % Neutrophils # 4.3 (1.6-8.9) K/mcL Lymphocytes # 4.0 (0.6-4.6) K/mcL Monocytes # 0.6 (0.0-1.3) K/mcL Eosinophils # 0.2 (0.0-0.6) K/mcL Basophils # 0.0 (0.0-0.2) K/mcL Sodium 140 (136-145) mEq/L Potassium 4.7 H (3.5-4.5) mEq/L Chloride 108 (98-109) mEq/L Carbon Dioxide 22 (19-29) mEq/L BUN 18 (7-20) mg/dL Creatinine 1.19 H (0.57-1.11) mg/dL Est GFR ( Amer) 57 L (> 60) Est GFR (Non-Af Amer) 47 L (> 60) BUN/Creatinine Ratio 15 (6-26) Glucose 77 (70-99) mg/dL Calculated Osmolality 291 (280-300) Calcium 9.5 (8.6-10.8) mg/dL Urine Color (Yellow) Urine Clarity (Clear) Urine pH (5.0-8.0) pH Units Ur Specific [place] (1.010-1.025) Urine Protein (Neg-Trace) mg/dL Urine Glucose (UA) (Normal) mg/dL Urine Ketones (Negative) mg/dL Urine Blood (Negative) Urine Nitrite (Negative) Urine Bilirubin (Negative) Urine Urobilinogen (Normal) mg/dL Ur Leukocyte Esterase (Negative) Urine Test (Negative) Salicylates < 5.0 L (15-30) mg/dL Urine Opiates Screen (Bsqsrx=322) ng/mL Acetaminophen < 1.0 L (10-30) mcg/mL Ur Barbiturates Screen (Mqhffw=664) ng/mL Ur Phencyclidine Scrn (Cutoff=25) ng/mL Ur Amphetamines Screen (Jpfenw=5014) ng/mL U Benzodiazepines Scrn (Auancw=626) ng/mL Urine Cocaine Screen (Cutoff= 300) ng/mL U Marijuana (THC) Screen (Cutoff = 50) ng/mL Ethyl Alcohol < 10 (0-10) mg/dL - EKG Data EKG #1 EKG attestation: Yes I reviewed and interpreted this EKG. EKG results narrative: Sinus rhythm with occasional PACs. 67 bpm. AK interval 180, QRS 107, QTc 450. No sign of acute ST segment elevation or ischemia. When compared to previous EKG completed on 09/03/2016with again changes noted Attestation Statement - Attestation Attestation: I examined this patient and my medical decision-making was reviewed with the Resident Physician, Dr. Shepard. I agree with the documented findings, disposition and treatment plan as described except to the extent set forth below. Patient is a 56-year-old white female who is brought to us by EMS today for intentional overdose in an attempt to commit suicide. Patient arrives awake all those drowsy, follows commands but very limited history due to her not wanting to be cooperative with questioning on arrival. Patient does admit to overdosing on home medications at approximately 5:30 this afternoon due to an attempt to kill herself. He should with a known history of depression. Apparently the patient's boyfriend found her with decreased level of responsiveness in her apartment with empty pill bottles in a trash can close by. He called 911 and she arrived here for evaluation. Patient has a long list of medications that EMS brought with them but she could not tell us what medicines she actually took she just said her "sleeping pills". Patient states she vomited approximately 3 times shortly after taking the pills and currently is complaining of mild nausea. She denies any chest pain or pressure no palpitations no shortness of breath no diaphoresis no abdominal pain or cramping no other associated symptoms at this time. Patient denies any alcohol or recreational drug use. I agree with patient's physical exam findings as documented. Vital signs are stable on arrival. Patient was placed in a monitored bed and initially placed on pacer pads and atropine was brought to bedside in case her vitals abruptly changed as we were not sure what she had ingested. IV saline ESTABLISHED labs were drawn and sent and she was monitored closely with suicide precautions instituted. Patient's EKG was negative for any acute ischemia and no significant QT prolongation. Patient's lab evaluation was unremarkable and her vitals remained stable and her mental status remained stable during her observational period in the ED. We were able to reach the boyfriend at home and obtained a detailed list of all of her medication bottles including dose, tablets in bottle, and date they were filled. We were able to determine that she had not taken any of her beta blockers beyond her prescribed dose and had not taken any additional tricyclic antidepressants beyond her prescribed dose since they have been filled. The only medications are accounted for that were empty bottles were listed in the history of present illness. We did contact the poison center in regards to pills that were ingested and the recommendation was in agreement with our current management and observation. For approximately 4 hours since time of ingestion. During observation patient related a number of times to and from the bathroom with no difficulties and vital signs remained stable. Patient had no decline of her mental status. Ia came to evaluate the patient and at this time we are pending their recommendation and final disposition as they need to speak with the psychiatrist. Patient was signed out to Dr. Rowan of the rn shift mgr team to follow up on final disposition which is likely admission based on the patient's suicidal ideation with intentional overdose. Patient is medically clear.
[2017-01-15] MEDS ORDERED: 0.9 % Sodium Chloride 1,000 ML ONE (23:13)
[2017-01-15] MEDS ORDERED: 0.9 % Sodium Chloride 1,000 ML IVC ONE (23:16)
[2017-01-16] MEDS ORDERED: *HR* LORazepam 2 MG/ML VIAL IM PRN (01:03)
[2017-01-16] MEDS ORDERED: *HR* LORazepam 1 MG TABLET PO PRN (01:03)
[2017-01-16] MEDS ORDERED: MOM Conc 10 ML UD.LIQ PO PRN (01:03)
[2017-01-16] MEDS ORDERED: Haloperidol Lactate 5 MG/ML VIAL IM PRN (01:03)
[2017-01-16] MEDS ORDERED: Ibuprofen 400 MG TABLET PO PRN (01:03)
[2017-01-16] MEDS ORDERED: Mag Hydrox/Al Hydrox/Simeth 30 ML UDC PO PRN (01:03)
--- NOTE | 2017-01-16 09:56 | Psychiatry History & Physical ---
Date of Encounter: 01/16/17 Time of Encounter: 09:30 History of Present Illness Patient Stated Chief Complaint: Suicide attempt by overdose Medicare Admission Attestation: For traditional Medicare patients the provided hospital inpatient services are reasonable and necessary and in the case of services not specified as inpatient -only under 42 CFR 419.22 (n), that they are appropriately provided as inpatient services in accordance 42 CFR 412.3. For Critical Access Hospital the patient may reasonably be expected to be discharged or transferred to a hospital within 96 hours after admission to the Critical Access Hospital. Admitted From: Emergency Dept History of Present Illness: Ms. Garcia is a 56 year old female admitted from the emergency department for evaluation of suicide attempt with overdose on multiple medications. According to documents patient overdosed on hydroxyzine, Lamictal, trazodone. Amounts was unknown. There was a question whether patient's overdose on doxepin and the staff verified with her boyfriend confirmed that she is not currently taking doxepin. Patient has long history of psychiatric treatment for depression and attempted suicide by overdose in the past most recent was in July 2016. She is followed as outpatient by psychiatrist and counselor. She reports multiple stressors related to physical condition back pain and financial and family problems. She reports occasional insomnia, low motivation , minimal support from her family. Past Med Surg Social Fam HX - Past Medical History Medical history: GERD - Past Psychiatric History Psychiatric history: Reports: anxiety, depression, prior suicide attempt, previous psychiatric hospitalization Past psychiatric history details: Most recent hospitalization in July 2016 - Past Surgical History Surgical History: hysterectomy, other - Social History Smoking Status: Current every day smoker Smokeless Tobacco Status: No Alcohol use: none Drug use: marijuana Medications & Allergies Multivitamin [Flintstones] 1 tab PO DAILY 12/05/14 [History] Bupropion HCl [Wellbutrin Xl] 300 mg PO DAILY 14 Days tab.er.24h 08/05/16 [Rx] Estradiol [Estrace] 1 mg PO DAILY #30 tablet 08/05/16 [Rx] Gabapentin [Neurontin] 100 mg PO TID #90 capsule 08/05/16 [Rx] Propranolol [Inderal] 10 mg PO TID #90 tablet 08/05/16 [Rx] Cyclobenzaprine [Flexeril] 10 mg PO TID 09/23/16 [History] Polyethylene Glycol 3350 17 gm PO DAILY PRN 09/23/16 [History] lamoTRIgine [Lamictal] 200 mg PO BID 09/23/16 [History] ARIPiprazole [Abilify] 10 mg PO DAILY 01/16/17 [History] Doxepin HCl 50 mg PO DAILY 01/16/17 [History] HydrOXYzine Pamoate [Vistaril] 50 mg PO TID 01/16/17 [History] Linaclotide [Linzess] 145 mcg PO DAILY 01/16/17 [History] Trazodone HCl 100 mg PO HS 01/16/17 [History] 3 Allergy/AdvReac Type Severity Reaction Status Date / Time acetaminophen [From Tylenol] Allergy See Verified 09/03/16 15:38 Comments morphine Allergy Hypotension Verified 09/03/16 15:38 Penicillins Allergy See Verified 09/03/16 15:38 Comments Review of Systems Psychiatric: Reports: depression, anxiety, abnormal sleep pattern, suicidal ideation, hopelessness Mental Status Exam Patient orientation: Yes Person, Yes Time, Yes Place Level of alertness: Alert Patient appearance: Appropriate, Well Groomed Behavior: calm, cooperative, withdrawn Psychomotor activity: Slowed Eye contact: Maintains Eye Contact Mood description: Euthymic/stable, Depressed Affect description: congruent with mood, constricted, anxious Speech pattern: Normal rate, Normal rhythm, Normal tone Speech volume: Normal Thought process: Linear, Goal Oriented Thought content: Yes Suicidal ideation, No Homicidal ideation, No Overt delusions Perceptual disturbances: No Auditory hallucinations, No Visual hallucinations Attention span: Capable of Focused Attention Memory description: Grossly Intact Patient reliability: Reliable Historian Intelligence estimate: Average Judgment: Limited Insight: Partial Results - Vital Signs Vital signs: Temp Pulse Resp BP Pulse Ox 97.6 F 83 16 110/78 100 01/16/17 09:00 01/16/17 09:00 01/16/17 09:00 01/16/17 09:00 01/15/17 20:05 - Labs Labs: Laboratory Last Values WBC 9.1 K/mcL (4.3-11.1) 01/15/17 19:27 RBC 5.20 M/mcL (3.82-4.97) H 01/15/17 19:27 Hgb 15.2 g/dL (11.5-15.4) 01/15/17 19:27 Hct 45.9 % (35.3-44.9) H 01/15/17 19:27 MCV 88.3 fL (83.0-100.0) 01/15/17 19: MCH 29.2 pg (28.0-33.3) 01/15/17 19: MCHC 33.1 g/dL (31.6-35.5) 01/15/17 19:27 RDW 12.1 % (11.5-14.5) 01/15/17 19:27 Plt Count 277 K/mcL (140-400) 01/15/17 19:27 MPV 9.8 fL (9.4-12.4) 01/15/17 19: Immature Gran % 0.2 % (0-4) 01/15/17 19: Seg Neutrophils % 46.7 % 01/15/17 19: Lymphocytes % 43.4 % 01/15/17 19: Monocytes % 7.0 % 01/15/17 19: Eosinophils % 2.3 % 01/15/17 19: Basophils % 0.4 % 01/15/17 19:27 Neutrophils # 4.3 K/mcL (1.6-8.9) 01/15/17 19:27 Lymphocytes # 4.0 K/mcL (0.6-4.6) 01/15/17 19:27 Monocytes # 0.6 K/mcL (0.0-1.3) 01/15/17 19:27 Eosinophils # 0.2 K/mcL (0.0-0.6) 01/15/17 19: Basophils # 0.0 K/mcL (0.0-0.2) 01/15/17 19:27 Sodium 140 mEq/L (136-145) 01/15/17 19:27 Potassium 4.7 mEq/L (3.5-4.5) H 01/15/17 19:27 Chloride 108 mEq/L (98-109) 01/15/17 19:27 Carbon Dioxide 22 mEq/L (19-29) 01/15/17 19:27 BUN 18 mg/dL (7-20) 01/15/17 19:27 Creatinine 1.19 mg/dL (0.57-1.11) H 01/15/17 19:27 Est GFR ( Amer) 57 (> 60) L 01/15/17 19:27 Est GFR (Non-Af Amer) 47 (> 60) L 01/15/17 19:27 BUN/Creatinine Ratio 15 (6-26) 01/15/17 19:27 Glucose 77 mg/dL (70-99) 01/15/17 19:27 Calculated Osmolality 291 (280-300) 01/15/17 19:27 Calcium 9.5 mg/dL (8.6-10.8) 01/15/17 19:27 Urine Color Yellow (Yellow) 01/15/17 19:11 Urine Clarity Clear (Clear) 01/15/17 19:11 Urine pH 6.0 pH Units (5.0-8.0) 01/15/17 19:11 Ur Specific [place] 1.016 (1.010-1.025) 01/15/17 19:11 Urine Protein Negative mg/dL (Neg-Trace) 01/15/17 19:11 Urine Glucose (UA) Normal mg/dL (Normal) 01/15/17 19:11 Urine Ketones Negative mg/dL (Negative) 01/15/17 19:11 Urine Blood Negative (Negative) 01/15/17 19:11 Urine Nitrite Negative (Negative) 01/15/17 19:11 Urine Bilirubin Negative (Negative) 01/15/17 19:11 Urine Urobilinogen Normal mg/dL (Normal) 01/15/17 19:11 Ur Leukocyte Esterase Negative (Negative) 01/15/17 19:11 Urine Test Negative (Negative) 01/15/17 19:11 Salicylates < 5.0 mg/dL (15-30) L 01/15/17 19:27 Urine Opiates Screen Negative ng/mL (Cskclh=149) 01/15/17 19:11 Acetaminophen < 1.0 mcg/mL (10-30) L 01/15/17 19:27 Ur Barbiturates Screen Negative ng/mL (Wykudi=206) 01/15/17 19:11 Ur Phencyclidine Scrn Negative ng/mL (Cutoff=25) 01/15/17 19:11 Ur Amphetamines Screen Negative ng/mL (Ujvrmm=7120) 01/15/17 19:11 U Benzodiazepines Scrn Negative ng/mL (Phpvhi=666) 01/15/17 19:11 Urine Cocaine Screen Negative ng/mL (Cutoff= 300) 01/15/17 19:11 U Marijuana (THC) Screen Negative ng/mL (Cutoff = 50) 01/15/17 19:11 Ethyl Alcohol < 10 mg/dL (0-10) 01/15/17 19:27 Assessment and Plan (1) Suicide attempt by multiple drug overdose Current visit: Yes Status: Acute Plan: Admit inpatient for safety and stabilization, Close observation, Suicide Precautions per unit protocol, Encourage participation in unit milieu, Group Therapy, Monitor sleep, Monitor appetite Additional Plan: Review medication and restart as appropriate. Risks, benefits, side effects, alternatives discussed w/pt: Yes Patient agreeable to treatment: Yes Estimated Length of Stay (Days): 5 Qualifiers: Encounter type: subsequent encounter Qualified Code(s): T50.902D - Poisoning by unspecified drugs, medicaments and biological substances, intentional self-harm, subsequent encounter (2) Major depression, recurrent, chronic Current visit: Yes Status: Acute Risks, benefits, side effects, alternatives discussed w/pt: Yes Patient agreeable to treatment: Yes
[2017-01-16] MEDS: ARIPiprazole 10 MG TABLET PO SCH (10:58)
[2017-01-16] MEDS: BuPROPion XL (24 HR) 150 MG TABLET PO SCH (10:59)
[2017-01-16] MEDS: Gabapentin 100 MG CAPSULE PO SCH ×2 (15:48→21:11)
[2017-01-16] MEDS: lamoTRIgine 100 MG TABLET PO SCH (21:10)
[2017-01-16] MEDS: traZODone 50 MG TABLET PO PRN (21:19)
[2017-01-17] MEDS: lamoTRIgine 100 MG TABLET PO SCH ×2 (08:34→20:09)
[2017-01-17] MEDS: BuPROPion XL (24 HR) 150 MG TABLET PO SCH (08:34)
[2017-01-17] MEDS: ARIPiprazole 10 MG TABLET PO SCH (08:35)
[2017-01-17] MEDS: Gabapentin 100 MG CAPSULE PO SCH ×3 (08:35→20:09)
[2017-01-17] MEDS: Multivit/Ca/Min/Fe/FA 1 TAB TABLET PO SCH (08:35)
[2017-01-17] MEDS: (Linaclotide [Linzess] 145 MCG) PO SCH (08:36)
--- NOTE | 2017-01-17 13:49 | Psychiatry Progress Note ---
Date of Encounter: 01/17/17 Time of Encounter: 13:46 Subjective Interval history: Patient seen for follow-up. She reports feeling better, denies suicidal thoughts. She denies any problem with the medication. She is participating in groups and activities and encouraged to stay active at home and listed some activities that she will Continue to do. Her affect is bright and feeling more motivated. She is learning new coping skills. Review of Systems Psychiatric: Reports: depression, anxiety, abnormal sleep pattern, suicidal ideation, hopelessness Objective: Exam Patient orientation: Yes Person, Yes Time, Yes Place Level of alertness: Alert Patient appearance: Appropriate, Well Groomed Behavior: calm, cooperative Psychomotor activity: Normal Eye contact: Maintains Eye Contact Mood description: Euthymic/stable Affect description: congruent with mood, full range Speech pattern: Normal rate, Normal rhythm, Normal tone Speech volume: Normal Thought process: Linear, Goal Oriented Thought content: No Suicidal ideation, No Homicidal ideation, No Overt delusions Perceptual disturbances: No Auditory hallucinations, No Visual hallucinations Judgment: Fair Insight: Partial Results - Vital Signs Vital Signs: Temp Pulse Resp BP Pulse Ox 98.4 F 83 18 119/85 100 01/17/17 09:00 01/17/17 09:00 01/17/17 09:00 01/17/17 09:00 01/15/17 20:05 Assessment and Plan (1) Suicide attempt by multiple drug overdose Current visit: Yes Status: Acute Plan: Continue hospitalization, Close observation, Suicide Precautions per unit protocol, Encourage participation in unit milieu, Group Therapy, Monitor sleep, Monitor appetite Risks, benefits, side effects, alternatives discussed w/pt: Yes Patient agreeable to treatment: Yes Qualifiers: Encounter type: subsequent encounter Qualified Code(s): T50.902D - Poisoning by unspecified drugs, medicaments and biological substances, intentional self-harm, subsequent encounter (2) Major depression, recurrent, chronic Current visit: Yes Status: Acute Plan: Continue hospitalization, Close observation, Suicide Precautions per unit protocol, Encourage participation in unit milieu, Group Therapy, Monitor sleep, Monitor appetite Risks, benefits, side effects, alternatives discussed w/pt: Yes Patient agreeable to treatment: Yes Consult Discharge Plan - Plan Referrals: [facility] [Outside] (The above appointment is with Mali Wynn for counseling services.) [facility] [Outside] - 03/11/17 3:00 pm (The above appointment is with Marta Wiley for outpatient psychiatric assessment and medication management services. This is the first available appointment. You may contac the office regularly to check for cancellations that may allow you to be seen sooner.)
--- NOTE | 2017-01-17 16:30 | Electrocardiograph Report ---
[place] [id number] Test Date: 2017-01-15 Pat Name: Jimmy Garcia Department: 103 Room: 1A22 Gender: F Clerical Adjuster: : 1960 Requested By: Kamini Shepard Order Number: [id number] Reading MD: Archie Lora Measurements Intervals [place] Rate: 67 P: 58 OK: 180 QRS: -54 QRSD: 107 T: 5 QT: 434 QTc: 450 Interpretive Statements SINUS RHYTHM INCOMPLETE RIGHT BUNDLE BRANCH BLOCK LEFT ANTERIOR FASCICULAR BLOCK NONSPECIFIC T-WAVE ABNORMALITY Electronically Signed On 01-17-2017 16:28:19 EST by Archie Lora
[2017-01-17] MEDS: traZODone 50 MG TABLET PO PRN (20:09)
[2017-01-17] MEDS: hydrOXYzine pamoate 25 MG CAPSULE PO PRN (20:14)
[2017-01-18] MEDS: lamoTRIgine 100 MG TABLET PO SCH ×2 (09:41→20:41)
[2017-01-18] MEDS: ARIPiprazole 10 MG TABLET PO SCH (09:41)
[2017-01-18] MEDS: Multivit/Ca/Min/Fe/FA 1 TAB TABLET PO SCH (09:41)
[2017-01-18] MEDS: BuPROPion XL (24 HR) 150 MG TABLET PO SCH (09:41)
[2017-01-18] MEDS: Gabapentin 100 MG CAPSULE PO SCH ×3 (09:41→20:41)
[2017-01-18] MEDS: (Linaclotide [Linzess] 145 MCG) PO SCH (09:42)
--- NOTE | 2017-01-18 11:33 | Psychiatry Progress Note ---
Date of Encounter: 01/18/17 Time of Encounter: 11:30 Subjective Interval history: Patient is seen for follow-up. She reports improved sleep. She is anxious and worried because her boyfriend did not visit or call. She is participating in activities and interacting with other patients. She denies any suicidal thoughts. She is showing anxious and depressed mood. She was advised to use when necessary medication by asking the nursing staff if she needed to. She denies any suicidal ideation. Review of Systems Psychiatric: Reports: depression, anxiety, abnormal sleep pattern, suicidal ideation, hopelessness Objective: Exam Patient orientation: Yes Person, Yes Time, Yes Place Level of alertness: Alert Patient appearance: Appropriate, Well Groomed, Obese Behavior: calm, cooperative, anxious, tearful Psychomotor activity: Normal Eye contact: Maintains Eye Contact Mood description: Euthymic/stable, Anxious Affect description: congruent with mood, full range Speech pattern: Normal rate, Normal rhythm, Normal tone Speech volume: Normal Thought process: Linear, Goal Oriented Thought content: No Suicidal ideation, No Homicidal ideation, No Overt delusions Perceptual disturbances: No Auditory hallucinations, No Visual hallucinations Judgment: Fair Insight: Partial Results - Vital Signs Vital Signs: Temp Pulse Resp BP Pulse Ox 97.4 F L 68 16 134/94 100 01/18/17 09:00 01/18/17 09:00 01/18/17 09:00 01/18/17 09:00 01/15/17 20:05 Assessment and Plan (1) Suicide attempt by multiple drug overdose Current visit: Yes Status: Acute Plan: Continue hospitalization, Close observation, Suicide Precautions per unit protocol, Encourage participation in unit milieu, Group Therapy, Monitor sleep, Monitor appetite Risks, benefits, side effects, alternatives discussed w/pt: Yes Patient agreeable to treatment: Yes Qualifiers: Encounter type: subsequent encounter Qualified Code(s): T50.902D - Poisoning by unspecified drugs, medicaments and biological substances, intentional self-harm, subsequent encounter (2) Major depression, recurrent, chronic Current visit: Yes Status: Acute Plan: Continue hospitalization, Close observation, Suicide Precautions per unit protocol, Encourage participation in unit milieu, Group Therapy, Monitor sleep, Monitor appetite Risks, benefits, side effects, alternatives discussed w/pt: Yes Patient agreeable to treatment: Yes Consult Discharge Plan - Plan Referrals: [facility] [Outside] (The above appointment is with Mali Wynn for counseling services.) [facility] [employer] [facility] [Outside] - 03/11/17 3:00 pm (The above appointment is with Marta Wiley for outpatient psychiatric assessment and medication management services. This is the first available appointment. You may contac the office regularly to check for cancellations that may allow you to be seen sooner.)
[2017-01-18 17:26] LABS: Amphetamines NEGATIVE ng/mL (Cutoff 30); Barbiturates NEGATIVE ng/mL (Cutoff 75); Benzodiazepines NEGATIVE ng/mL (Cutoff 75); Cocaine NEGATIVE ng/mL (Cutoff 30); Methadone NEGATIVE ng/mL (Cutoff 40); Methamphetamines NEGATIVE ng/mL (Cutoff 30); Opiates NEGATIVE ng/mL (Cutoff 30); Phencyclidine NEGATIVE ng/mL (Cutoff 15)
[2017-01-18] MEDS: hydrOXYzine pamoate 25 MG CAPSULE PO PRN (20:41)
[2017-01-18] MEDS: traZODone 50 MG TABLET PO PRN (20:41)
[2017-01-19] MEDS: BuPROPion XL (24 HR) 150 MG TABLET PO SCH (09:04)
[2017-01-19] MEDS: Multivit/Ca/Min/Fe/FA 1 TAB TABLET PO SCH (09:04)
[2017-01-19] MEDS: lamoTRIgine 100 MG TABLET PO SCH ×2 (09:04→20:11)
[2017-01-19] MEDS: Gabapentin 100 MG CAPSULE PO SCH ×3 (09:04→20:11)
[2017-01-19] MEDS: ARIPiprazole 10 MG TABLET PO SCH (09:05)
[2017-01-19] MEDS: (Linaclotide [Linzess] 145 MCG) PO SCH (09:11)
--- NOTE | 2017-01-19 13:32 | Psychiatry Progress Note ---
Date of Encounter: 01/19/17 Time of Encounter: 13:28 Subjective Interval history: Patient is seen for follow-up. She is less anxious about her boyfriend, he called her yesterday and assured her that he is ok. She reports sleep is better , occasional back pain, she denies suicidal ideation. She is compliant with medication and participate in activities. Review of Systems Psychiatric: Reports: depression, anxiety, abnormal sleep pattern, suicidal ideation, hopelessness Objective: Exam Patient orientation: Yes Person, Yes Time, Yes Place Level of alertness: Alert Patient appearance: Appropriate, Well Groomed Behavior: calm, cooperative Psychomotor activity: Slowed Eye contact: Maintains Eye Contact Mood description: Euthymic/stable Affect description: congruent with mood, full range Speech pattern: Normal rate, Normal rhythm, Normal tone Speech volume: Normal Thought process: Linear, Goal Oriented Thought content: No Suicidal ideation, No Homicidal ideation, No Overt delusions Perceptual disturbances: No Auditory hallucinations, No Visual hallucinations Judgment: Fair Insight: Partial Results - Vital Signs Vital Signs: Temp Pulse Resp BP Pulse Ox 98.5 F 70 14 119/89 100 01/19/17 09:00 01/19/17 09:00 01/19/17 09:00 01/19/17 09:00 01/15/17 20:05 Assessment and Plan (1) Suicide attempt by multiple drug overdose Current visit: Yes Status: Acute Plan: Continue hospitalization, Close observation, Suicide Precautions per unit protocol, Encourage participation in unit milieu, Group Therapy, Monitor sleep, Monitor appetite Risks, benefits, side effects, alternatives discussed w/pt: Yes Patient agreeable to treatment: Yes Qualifiers: Encounter type: subsequent encounter Qualified Code(s): T50.902D - Poisoning by unspecified drugs, medicaments and biological substances, intentional self-harm, subsequent encounter (2) Major depression, recurrent, chronic Current visit: Yes Status: Acute Plan: Continue hospitalization, Close observation, Suicide Precautions per unit protocol, Encourage participation in unit milieu, Group Therapy, Monitor sleep, Monitor appetite Risks, benefits, side effects, alternatives discussed w/pt: Yes Patient agreeable to treatment: Yes Consult Discharge Plan - Plan Referrals: [facility] [Outside] (The above appointment is with Mali Wynn for counseling services.) [facility] [Outside] - 03/11/17 3:00 pm (The above appointment is with Marta Wiley for outpatient psychiatric assessment and medication management services. This is the first available appointment. You may contac the office regularly to check for cancellations that may allow you to be seen sooner.)
[2017-01-19] MEDS: traZODone 50 MG TABLET PO PRN (20:11)
[2017-01-19] MEDS: hydrOXYzine pamoate 25 MG CAPSULE PO PRN (20:11)
[2017-01-20] MEDS: Multivit/Ca/Min/Fe/FA 1 TAB TABLET PO SCH (08:14)
[2017-01-20] MEDS: lamoTRIgine 100 MG TABLET PO SCH (08:14)
[2017-01-20] MEDS: ARIPiprazole 10 MG TABLET PO SCH (08:14)
[2017-01-20] MEDS: (Linaclotide [Linzess] 145 MCG) PO SCH (08:15)
[2017-01-20] MEDS: BuPROPion XL (24 HR) 150 MG TABLET PO SCH (08:15)
[2017-01-20] MEDS: Gabapentin 100 MG CAPSULE PO SCH (08:15)
--- NOTE | 2017-01-20 09:38 | Discharge Summary ---
Date of Encounter: 01/20/17 Time of Encounter: 09:25 Diagnosis - Discharge Diagnosis (1) Drug overdose Status: Resolved Comments: patient is not suicidal at present. she has support from her boy friend. Qualifiers: Encounter type: subsequent encounter Injury intent: intentional self-harm Qualified Code(s): T50.902D - Poisoning by unspecified drugs, medicaments and biological substances, intentional self-harm, subsequent encounter (2) Depression with suicidal ideation Status: Chronic Comments: patient is not depress at present , she is at baseline. (3) PTSD (post-traumatic stress disorder) Status: Chronic Comments: patient at present stable Medications - Discharge Medications Multivitamin [Flintstones] 1 tab PO DAILY 12/05/14 [History] Bupropion HCl [Wellbutrin Xl] 300 mg PO DAILY 14 Days tab.er.24h 08/05/16 [Rx] Estradiol [Estrace] 1 mg PO DAILY #30 tablet 08/05/16 [Rx] Gabapentin [Neurontin] 100 mg PO TID #90 capsule 08/05/16 [Rx] Propranolol [Inderal] 10 mg PO TID #90 tablet 08/05/16 [Rx] Cyclobenzaprine [Flexeril] 10 mg PO TID 09/23/16 [History] Polyethylene Glycol 3350 17 gm PO DAILY PRN 09/23/16 [History] lamoTRIgine [Lamictal] 200 mg PO BID 09/23/16 [History] ARIPiprazole [Abilify] 10 mg PO DAILY 01/16/17 [History] HydrOXYzine Pamoate [Vistaril] 50 mg PO TID 01/16/17 [History] Linaclotide [Linzess] 145 mcg PO DAILY 01/16/17 [History] ARIPiprazole [Abilify] 10 mg PO DAILY tablet 01/20/17 [Rx] Dicyclomine [Bentyl] 20 mg PO Q6H PRN capsule 01/20/17 [Rx] traZODone [TraZODone] 50 mg PO HS PRN tablet 01/20/17 [Rx] 3 Allergy/AdvReac Type Severity Reaction Status Date / Time acetaminophen [From Tylenol] Allergy See Verified 09/03/16 15:38 Comments morphine Allergy Hypotension Verified 09/03/16 15:38 Penicillins Allergy See Verified 09/03/16 15:38 Comments Provider Date of admission: 01/16/17 01:00 Primary care physician: PCP NONE Consults: 01/16/17 19:58 Consult to Pastoral Services [CONS] Routine Comment: Assessment and Plan - Patient/Caregiver Discharge Instructions Activity: resume usual activities as tolerated Diet: regular diet - Follow up Plan Follow up with: [facility] [Outside] (Your counselor, Mali Wynn, will contact you directly to schedule your next appointment. for counseling services. ) [facility] [employer] [facility] [Outside] - 03/11/17 3:00 pm (The above appointment is with Marta Wiley for outpatient psychiatric assessment and medication management services. This is the first available appointment. You may contac the office regularly to check for cancellations that may allow you to be seen sooner.) Functional capacity at discharge: independent ambulation Overall status at discharge: Stable Disposition: Home, Self-Care Hospital Course Hospital course: Ms. Garcia is a 56 year old female who is seen today first time, she was admitted to in patient for depression and OD on her medications. Case d/w treatment team and chart reviewed, she is at present stable , no suicidal ideation and depression is much improved. she has been compliant with her medications and unit milieu. 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 Patient at present is pleasant , talkative and no suicidal/homicidal thoughts. she has insight and states will be compliant with medications. She has out patient psychiatrist and therapist . As per her she has all refills waiting to be filled at [facility] therefore no meds given. Time spent discussing smoking cessation with patient: 3 to 10 minutes Does patient wish to continue nicotine replacement upon disc: No (wants to quit on her own , as per her patches do not work , education given) - Time Spent with Patient Total time spent providing and/or coordinating discharge services: Less than 30 minutes (patient not in danger to self/others.) Quality - Multiple Antipsychotics Patient discharged on 2 or more antipsychotic medications: No Procedures - Procedures Procedures: Medication Management, Crisis Stabilization, Supportive Therapy, Group Therapy, Psychoeducational Therapy Mental Status Exam - Mental Status Exam Patient orientation: Yes Person, Yes Time, Yes Place Level of alertness: Alert Patient appearance: Appropriate Behavior: calm, cooperative Psychomotor activity: Normal Eye contact: Maintains Eye Contact Mood description: Euthymic/stable Affect description: congruent with mood Speech pattern: Normal rate, Normal rhythm, Normal tone Speech Volume: Normal Thought process: Intact Thought Content: Yes Intact Judgment: Good Insight: Full
[2017-01-20 09:51] VITALS: BP 123/88
== END 2017-01-20 10:35 | disposition home or self-care (01) | DRG 817 ==
LOC: EMEROO 18:40 → 1ANU 01-16 01:00
PROVIDERS: ADMIT Psychiatry & Neurology Psychiatry; ATTEND Psychiatry & Neurology Psychiatry

== ENCOUNTER 2017-10-30 06:54 | Observation (INO) ==
[2017-10-30] MEDS ORDERED: *HR* FentaNYL (PF) 100 MCG/2 ML VIAL IVP ONE ×2 (07:07→09:30)
[2017-10-30] MEDS ORDERED: 0.9 % Sodium Chloride 1,000 ML IVC ONE ×2 (07:07→09:29)
[2017-10-30] MEDS ORDERED: Ondansetron 4 MG/2 ML VIAL IVP ONE (07:07)
[2017-10-30 07:47] LABS: Bilirubin,Urine Negative (Negative); Blood,Urine Negative (Negative); Clarity,Urine Turbid (Clear); Color,Urine Yellow (Yellow); Glucose,Urine (UA) Normal (Normal); Ketones,Urine Negative (Negative); Leukocyte Esterase,Urine Negative (Negative); Nitrite,Urine Negative (Negative); Protein,Urine Negative (Neg-Trace); Specific Gravity,Urine 1.015 (1.010-1.025); Urobilinogen,Urine Normal (Normal)
[2017-10-30 07:49] LABS: Bacteria,Urine None Seen per hpf (None-Few); Hyaline Casts,Urine None Seen per lpf (None-Few); Squamous Epithelial Cell,Urine Many per lpf (None-Few); WBC,Urine 0-3 per hpf (0-3)
[2017-10-30 07:52] LABS: Basophils % 0.3 %; Eosinophils # 0.1 K/mcL (0.0-0.6); Eosinophils % 1.1 %; Hematocrit 36.2 % (35.3-44.9); Hemoglobin 12.3 g/dL (11.5-15.4); Immature Granulocytes % 0.5 % (0-4); Lymphocytes # 2.6 K/mcL (0.6-4.6); Lymphocytes % 20.3 %; Mean Corpuscular Hemoglobin 29.3 pg (28.0-33.3); Mean Corpuscular Volume 86.2 fL (83.0-100.0); Mean Platelet Volume 10.3 fL (9.4-12.4); Monocytes # 0.8 K/mcL (0.0-1.3); Monocytes % 5.9 %; Neutrophils # 9.3 K/mcL (1.6-8.9); Platelet Count 296 K/mcL (140-400); Red Cell Distribution Width 12.6 % (11.5-14.5); Segmented Neutrophils % 71.9 %
--- NOTE | 2017-10-30 08:17 | Emergency Department Note ---
Disposition Clinical Impression: Intractable left upper quadrant abdominal pain Disposition: Admitted As Inpatient Condition: Fair Abdominal Pain HPI - General Stated Complaint: abd pain Time Seen by Provider: 10/30/17 06:58 Source: patient, EMS Mode of arrival: EMS Limitations: no limitations Nursing Notes Reviewed: Yes Vital Signs Reviewed: Yes - History of Present Illness HPI Narrative: Patient presents to ED via EMS for evaluation of abdominal pain. Is been present for a little over 10 days and worsening. She has had two visits to the ER for this pain and one visit to her primary care provider's office. She states that her primary care provider told her to return to the ER if her pain continued or worsened as she was concerned for pancreatitis. Patient describes nausea and several episodes of nonbloody, nonbilious emesis. The pain sometimes radiates into the chest. However, she denies discrete chest pressure or pain. She has had no trouble breathing shortness of breath or dyspnea on exertion. No peripheral edema, cough or hemoptysis. She denies diarrhea or constipation, melena or hematochezia. She has had no recent medication changes and does not drink alcohol. She has history of chronic kidney disease, so she does not take NSAIDs. Pt Subjective Complaint: abdominal pain Onset (ago): week(s) Consistency: constant, Worsening Location: LUQ, epigastric Pain Severity: severe Pain Scale: 10 Quality: stabbing, sharp Radiation: LUQ, back, chest Migration to: no migration Improves with: nothing Worsens with: nothing Context: other (patient was seen here on the 10th [address] showed ill defined area possibly duodenitis or small area of pancreatitis.) Associated symptoms: Reports: nausea, vomiting. Denies: diarrhea, fever, chills , constipation, dysuria, hematemesis, hematochezia, melena, hematuria, anorexia , syncope Treatments prior to arrival: none - Related Data Home Medications Medication Instructions Recorded Confirmed Multivitamin [Flintstones] 1 tab PO DAILY 12/05/14 01/16/17 Cyclobenzaprine [Flexeril] 10 mg PO TID 09/23/16 01/16/17 Polyethylene Glycol 3350 17 gm PO DAILY PRN 09/23/16 01/16/17 ARIPiprazole [Abilify] 10 mg PO DAILY 01/16/17 01/16/17 HydrOXYzine Pamoate [Vistaril] 50 mg PO TID 01/16/17 01/16/17 Linaclotide [Linzess] 145 mcg PO DAILY 01/16/17 01/16/17 traZODone [TraZODone] 200 mg PO HS PRN 10/30/17 10/30/17 Previous Rx's Medication Instructions Recorded Bupropion HCl [Wellbutrin Xl] 300 mg PO DAILY 14 Days tab.er.24h 08/05/16 Estradiol [Estrace] 1 mg PO DAILY #30 tablet 08/05/16 Gabapentin [Neurontin] 100 mg PO TID #90 capsule 08/05/16 Propranolol [Inderal] 10 mg PO TID #90 tablet 08/05/16 Allergies Allergy/AdvReac Type Severity Reaction Status Date / Time acetaminophen [From Tylenol] Allergy See Verified 10/30/17 09:39 Comments morphine Allergy Hypotension Verified 10/30/17 09:39 Penicillins Allergy See Verified 10/30/17 09:39 Comments All systems ED: reviewed and negative except as stated. Review of Systems: As Per HPI Constitutional: Denies: fever, chills, weakness Cardiovascular: Denies: chest pain, palpitations, dyspnea on exertion, orthopnea , edema, syncope Respiratory: Denies: cough, dyspnea, wheezes Gastrointestinal: Reports: as per HPI, abdominal pain, nausea, vomiting. Denies : diarrhea, constipation, hematemesis, melena, hematochezia Genitourinary: Denies: dysuria, frequency, hematuria Musculoskeletal: Denies: joint swelling, arthralgia Neurological: Denies: headache, weakness, vertigo Hematological/Lymphatic: Denies: easy bleeding, easy bruising, lymphadenopathy Abdominal Pain PMH - Past Medical History Medical history: Reports: GERD, renal disease Female Surgical History: Reports: herniorrhaphy, hysterectomy Psychiatric history: Reports: bipolar, depression, prior suicide attempt - Social History Smoking status: Current every day smoker Alcohol use: Reports: none Drug use: Reports: none Physical Exam - General Limitations: no limitations General appearance: alert, in no apparent distress - Head Head exam: atraumatic, normocephalic, normal inspection - Eye Eye exam: Present: normal appearance, PERRL. Absent: scleral icterus, conjunctival injection, periorbital swelling - ENT ENT exam: mucous membranes moist - Neck Neck exam: Present: normal inspection, full ROM, trachea midline. Absent: meningismus - Chest Chest inspection: Present: normal inspection, symmetric chest wall rise - Respiratory Respiratory exam: Present: normal lung sounds bilaterally. Absent: respiratory distress - Back Exam Back exam: Present: normal inspection. Absent: CVA tenderness (R), CVA tenderness (L) - Neurological Exam Neurological exam: Present: alert, oriented X3, CN II-XII intact, normal gait - Psychiatric Psychiatric exam: Present: normal affect, normal mood - Skin Skin exam: Present: warm, dry, intact, normal color Course Course Narrative: Patient returns to the ER for evaluation of epigastric and left upper quadrant abdominal pain. This is her third visit for the same. She was seen on the of this month and had a CAT scan done that showed a questionable area of inflammation around the duodenum or pancreas. Patient states complains of pain in the epigastrium that radiates through to the back along with nausea and vomiting. She does not have a history of duodenal ulcers and does not use NSAIDs. She does not drink alcohol and has had no new medications or change in medications. She does not have significant hyperlipidemia to her knowledge. She does still have her gallbladder but has no elevation in bilirubin or transaminases and no tenderness in the right upper quadrant. Her pain is only mildly relieved with high dose of fentanyl. Nausea is controlled with Zofran. Additional meds and PPI ordered as well as fluids. Patient will be admitted Vital Signs Temperature 98.1 F 10/30/17 06:59 Pulse Rate 86 10/30/17 06:59 Respiratory Rate 22 10/30/17 06:59 Blood Pressure 159/99 10/30/17 06:59 O2 Sat by Pulse Oximetry 98 10/30/17 06:59 Temperature 98.1 F 10/30/17 06:59 Pulse Rate 83 10/30/17 07:37 Respiratory Rate 16 10/30/17 07:37 Blood Pressure 159/99 10/30/17 07:37 O2 Sat by Pulse Oximetry 100 10/30/17 07:37 Oxygen Delivery Oxygen Delivery Room Air Abdominal Pain - Medical Records Medical records reviewed: Yes I reviewed the patient's medical records. - Lab Data Lab results reviewed: Yes I reviewed the patient's lab results. Lab results narrative: Laboratory Last Values WBC 12.9 K/mcL (4.3-11.1) H 10/30/17 07:19 RBC 4.20 M/mcL (3.82-4.97) 10/30/17 07:19 Hgb 12.3 g/dL (11.5-15.4) 10/30/17 07:19 Hct 36.2 % (35.3-44.9) 10/30/17 07:19 MCV 86.2 fL (83.0-100.0) 10/30/17 07:19 MCH 29.3 pg (28.0-33.3) 10/30/17 07:19 MCHC 34.0 g/dL (31.6-35.5) 10/30/17 07:19 RDW 12.6 % (11.5-14.5) 10/30/17 07:19 Plt Count 296 K/mcL (140-400) 10/30/17 07:19 MPV 10.3 fL (9.4-12.4) 10/30/17 07:19 Immature Gran % 0.5 % (0-4) 10/30/17 07:19 Seg Neutrophils % 71.9 % 10/30/17 07:19 Lymphocytes % 20.3 % 10/30/17 07:19 Monocytes % 5.9 % 10/30/17 07:19 Eosinophils % 1.1 % 10/30/17 07:19 Basophils % 0.3 % 10/30/17 07:19 Neutrophils # 9.3 K/mcL (1.6-8.9) H 10/30/17 07:19 Lymphocytes # 2.6 K/mcL (0.6-4.6) 10/30/17 07:19 Monocytes # 0.8 K/mcL (0.0-1.3) 10/30/17 07:19 Eosinophils # 0.1 K/mcL (0.0-0.6) 10/30/17 07:19 Basophils # 0.0 K/mcL (0.0-0.2) 10/30/17 07:19 Sodium 137 mEq/L (136-145) 10/30/17 08:01 Potassium 4.1 mEq/L (3.5-5.1) 10/30/17 08:01 Chloride 109 mEq/L (98-107) H 10/30/17 08:01 Carbon Dioxide 21 mEq/L (23-29) L 10/30/17 08:01 BUN 19 mg/dL (6-20) 10/30/17 08:01 Creatinine 1.01 mg/dL (0.60-1.20) 10/30/17 08:01 Est GFR ( Amer) > 60 (> 60) 10/30/17 08:01 Est GFR (Non-Af Amer) 57 (> 60) L 10/30/17 08:01 BUN/Creatinine Ratio 19 (6-26) 10/30/17 08:01 Glucose 122 mg/dL (70-105) H 10/30/17 08:01 Calculated Osmolality 288 (280-300) 10/30/17 08:01 Lactic Acid 1.1 mmol/L (0.5-2.2) 10/30/17 08:01 Calcium 9.3 mg/dL (8.6-10.3) 10/30/17 08:01 Total Bilirubin 0.2 mg/dL (0.3-1.0) L 10/30/17 08:01 Direct Bilirubin Cancelled 10/30/17 07:19 Indirect Bilirubin Cancelled 10/30/17 07:19 AST 15 Units/L (13-39) 10/30/17 08:01 ALT 17 Units/L (7-52) 10/30/17 08:01 Alkaline Phosphatase 81 Units/L (34-104) 10/30/17 08:01 Troponin I < 0.03 ng/mL (< 0.04) 10/30/17 07:19 Serum Total Protein 6.4 g/dL (6.4-8.9) 10/30/17 08:01 Albumin 3.7 g/dL (3.5-5.7) 10/30/17 08:01 Globulin 2.7 g/dL (2.4-3.5) 10/30/17 08:01 Albumin/Globulin Ratio 1.4 (1.1-2.2) 10/30/17 08:01 Lipase 18 Units/L (11-82) 10/30/17 08:01 Urine Color Yellow (Yellow) 10/30/17 07:32 Urine Clarity Turbid (Clear) A 10/30/17 07:32 Urine pH 7.0 pH Units (5.0-8.0) 10/30/17 07:32 Ur Specific [place] 1.015 (1.010-1.025) 10/30/17 07:32 Urine Protein Negative mg/dL (Neg-Trace) 10/30/17 07:32 Urine Glucose (UA) Normal mg/dL (Normal) 10/30/17 07:32 Urine Ketones Negative mg/dL (Negative) 10/30/17 07:32 Urine Blood Negative (Negative) 10/30/17 07:32 Urine Nitrite Negative (Negative) 10/30/17 07:32 Urine Bilirubin Negative (Negative) 10/30/17 07:32 Urine Urobilinogen Normal mg/dL (Normal) 10/30/17 07:32 Ur Leukocyte Esterase Negative (Negative) 10/30/17 07:32 Urine Microscopic RBC 3-5 per hpf (0-3) H 10/30/17 07:32 Urine Microscopic WBC 0-3 per hpf (0-3) 10/30/17 07:32 Ur Squamous Epith Cells Many per lpf (None-Few) H 10/30/17 07:32 Urine Bacteria None Seen per hpf (None-Few) 10/30/17 07:32 Hyaline Casts None Seen per lpf (None-Few) 10/30/17 07:32 Ur Culture Indicated? NO (NO) 10/30/17 07:32 Specimen Rejected Hemolyzed 10/30/17 07:19 Result diagrams: 10/30/17 07:19 Lab Results 10/30/17 10/30/17 10/30/17 Range/Units 07:19 07:19 07:32 WBC 12.9 H (4.3-11.1) K/mcL RBC 4.20 (3.82-4.97) M/mcL Hgb 12.3 (11.5-15.4) g/dL Hct 36.2 (35.3-44.9) % MCV 86.2 (83.0-100.0) fL MCH 29.3 (28.0-33.3) pg MCHC 34.0 (31.6-35.5) g/dL RDW 12.6 (11.5-14.5) % Plt Count 296 (140-400) K/mcL MPV 10.3 (9.4-12.4) fL Immature Gran % 0.5 (0-4) % Seg Neutrophils % 71.9 % Lymphocytes % 20.3 % Monocytes % 5.9 % Eosinophils % 1.1 % Basophils % 0.3 % Neutrophils # 9.3 H (1.6-8.9) K/mcL Lymphocytes # 2.6 (0.6-4.6) K/mcL Monocytes # 0.8 (0.0-1.3) K/mcL Eosinophils # 0.1 (0.0-0.6) K/mcL Basophils # 0.0 (0.0-0.2) K/mcL Troponin I < 0.03 (< 0.04) ng/mL Urine Color Yellow (Yellow) Urine Clarity Turbid A (Clear) Urine pH 7.0 (5.0-8.0) pH Units Ur Specific [place] 1.015 (1.010-1.025) Urine Protein Negative (Neg-Trace) mg/dL Urine Glucose (UA) Normal (Normal) mg/dL Urine Ketones Negative (Negative) mg/dL Urine Blood Negative (Negative) Urine Nitrite Negative (Negative) Urine Bilirubin Negative (Negative) Urine Urobilinogen Normal (Normal) mg/dL Ur Leukocyte Esterase Negative (Negative) Urine Microscopic RBC 3-5 H (0-3) per hpf Urine Microscopic WBC 0-3 (0-3) per hpf Ur Squamous Epith Cells Many H (None-Few) per lpf Urine Bacteria None Seen (None-Few) per hpf Hyaline Casts None Seen (None-Few) per lpf Ur Culture Indicated? NO (NO)
[2017-10-30 08:47] LABS: Alanine Aminotransferase 17 Units/L (7-52); Albumin 3.7 g/dL (3.5-5.7); Albumin/Globulin Ratio 1.4 (1.1-2.2); Alkaline Phosphatase 81 Units/L (34-104); Aspartate Amino Transferase 15 Units/L (13-39); BUN/Creatinine Ratio 19 (6-26); Bilirubin,Total 0.2 mg/dL (0.3-1.0); Blood Urea Nitrogen 19 mg/dL (6-20); Calcium 9.3 mg/dL (8.6-10.3); Carbon Dioxide 21 mEq/L (23-29); Chloride 109 mEq/L (98-107); Globulin 2.7 g/dL (2.4-3.5); Glucose 122 mg/dL (70-105); Osmolality,Calculated 288 (280-300); Potassium 4.1 mEq/L (3.5-5.1); Sodium 137 mEq/L (136-145); Total Protein 6.4 g/dL (6.4-8.9); eGFR For Non-African Americans 57 (> 60)
[2017-10-30 08:58] LABS: Lipase 18 Units/L (11-82)
[2017-10-30] MEDS ORDERED: Pantoprazole 40 MG VIAL IVP ONE (09:34)
--- NOTE | 2017-10-30 15:34 | Electrocardiograph Report ---
[address] [address] Test Date: 2017-10-30 Pat Name: Jimmy Garcia Department: EXAM2 Room: 3A Gender: F Rice Drier: : 1960 Requested By: Gillian Pérez Order Number: [id number] Reading MD: Yelitza Schofield Measurements Intervals [place] Rate: 73 P: 65 GA: 151 QRS: -49 QRSD: 111 T: -25 QT: 389 QTc: 429 Interpretive Statements Sinus rhythm Left anterior fascicular block Borderline T abnormalities, inferior leads Nonspecific ST abnormalities Electronically Signed On 10-30-2017 15:32:34 EDT by Yelitza Schofield
[2017-10-30] MEDS ORDERED: traZODone 50 MG TABLET PO PRN (17:33)
--- NOTE | 2017-10-30 17:36 | Internal Med Progress Note ---
Hospitalist Progress Note - Encounter Date of Encounter: 10/30/17 Time of Encounter: 17:00 - Subjective Interval History: Mrs. Foster is a 57-year-old female that was admitted from the emergency room for intractable left upper quadrant abdominal pain. Had previous 2 visits to the emergency room and her primary care provider's office she states that she was seen in primary care yesterday afternoon and she was concerned for a pancreatitis and was advised to come to the emergency room. Patient reported bouts of nausea and vomiting left upper quadrant severe pain, she rated the pain at the time of admission is a 10 on pain scale of 10 with 10 being the worst she states that it started about 6 AM on the date of admission and onset was in the midepigastric area radiating to the left upper quad and then to the left back and shoulder. Today she denies any chest pain shortness of breath diarrhea or constipation nausea or vomiting. Review of history she does have a history of chronic kidney disease denies use of any NSAIDs and does not drink alcohol, she did not recall any new medication changes. Home medications include Ability, Estradiol, Gabapentin, Buspropion , Inderal, and Trazodone, for Chronic Anxiety, PTSD, Biploar , and depression. EKG in ED was positive for Left anterior fascicular block, Borderline T abnormalities , and nonspecific ST abnormalities . CT scan of Abdomin was reviewed and positive for: Hiatal hernia. Subtle ill definition along the margins of the duodenum. This may represent artifact however a tiny focal area of duodenitis or even a small focal segment of pancreatitis cannot excluded. Tiny renal cyst on the left. Diverticulosis throughout the descending colon and the sigmoid colon. There are no findings diagnostic of diverticulitis. Will place on telemetry, - Exam Vitals: Temp Pulse Resp BP Pulse Ox 98.5 F 81 15 126/76 95 10/30/17 15:35 10/30/17 15:35 10/30/17 15:35 10/30/17 15:35 10/30/17 15:35 Exam: stable with b/p 126/76, negative for hypoxemia , or acute distress - Assessment and Plan (1) Abnormal ECG Current Visit: Yes Status: Acute Assessment and Plan: MARIYA abnormal in ED with non-specific ST changes , left anterior fascicular block , Will place on telemetry, consult cardiology and have Stress test, with Echocardiagram completed. (2) Intractable left upper quadrant abdominal pain Current Visit: Yes Status: Acute Assessment and Plan: CT scan from 10/27/2017 was reviewed an positive for : Hiatal hernia. Subtle ill definition along the margins of the duodenum. This may represent artifact however a tiny focal area of duodenitis or even a small focal segment of pancreatitis cannot excluded. Tiny renal cyst on the left. Diverticulosis throughout the descending colon and the sigmoid colon. There are no findings diagnostic of diverticulitis. Will consult Gastroenterology , remain NPO (3) Major depression, recurrent, chronic Current Visit: Yes Status: Acute Assessment and Plan: Will continue home medications (4) CKD (chronic kidney disease) stage 3, GFR 30-59 ml/min Current Visit: No Status: Chronic (5) DVT prophylaxis Current Visit: No Status: Acute Assessment and Plan: per protochol - Summary of Assessment and Plan Summary of Assessment and Plan: Mrs Garcia is a 57-year-old female patient who was admitted to observation for questionable pancreatitis through the emergency room. CT scan as outpatient on 10/27/2017 show positive for hiatal hernia ill definition along margins of the basil a small focal segment of the pancreas and pancreatitis cannot be excluded tunnel renal cyst in the left kidney diverticulosis throughout the descending and sigmoid colon. Patient was seen per her primary care on 2017 and she was advised to go to the emergency room for possible pancreatitis. Last laboratory results were reviewed and shows white blood cells elevated slightly at 12.9, BUN is 19 and creatinine is 1.01 and GFR is slightly low at 57. Glucose was 122 total bilirubin was slightly low at 0.2. EKG that was completed in the emergency room before his left shoulder and upper left chest pain was positive for nonspecific ST wave changes, we will proceed with cardiology consult and serial troponins. We will also order a stress test and 2-D echo. Patient is a full CODE STATUS and she will be admitted to 3 a observation unit and also placed on telemetry - Time Spent with Patient Total time spent is greater than 50% in coordination of care (as documented) at patient's floor/unit and/or counseling patient: less than 15 minutes Plan of Care Discussed with: patient Internal Medicine: Result - Labs CBC & Chem 7: 10/30/17 07:19 10/30/17 08:01 Consult Discharge Plan - Plan Referrals: Coleen Ho CNP [Primary Care Provider] -
[2017-10-30] MEDS ORDERED: 0.9 % Sodium Chloride 1,000 ML IVC SCH (18:15)
[2017-10-30 18:54] LABS: Basophils % 0.3 %; Eosinophils # 0.2 K/mcL (0.0-0.6); Eosinophils % 2.7 %; Hematocrit 35.6 % (35.3-44.9); Hemoglobin 11.9 g/dL (11.5-15.4); Immature Granulocytes % 0.3 % (0-4); Lymphocytes # 2.9 K/mcL (0.6-4.6); Mean Corpuscular HGB Conc 33.4 g/dL (31.6-35.5); Mean Corpuscular Hemoglobin 29.8 pg (28.0-33.3); Mean Platelet Volume 9.8 fL (9.4-12.4); Monocytes # 0.6 K/mcL (0.0-1.3); Monocytes % 6.7 %; Neutrophils # 4.8 K/mcL (1.6-8.9); Platelet Count 273 K/mcL (140-400); Red Cell Distribution Width 12.6 % (11.5-14.5)
[2017-10-30 19:21] LABS: Troponin I < 0.03 ng/mL (< 0.04)
[2017-10-30 19:32] LABS: Amylase 29 Units/L (29-103); Lipase 12 Units/L (11-82)
[2017-10-30] MEDS: hydrOXYzine pamoate 25 MG CAPSULE PO SCH (22:10)
[2017-10-30] MEDS: Gabapentin 100 MG CAPSULE PO SCH (22:11)
[2017-10-31] MEDS: *HR* OxyCODONE ER (12 HR) 10 MG TABLET PO SCH ×2 (00:22→06:10)
[2017-10-31 04:52] LABS: Alanine Aminotransferase 15 Units/L (7-52); Albumin 3.4 g/dL (3.5-5.7); Albumin/Globulin Ratio 1.4 (1.1-2.2); Alkaline Phosphatase 78 Units/L (34-104); Aspartate Amino Transferase 14 Units/L (13-39); BUN/Creatinine Ratio 13 (6-26); Bilirubin,Total 0.3 mg/dL (0.3-1.0); Blood Urea Nitrogen 13 mg/dL (6-20); Calcium 8.7 mg/dL (8.6-10.3); Carbon Dioxide 19 mEq/L (23-29); Chloride 114 mEq/L (98-107); Globulin 2.5 g/dL (2.4-3.5); Glucose 89 mg/dL (70-105); Osmolality,Calculated 288 (280-300); Sodium 139 mEq/L (136-145); Total Protein 5.9 g/dL (6.4-8.9); eGFR For Non-African Americans 56 (> 60)
[2017-10-31] MEDS ORDERED: *HR* Midazolam HCl 5 MG/5 ML VIAL IVP ONE ×2 (07:28→08:11)
[2017-10-31] MEDS ORDERED: *HR* FentaNYL (PF) 100 MCG/2 ML VIAL ONE (07:28)
[2017-10-31] MEDS ORDERED: Tetracaine/Benzocaine/Butamben 200MG/SPRAY (100SPY/BOT) MM ONE (08:11)
[2017-10-31] MEDS ORDERED: *HR* FentaNYL (PF) 100 MCG/2 ML VIAL IVP ONE (08:11)
[2017-10-31] MEDS ORDERED: Simethicone 40 MG/0.6 ML MLS IR ONE (08:11)
--- NOTE | 2017-10-31 08:11 | Pre-Sedation Evaluation ---
Pre-sedation evaluation - Pre-sedation checklist Date of procedure: 10/31/17 Recent Vitals: Last Vital Signs Temp 97.7 F 10/31/17 06:57 Pulse 79 10/31/17 08:08 Resp 16 10/31/17 08:08 BP 134/80 10/31/17 08:08 Pulse Ox 95 10/31/17 08:08 ASA Classification *see protocol: CLASS II-Mild systemic disease Plan of Care: Pt appropriate candidate for procedure/moderate/conscious sedation , Risks/benefits of procedure/sedation discussed w/ patient/family Cardiac Registry (Cardio Only) - Functional Capacity - Clincal Frailty Scale
[2017-10-31 08:18] VITALS: BP 135/76
[2017-10-31] MEDS ORDERED: BuPROPion XL (24 HR) 150 MG TABLET PO SCH (09:00)
[2017-10-31] MEDS ORDERED: ARIPiprazole 10 MG TABLET PO SCH (09:00)
[2017-10-31] MEDS: Gabapentin 100 MG CAPSULE PO SCH ×2 (09:10→15:49)
[2017-10-31] MEDS: hydrOXYzine pamoate 25 MG CAPSULE PO SCH ×2 (09:10→15:49)
--- NOTE | 2017-10-31 10:26 | Discharge Summary ---
- NOTES TO OUTPATIENT PROVIDER Notes to Outpatient Provider: Patient was admitted for epigastric/left upper quadrant pain. EGD showed multiple, non-bleeding gastric and duodenal ulcers. Will be sent home with PPI and carafate with GI follow up in 2 months for repeat EGD. Orders not resulted at time of discharge: Pending orders 10/30/17 18:18 Urinalysis Reflex Cult & Micro [URIN] Stat 10/31/17 08:22 Surgical Pathology [PTH] Routine Date of Encounter: 10/31/17 Time of Encounter: 08:50 - Discharge Diagnosis (1) CKD (chronic kidney disease) stage 3, GFR 30-59 ml/min Priority: Secondary Status: Chronic (2) DVT prophylaxis Priority: Secondary Status: Acute (3) Major depression, recurrent, chronic Priority: Secondary Status: Acute (4) Gastric ulcer Priority: Primary Status: Acute Qualifiers: Gastric ulcer chronicity: acute Gastric ulcer complication status: without hemorrhage or perforation Qualified Code(s): K25.3 - Acute gastric ulcer without hemorrhage or perforation (5) Duodenal ulcer Priority: Secondary Status: Acute Hospital course: Ms. Garcia is a 57 year old female was admitted for epigastric/left upper quadrant pain. EGD showed multiple, non-bleeding gastric and duodenal ulcers. Will be sent home with PPI and carafate with GI follow up in 2 months for repeat EGD. Biopsy result pending at the time of discharge, will need additional therapy for H. Pylori if positive. Discharge discussed with: patient - Time Spent with Patient Total time spent providing and/or coordinating discharge services: Greater than 30 minutes - Discharge Medications Prescriptions: HYDROcodone/Acet 5/325 mg [[place] 5-325 mg] 1 tab PO Q6H PRN 3 Days #12 tab PRN Reason: Breakthrough Pain Omeprazole [PriLOSEC] 40 mg PO BID #60 cap Sucralfate [Carafate] 1 gm PO BID #60 oral.susp Home Medications: Multivitamin [Flintstones] 1 tab PO DAILY 12/05/14 [History] Bupropion HCl [Wellbutrin Xl] 300 mg PO DAILY 14 Days tab.er.24h 08/05/16 [Rx] Estradiol [Estrace] 1 mg PO DAILY #30 tablet 08/05/16 [Rx] Gabapentin [Neurontin] 100 mg PO TID #90 capsule 08/05/16 [Rx] Propranolol [Inderal] 10 mg PO TID #90 tablet 08/05/16 [Rx] Cyclobenzaprine [Flexeril] 10 mg PO TID 09/23/16 [History] Polyethylene Glycol 3350 17 gm PO DAILY PRN 09/23/16 [History] ARIPiprazole [Abilify] 10 mg PO DAILY 01/16/17 [History] HydrOXYzine Pamoate [Vistaril] 50 mg PO TID 01/16/17 [History] Linaclotide [Linzess] 145 mcg PO DAILY 01/16/17 [History] traZODone [TraZODone] 200 mg PO HS PRN 10/30/17 [History] HYDROcodone/Acet 5/325 mg [[place] 5-325 mg] 1 tab PO Q6H PRN 3 Days #12 tab 10/31 [Rx] Omeprazole [PriLOSEC] 40 mg PO BID #60 cap 10/31/17 [Rx] Sucralfate [Carafate] 1 gm PO BID #60 oral.susp 10/31/17 [Rx] Allergies/Adverse Reactions: 3 Allergy/AdvReac Type Severity Reaction Status Date / Time acetaminophen [From Tylenol] Allergy See Verified 10/30/17 09:39 Comments morphine Allergy Hypotension Verified 10/30/17 09:39 Penicillins Allergy See Verified 10/30/17 09:39 Comments Date of admission: 10/30/17 09:50 Primary care physician: Coleen Ho Consults: 10/30/17 18:18 Consult to Gastroenterology [CONS] Stat Consulting Provider: Gastroenterology Zofia Reason for Consult: abnormal CT abdominal scan , abdominal pain Time Notified: 18:27 Call Completed: Yes - Constitutional Vitals: Temp Pulse Resp BP Pulse Ox 97.7 F 73 16 135/76 95 10/31/17 06:57 10/31/17 08:18 10/31/17 08:18 10/31/17 08:18 10/31/17 08:18 Exam: General: Alert and oriented, not in acute distress. Cardiovascular:Normal S1 & S2, No JVD. Pulse regular. Lungs: clear to auscultation, no wheezes/rales Abdomen:Soft, mild epigastric tenderness. No rebound/guarding Extremities:No deformity or swelling Neurological:Normal cognition and motor skills. Non-focal - Patient Status Disposition: Home, Self-Care Condition: Fair Functional capacity at discharge: independent ambulation Overall status at discharge: patient is progressing back to baseline - Discharge Instructions Follow Up With: Coleen Ho CNP [Primary Care Provider] - Aury Tabares MD [Partnered Physician] - Forms: ED Satisfaction Letter, Work/School Release - Diet and Activity Diet: advance to your usual diet
--- NOTE | 2017-10-31 11:45 | Gastroenterology Consult Note ---
<Tito Peralta - Last Filed: 10/31/17 11:42> Date of Encounter: 10/31/17 Time of Encounter: 11:20 - Assessment and plan (1) Abdominal pain Status: Acute Assessment and plan: Plan for EGD today to r/o esophagitis, gastritis, duodenitis, PUD, MW tear, or AVM. Pt is s/p Bakari fundoplication. Continue PPI. Qualifiers: Abdominal location: epigastric Qualified Code(s): R10.13 - Epigastric pain (2) History of Bakari fundoplication Status: Acute Assessment and plan: Completed about 1 year ago at [facility]. - Time Spent With Patient Total time spent is greater than 50% in coordination of care (as documented) at patient's floor/unit and/or counseling patient: GI History of Present Illness - Data of Consult Patient: new to practice Consult date: 10/31/17 Requesting Physician: Landon Davey - Consult Narrative Reason for consult: abdominal pain History of present illness: Ms. Garcia is a 57 year old female with PMHx of GERD, renal disease, bipolar who presented to the ED with LUQ abdominal pain. Had 2 recent visits to the ED and her PCP office. She states that she was seen in primary care day before admission and she was concerned for a pancreatitis and was advised to come to the ED. She complained of nausea, vomiting, and LUQ pain that was severe. She denies fever, chills, chest pain, shortness of breath, diarrhea, constipation, melena, hematochezia. CT A/P on 10/27 showed hiatal hernia, subtle ill definition along the margins of the duodenum, which may represent artifact however a tiny focal area of duodenitis or even a small focal segment of pancreatitis cannot excluded. Procedures: None NSAIDs: None Anticoagulation: None Past Med Surg Social Fam HX - Past Medical History Medical history: GERD, renal disease Additional medical history: stage 3 kidney disease Psychiatric history: bipolar, depression, prior suicide attempt - Past Surgical History Surgical History: hysterectomy, other Additional surgical history: hernia repair, bladder - Social History Smoking Status: Current every day smoker Smokeless Tobacco Status: No Alcohol use: none Drug use: none - Family History Mother Adopted: [place]: Natasha Hearn Family Member Ethnicity: Non- Twin of Family Member: Yes Living Status: Age at : 91 Hx Family Endocrine Disorder: Yes (DM) - Gastrointestinal Gastrointestinal: Present: as per HPI - Constitutional Constitutional: as per HPI - EENT Eyes: as per HPI Ears: Present: as per HPI Nose, mouth and throat: Present: as per HPI - Cardiovascular Cardiovascular ROS: Present: as per HPI - Respiratory Respiratory IM: Present: as per HPI - Genitourinary Genitourinary: Absent: change in color, Urinary frequency - Neurological ROS Neurological GI: Present: as per HPI - Hematologic/Lymphatic Hematologic/Lymphatic pediatric: Present: as per HPI - Musculoskeletal Musculoskeletal ROS GI: Present: as per HPI - Integumentary Integumentary GI: Present: as per HPI - Psychiatric ROS Psychiatric GI: Present: as per HPI - Endocrine Endocrine IM: Present: as per HPI - Constitutional Vitals: Temp Pulse Resp BP Pulse Ox 97.7 F 73 16 135/76 95 10/31/17 06:57 10/31/17 08:18 10/31/17 08:18 10/31/17 08:18 10/31/17 08:18 General appearance: Present: cooperative, A&O X 3, no acute distress, answers questions appropriately - Head Head exam: Present: atraumatic, normocephalic - Eye Eye exam: Present: normal appearance, sclera anicteric - ENT ENT exam: Present: mucous membranes dry - Neck Neck exam general surgery: Present: normal inspection, trachea midline - Respiratory Respiratory exam: Present: CTAB. Absent: rales, rhonchi - Cardiovascular Cardiovascular exam: Present: RRR, +S1, +S2 - GI/Abdominal GI/Abdominal exam: Present: soft, tenderness (epigastric), no peritoneal signs. Absent: distended, firm, guarding - Rectal Rectal exam: Present: deferred - Extremities Exam Extremities exam: Present: warm - Neurological Exam Neurological exam: Present: no focal deficits - Psychiatric Psychiatric exam: Present: normal affect, normal mood - Skin Skin exam: Present: dry, intact, normal color, warm Results - Labs CBC & Chem 7: 10/30/17 18:41 10/31/17 04:11 Labs: Last Result Calcium 8.7 mg/dL (8.6-10.3) 10/31/17 04:11 Troponin I < 0.03 ng/mL (< 0.04) 10/30/17 18:41 Entire Visit Hgb 11.9 g/dL (11.5-15.4) 10/30/17 18:41 Hct 35.6 % (35.3-44.9) 10/30/17 18:41 Total Bilirubin 0.3 mg/dL (0.3-1.0) 10/31/17 04:11 AST 14 Units/L (13-39) 10/31/17 04:11 ALT 15 Units/L (7-52) 10/31/17 04:11 Amylase 29 Units/L (29-103) 10/30/17 18:41 Lipase 12 Units/L (11-82) 10/30/17 18:41 Consult Discharge Plan - Plan Instructions: Peptic Ulcer (DC), Diet for Ulcers and Gastritis (GEN) Referrals: Coleen Ho CNP [Primary Care Provider] - 11/10/17 9:00 am Aury Tabares MD [Partnered Physician] - (Web request entered. Office will call patient at home with date and time of appt. thank you) Prescriptions: Ondansetron ODT [Zofran ODT] 4 mg SL Q6HR 4 Days #16 tab.rapdis HYDROcodone/Acet 5/325 mg [[place] 5-325 mg] 1 tab PO Q6H PRN 3 Days #12 tab PRN Reason: Breakthrough Pain Omeprazole [PriLOSEC] 40 mg PO BID #60 cap Sucralfate [Carafate] 1 gm PO BID #60 oral.susp <Aury Tabares - Last Filed: 10/31/17 16:27> Date of Encounter: 10/31/17 Time of Encounter: 08:00 - Time Spent With Patient Total time spent is greater than 50% in coordination of care (as documented) at patient's floor/unit and/or counseling patient: GI History of Present Illness - Data of Consult Requesting Physician: Angel Sullivan MD - Consult Narrative History of present illness: Ms. Garcia is a 57 year old female - Constitutional Vitals: Temp Pulse Resp BP Pulse Ox 97.7 F 73 16 135/76 95 10/31/17 06:57 10/31/17 08:18 10/31/17 08:18 10/31/17 08:18 10/31/17 08:18 Results - Labs CBC & Chem 7: 10/30/17 18:41 10/31/17 04:11 Labs: Last Result Calcium 8.7 mg/dL (8.6-10.3) 10/31/17 04:11 Troponin I < 0.03 ng/mL (< 0.04) 10/30/17 18:41 Entire Visit Hgb 11.9 g/dL (11.5-15.4) 10/30/17 18:41 Hct 35.6 % (35.3-44.9) 10/30/17 18:41 Total Bilirubin 0.3 mg/dL (0.3-1.0) 10/31/17 04:11 AST 14 Units/L (13-39) 10/31/17 04:11 ALT 15 Units/L (7-52) 10/31/17 04:11 Amylase 29 Units/L (29-103) 10/30/17 18:41 Lipase 12 Units/L (11-82) 10/30/17 18:41 - Attending Attestation I have personally performed a face to face evaluation on this patient. I have reviewed and agree with the care plan. History and Exam by me shows: Pt seen. Complaining of epigastric pain . O/E Mild tanderness Pt with abd pain and abn CT of duodenum r/o ulcer Rec: Cont PPI. EGD
== END 2017-10-31 16:18 | disposition home or self-care (01) ==
LOC: 3ANU 06:54 → EMEROOARM 06:54 → SUATTDRO 09:50 → 3ANU 10:15
PROVIDERS: ADMIT Student in an Organized Health Care Education/Training Program; ATTEND Internal Medicine
PROC: ENDOEBX (2017-10-31 08:00)

== ENCOUNTER 2017-12-18 16:41 | Inpatient (IN) ==
--- NOTE | 2017-12-18 17:48 | Emergency Department Note ---
Disposition Clinical Impression: Suicidal ideation Disposition: Admitted As Inpatient Condition: Fair Time of Disposition: 20:52 General Adult HPI - General Chief complaint: ED Psychiatric Symptoms Stated complaint: SI Time Seen by Provider: 12/18/17 17:13 Source: patient Mode of arrival: ambulatory Limitations: no limitations Nursing Notes Reviewed: Yes Vital Signs Reviewed: Yes - History of Present Illness HPI Narrative: Patient is a 57F with PMHx bipolar, depression, anxiety with prior psychiatric admissions, multiple suicidal attempts with medications, presents to the ED for evaluation of suicidal ideation. Patient states she hasn't been taking her psych medicines over the past 4 weeks because she thought she was doing better. Denies active drug use, hx of meth and marijuana use. Denies alcohol. States she has been considering overdosing on her medications over the past 2 days, has not attempted. - Related Data Home Medications Medication Instructions Recorded Confirmed Multivitamin [Flintstones] 1 tab PO DAILY 12/05/14 12/18/17 Cyclobenzaprine [Flexeril] 10 mg PO TID 09/23/16 12/18/17 Polyethylene Glycol 3350 17 gm PO DAILY PRN 09/23/16 12/18/17 HydrOXYzine Pamoate [Vistaril] 50 mg PO TID 01/16/17 12/18/17 traZODone [TraZODone] 200 mg PO HS PRN 10/30/17 12/18/17 Aripiprazole [Abilify] 15 mg PO DAILY 12/18/17 12/18/17 Topiramate [Topamax] 25 mg PO BID 12/18/17 12/18/17 lamoTRIgine [Lamictal] 200 mg PO BID 12/18/17 12/18/17 Previous Rx's Medication Instructions Recorded Bupropion HCl [Wellbutrin Xl] 300 mg PO DAILY 14 Days tab.er.24h 08/05/16 Estradiol [Estrace] 1 mg PO DAILY #30 tablet 08/05/16 Gabapentin [Neurontin] 100 mg PO TID #90 capsule 08/05/16 Propranolol [Inderal] 10 mg PO TID #90 tablet 08/05/16 Omeprazole [PriLOSEC] 40 mg PO BID #60 cap 10/31/17 Ondansetron ODT [Zofran ODT] 4 mg SL Q6HR 4 Days #16 tab.rapdis 10/31/17 Sucralfate [Carafate] 1 gm PO BID #60 oral.susp 10/31/17 Lidocaine Patch [Lidoderm 5% patch] 1 each TP DAILY PRN #20 adh..patch 11/30/17 Allergies Allergy/AdvReac Type Severity Reaction Status Date / Time acetaminophen [From Tylenol] Allergy See Verified 11/30/17 14:36 Comments morphine Allergy Hypotension Verified 11/30/17 14:36 Penicillins Allergy See Verified 11/30/17 14:36 Comments All systems ED: reviewed and negative except as stated. Review of Systems: As Per HPI Psychiatric: Reports: depression, suicidal thoughts. Denies: homicidal thoughts, auditory hallucinations, visual hallucinations Past Medical History - Past Medical History Attestation: Yes The following information was validated with the patient. Medical history: Reports: GERD, renal disease Surgical history: Reports: hysterectomy, other Psychiatric history: Reports: bipolar, depression, prior suicide attempt - Social History Smoking Status: Current every day smoker Smokeless Tobacco Status: No Alcohol use: Reports: none Drug use: Reports: none Physical Exam CONSTITUTIONAL: Alert and oriented X3, well-nourished, well appearing, in no apparent distress HEAD: Normocephalic; atraumatic. EYES: PERRL, no scleral icterus. NOSE: The nose is normal in appearance without rhinorrhea RESP: Normal chest excursion with respiration; breath sounds clear and equal bilaterally; no wheezes, rhonchi, or rales CARD: Regular rhythm, without murmurs, rub or gallop ABD: Non-distended; non-tender, soft,without rigidity, rebound or guarding SKIN: Normal for age and race; warm and dry; no apparent lesions PSYCH: Suicidal ideation. Denies HI. No auditory or visual hallucination. Course Course Narrative: Patient will undergo medical clearance for evaluation by the 1A team. Vital Signs Temperature 97.8 F 12/18/17 17:46 Pulse Rate 86 12/18/17 17:46 Respiratory Rate 15 12/18/17 17:46 Blood Pressure 122/84 12/18/17 17:46 O2 Sat by Pulse Oximetry 99 12/18/17 17:46 Temperature 99.1 F 12/18/17 21:30 Pulse Rate 80 12/18/17 21:30 Respiratory Rate 18 12/18/17 21:30 Blood Pressure 127/85 12/18/17 21:30 O2 Sat by Pulse Oximetry 96 12/18/17 21:30 Oxygen Delivery Oxygen Delivery Room Air Medical Decision Making - Medical Records Medical records reviewed: Yes I reviewed the patient's medical records. - Lab Data Lab results reviewed: Yes I reviewed the patient's lab results. Result diagrams: 12/18/17 17:33 12/18/17 17:33 Lab Results 12/18/17 12/18/17 12/18/17 Range/Units 17:33 17:33 18:16 WBC 7.6 (4.3-11.1) K/mcL RBC 4.50 (3.82-4.97) M/mcL Hgb 12.9 (11.5-15.4) g/dL Hct 39.5 (35.3-44.9) % MCV 87.8 (83.0-100.0) fL MCH 28.7 (28.0-33.3) pg MCHC 32.7 (31.6-35.5) g/dL RDW 12.9 (11.5-14.5) % Plt Count 248 (140-400) K/mcL MPV 10.4 (9.4-12.4) fL Immature Gran % 0.4 (0-4) % Seg Neutrophils % 55.1 % Lymphocytes % 33.1 % Monocytes % 8.5 % Eosinophils % 2.2 % Basophils % 0.7 % Neutrophils # 4.2 (1.6-8.9) K/mcL Lymphocytes # 2.5 (0.6-4.6) K/mcL Monocytes # 0.7 (0.0-1.3) K/mcL Eosinophils # 0.2 (0.0-0.6) K/mcL Basophils # 0.1 (0.0-0.2) K/mcL Sodium 141 (136-145) mEq/L Potassium 4.0 (3.5-5.1) mEq/L Chloride 111 H (98-107) mEq/L Carbon Dioxide 23 (23-29) mEq/L BUN 16 (6-20) mg/dL Creatinine 1.02 (0.60-1.20) mg/dL Est GFR ( Amer) > 60 (> 60) Est GFR (Non-Af Amer) 56 L (> 60) BUN/Creatinine Ratio 16 (6-26) Glucose 122 H (70-105) mg/dL Calculated Osmolality 294 (280-300) Calcium 8.8 (8.6-10.3) mg/dL Total Bilirubin 0.2 L (0.3-1.0) mg/dL Direct Bilirubin 0.1 (0.0-0.2) mg/dL Indirect Bilirubin 0.1 (0.0-1.2) mg/dL AST 18 (13-39) Units/L ALT 20 (7-52) Units/L Alkaline Phosphatase 80 (34-104) Units/L Serum Total Protein 6.2 L (6.4-8.9) g/dL Albumin 3.7 (3.5-5.7) g/dL Globulin 2.5 (2.4-3.5) g/dL Albumin/Globulin Ratio 1.5 (1.1-2.2) TSH 0.449 (0.340-5.600) mcIU/mL Urine Color Yellow (Yellow) Urine Clarity Clear (Clear) Urine pH 5.5 (5.0-8.0) pH Units Ur Specific [place] 1.017 (1.010-1.025) Urine Protein Negative (Neg-Trace) mg/dL Urine Glucose (UA) Normal (Normal) mg/dL Urine Ketones Negative (Negative) mg/dL Urine Blood Negative (Negative) Urine Nitrite Negative (Negative) Urine Bilirubin Negative (Negative) Urine Urobilinogen Normal (Normal) mg/dL Ur Leukocyte Esterase Negative (Negative) Salicylates < 2.5 L (15.0-30.0) mg/dL Urine Opiates Screen (Hbndgt=910) ng/mL Acetaminophen < 10 L (10-20) mcg/mL Ur Barbiturates Screen (Ezkajy=645) ng/mL Ur Phencyclidine Scrn (Cutoff=25) ng/mL Ur Amphetamines Screen (Hmnndq=5801) ng/mL U Benzodiazepines Scrn (Wlivpy=197) ng/mL Urine Cocaine Screen (Cutoff= 300) ng/mL U Marijuana (THC) Screen (Cutoff = 50) ng/mL Ur Drug Screen Interp Ethyl Alcohol < 10 (Less than 10) mg/dL 12/18/17 Range/Units 18:16 WBC (4.3-11.1) K/mcL RBC (3.82-4.97) M/mcL Hgb (11.5-15.4) g/dL Hct (35.3-44.9) % MCV (83.0-100.0) fL MCH (28.0-33.3) pg MCHC (31.6-35.5) g/dL RDW (11.5-14.5) % Plt Count (140-400) K/mcL MPV (9.4-12.4) fL Immature Gran % (0-4) % Seg Neutrophils % % Lymphocytes % % Monocytes % % Eosinophils % % Basophils % % Neutrophils # (1.6-8.9) K/mcL Lymphocytes # (0.6-4.6) K/mcL Monocytes # (0.0-1.3) K/mcL Eosinophils # (0.0-0.6) K/mcL Basophils # (0.0-0.2) K/mcL Sodium (136-145) mEq/L Potassium (3.5-5.1) mEq/L Chloride (98-107) mEq/L Carbon Dioxide (23-29) mEq/L BUN (6-20) mg/dL Creatinine (0.60-1.20) mg/dL Est GFR ( Amer) (> 60) Est GFR (Non-Af Amer) (> 60) BUN/Creatinine Ratio (6-26) Glucose (70-105) mg/dL Calculated Osmolality (280-300) Calcium (8.6-10.3) mg/dL Total Bilirubin (0.3-1.0) mg/dL Direct Bilirubin (0.0-0.2) mg/dL Indirect Bilirubin (0.0-1.2) mg/dL AST (13-39) Units/L ALT (7-52) Units/L Alkaline Phosphatase (34-104) Units/L Serum Total Protein (6.4-8.9) g/dL Albumin (3.5-5.7) g/dL Globulin (2.4-3.5) g/dL Albumin/Globulin Ratio (1.1-2.2) TSH (0.340-5.600) mcIU/mL Urine Color (Yellow) Urine Clarity (Clear) Urine pH (5.0-8.0) pH Units Ur Specific [place] (1.010-1.025) Urine Protein (Neg-Trace) mg/dL Urine Glucose (UA) (Normal) mg/dL Urine Ketones (Negative) mg/dL Urine Blood (Negative) Urine Nitrite (Negative) Urine Bilirubin (Negative) Urine Urobilinogen (Normal) mg/dL Ur Leukocyte Esterase (Negative) Salicylates (15.0-30.0) mg/dL Urine Opiates Screen Negative (Zesxot=014) ng/mL Acetaminophen (10-20) mcg/mL Ur Barbiturates Screen Negative (Ealerd=788) ng/mL Ur Phencyclidine Scrn Negative (Cutoff=25) ng/mL Ur Amphetamines Screen Negative (Nalvxk=8739) ng/mL U Benzodiazepines Scrn Negative (Urjmcj=025) ng/mL Urine Cocaine Screen Negative (Cutoff= 300) ng/mL U Marijuana (THC) Screen Negative (Cutoff = 50) ng/mL Ur Drug Screen Interp See Below Ethyl Alcohol (Less than 10) mg/dL Attestation Statement - Attestation Attestation: I examined this patient and my medical decision-making was reviewed with the Resident Physician, Dr. Tapia. I agree with the documented findings, disposition and treatment plan as described except to the extent set forth below. Patient's 57-year-old white female with a prior history of depression with multiple suicide attempts in the past and prior hospitalizations most recently a year ago. Patient states she is been off her medications for approximately 4 weeks because "she was feeling like she was doing much better". Patient states due to recent stressors with her boyfriend and living conditions that she has had increased depression over the past few days and actually called her social security we are with concerns for feeling suicidal. They contacted police use came to her house and evaluated her and called 911 to bring her to the emergency department. Patient is tearful at times but cooperative she denies any homicidal ideation no hallucinations or delusions. Patient feels that she is a threat to herself and before she attempts to do anything she called for help tonight. I agree with patient's physical exam findings as documented. Vital signs are stable. Patient was placed on suicide precautions pink slip was signed and placed on the chart and patient underwent psychiatric laboratory for medical clearance including urinalysis EtOH and drug screen. Patient's lab evaluations are all within normal limits patient was medically cleared for further psychiatric evaluation by [facility]. Following their evaluation they recommended inpatient treatment for her and that request was placed. Patient has remained him to hemodynamically stable, cooperative and in stable condition. Patient will be admitted to the psychiatric floor for further evaluation and management.
[2017-12-18 18:04] LABS: Basophils # 0.1 K/mcL (0.0-0.2); Basophils % 0.7 %; Eosinophils # 0.2 K/mcL (0.0-0.6); Eosinophils % 2.2 %; Hematocrit 39.5 % (35.3-44.9); Hemoglobin 12.9 g/dL (11.5-15.4); Immature Granulocytes % 0.4 % (0-4); Lymphocytes # 2.5 K/mcL (0.6-4.6); Lymphocytes % 33.1 %; Mean Corpuscular HGB Conc 32.7 g/dL (31.6-35.5); Mean Corpuscular Hemoglobin 28.7 pg (28.0-33.3); Mean Corpuscular Volume 87.8 fL (83.0-100.0); Mean Platelet Volume 10.4 fL (9.4-12.4); Monocytes # 0.7 K/mcL (0.0-1.3); Monocytes % 8.5 %; Neutrophils # 4.2 K/mcL (1.6-8.9); Platelet Count 248 K/mcL (140-400); Red Cell Distribution Width 12.9 % (11.5-14.5); Segmented Neutrophils % 55.1 %
[2017-12-18 18:30] LABS: Bilirubin,Urine Negative (Negative); Blood,Urine Negative (Negative); Clarity,Urine Clear (Clear); Color,Urine Yellow (Yellow); Glucose,Urine (UA) Normal (Normal); Ketones,Urine Negative (Negative); Leukocyte Esterase,Urine Negative (Negative); Nitrite,Urine Negative (Negative); PH,Urine 5.5 pH Units (5.0-8.0); Protein,Urine Negative (Neg-Trace); Specific Gravity,Urine 1.017 (1.010-1.025); Urobilinogen,Urine Normal (Normal)
[2017-12-18 18:33] LABS: Acetaminophen < 10 mcg/mL (10-20); Alanine Aminotransferase 20 Units/L (7-52); Albumin 3.7 g/dL (3.5-5.7); Albumin/Globulin Ratio 1.5 (1.1-2.2); Alkaline Phosphatase 80 Units/L (34-104); Aspartate Amino Transferase 18 Units/L (13-39); BUN/Creatinine Ratio 16 (6-26); Bilirubin,Direct 0.1 mg/dL (0.0-0.2); Bilirubin,Indirect 0.1 mg/dL (0.0-1.2); Bilirubin,Total 0.2 mg/dL (0.3-1.0); Blood Urea Nitrogen 16 mg/dL (6-20); Calcium 8.8 mg/dL (8.6-10.3); Carbon Dioxide 23 mEq/L (23-29); Chloride 111 mEq/L (98-107); Ethanol < 10 mg/dL (Less than 10); Globulin 2.5 g/dL (2.4-3.5); Glucose 122 mg/dL (70-105); Osmolality,Calculated 294 (280-300); Salicylate < 2.5 mg/dL (15.0-30.0); Sodium 141 mEq/L (136-145); Total Protein 6.2 g/dL (6.4-8.9); eGFR For Non-African Americans 56 (> 60)
[2017-12-18 18:41] LABS: Amphetamine Screen,Urine Negative ng/mL (Cutoff=1000); Barbiturate Screen,Urine Negative ng/mL (Cutoff=200); Benzodiazepines Screen,Urine Negative ng/mL (Cutoff=200); Cannabinoid Screen,Urine Negative ng/mL (Cutoff = 50); Cocaine Screen,Urine Negative ng/mL (Cutoff= 300); Opiate Screen,Urine Negative ng/mL (Cutoff=300); Phencyclidine Screen,Urine Negative ng/mL (Cutoff=25)
[2017-12-18 18:41] LABS: Thyroid Stimulating Hormone 0.449 mcIU/mL (0.340-5.600)
[2017-12-18] MEDS ORDERED: MOM Conc 10 ML UD.LIQ PO PRN (22:06)
[2017-12-18] MEDS ORDERED: Ibuprofen 400 MG TABLET PO PRN (22:06)
[2017-12-18] MEDS ORDERED: *HR* LORazepam 1 MG TABLET PO PRN (22:06)
[2017-12-18] MEDS ORDERED: *HR* LORazepam 2 MG/ML VIAL IM PRN (22:06)
[2017-12-18] MEDS ORDERED: Mag Hydrox/Al Hydrox/Simeth 30 ML UDC PO PRN (22:06)
[2017-12-18] MEDS ORDERED: Haloperidol Lactate 5 MG/ML VIAL IM PRN (22:06)
[2017-12-18] MEDS: hydrOXYzine pamoate 25 MG CAPSULE PO PRN (23:34)
[2017-12-18] MEDS: traZODone 50 MG TABLET PO PRN (23:35)
[2017-12-19] MEDS: Nicotine 21 MG PATCH.TD24 TD SCH (09:14)
--- NOTE | 2017-12-19 11:16 | Psychiatry History & Physical ---
Date of Encounter: 12/19/17 Time of Encounter: 11:15 History of Present Illness Patient Stated Chief Complaint: thoughts to harm myself Medicare Admission Attestation: For traditional Medicare patients the provided hospital inpatient services are reasonable and necessary and in the case of services not specified as inpatient-only under 42 CFR 419.22 (n), that they are appropriately provided as inpatient services in accordance 42 CFR 412.3. For Critical Access Hospital the patient may reasonably be expected to be discharged or transferred to a hospital within 96 hours after admission to the Critical Access Hospital. Admitted From: Emergency Dept Plans for Post Hospital Care: Home History of Present Illness: Per admission: Patient is a 57F with PMHx bipolar, depression, anxiety with prior psychiatric admissions, multiple suicidal attempts with medications, presents to the ED for evaluation of suicidal ideation. Patient states she hasn't been taking her psych medicines over the past 4 weeks because she thought she was doing better. Denies active drug use, hx of meth and marijuana use. Denies alcohol. States she has been considering overdosing on her medications over the past 2 days, has not attempted. Pt is a 57 yo, , female, x3 x3, with 2 Daughters (33,27)who presents for mood and depression to the emergency department. Pt noted hx of manic episode nonsubstance induced. Pt noted thoughts that she wants to harm myself. Pt noted reports of wanting "overdose again. Pt noted she felt safe and comfortable on the unit. Pt was in agreement with treatment plan. Pt noted that she is doing better today. Pt noted she slept 6 hours last night. Pt noted her appetite is reduced. Pt rated her depression a 5, on a scale of zero to ten with ten being the worst and zero being none. Pt rate her anxiety a 5, on the same scale. Pt denied any current visual or auditory hallucinations. Pt denied any thoughts to harm herself or anyone else. Pt noted she has government housing in [place], [place]. Pt noted that her highest level of education is [employer]. Pt noted she is currently unemployed, however SSDI pending. Pt noted multiple inpt psychiatric hospitalizations. Pt noted4 previous suicide attempts approx. via overdose. Pt denied any family hx of suicide. PT noted her mother, grandmother and father have mood D/O or Bipolar D/O. PT agreed to utilizing only lurasidone and Depakote for medication management of Bipolar D/O. Pt was educated on the risks benefits and side-effects of these medications including no medication, pt was in agreement. No TD noted, AIMS=0 Tobacco: 1ppd Alcohol: Denies Street: meth and marijuana use Caffeine: 2-3 per day Plan: 1.Interval hx 2.Continue current medications 3.Review current labs 4.Pt had an opportunity to ask questions and discuss current treatment plan. 5.Supportive therapy was provided 6.Pt encouraged to consider group or individual therapy 7.Pt was in agreement with treatment plan. 8..Pt was educated on the risks benefits and side effects of current medications 9. start Depakote 750 mg PO QHS for mood draw current liver fxn labs Pt was educated on the risks benefits and side effects of current medications including no medication and pt agreed 10. Start lurasidone 20 mg PO QHS for mood Pt was educated on the risks benefits and side effects of current medications including no medications and pt was in agreement. Past Med Surg Social Fam HX - Past Medical History Medical history: GERD, renal disease - Past Psychiatric History Psychiatric history: Reports: bipolar, depression, previous psychiatric hospitalization Family psychiatric history: Yes Family History of Suicide: None - Past Surgical History Surgical History: hysterectomy, other - Social History Smoking Status: Current every day smoker Smokeless Tobacco Status: No Alcohol use: none Drug use: none - Family History Mother Adopted: No Family Member Ethnicity: Non- Twin of Family Member: Yes Living Status: Hx Family Endocrine Disorder: Yes (DM) Medications & Allergies Multivitamin [Flintstones] 1 tab PO DAILY 12/05/14 [History] Bupropion HCl [Wellbutrin Xl] 300 mg PO DAILY 14 Days tab.er.24h 08/05/16 [Rx] Estradiol [Estrace] 1 mg PO DAILY #30 tablet 08/05/16 [Rx] Gabapentin [Neurontin] 100 mg PO TID #90 capsule 08/05/16 [Rx] Propranolol [Inderal] 10 mg PO TID #90 tablet 08/05/16 [Rx] Cyclobenzaprine [Flexeril] 10 mg PO TID 09/23/16 [History] Polyethylene Glycol 3350 17 gm PO DAILY PRN 09/23/16 [History] HydrOXYzine Pamoate [Vistaril] 50 mg PO TID 01/16/17 [History] traZODone [TraZODone] 200 mg PO HS PRN 10/30/17 [History] Omeprazole [PriLOSEC] 40 mg PO BID #60 cap 10/31/17 [Rx] Ondansetron ODT [Zofran ODT] 4 mg SL Q6HR 4 Days #16 tab.rapdis 10/31/17 [Rx] Sucralfate [Carafate] 1 gm PO BID #60 oral.susp 10/31/17 [Rx] Lidocaine Patch [Lidoderm 5% patch] 1 each TP DAILY PRN #20 adh..patch 11/30/17 [Rx] Aripiprazole [Abilify] 15 mg PO DAILY 12/18/17 [History] Topiramate [Topamax] 25 mg PO BID 12/18/17 [History] lamoTRIgine [Lamictal] 200 mg PO BID 12/18/17 [History] Allergy/AdvReac Type Severity Reaction Status Date / Time acetaminophen [From Tylenol] Allergy See Verified 11/30/17 14:36 Comments morphine Allergy Hypotension Verified 11/30/17 14:36 Penicillins Allergy See Verified 11/30/17 14:36 Comments Review of Systems Constitutional: Denies: fever, chills, weakness, weight change Eyes: Denies: eye pain, vision change Ears, Nose, Throat: Denies: ear pain, throat pain, dental pain, hearing loss, congestion Cardiovascular: Denies: chest pain, palpitations, dyspnea on exertion Respiratory: Denies: cough, dyspnea, wheezes Gastrointestinal: Denies: abdominal pain, nausea, vomiting, diarrhea, constipation Genitourinary female: Reports: other (noted hx of renal disease, current labs normal). Denies: urgency, dysuria, frequency, abnormal menses, dyspareunia Musculoskeletal: Denies: joint swelling, joint pain Integumentary: Denies: rash, lesions, pruritus Neurological: Denies: headache, weakness, numbness, memory loss Psychiatric: Reports: depression, suicidal ideation Endocrine: Denies: fatigue, heat or cold intolerance Hematologic/Lymphatic: Denies: easy bruising, lymphadenopathy Allergic/Immunologic: Denies: urticaria, itchy eyes Exam - HEENT Head exam IM: Present: atraumatic Eye exam IM: Present: EOMI, normal appearance, PERRL ENT exam IM: Present: normal exam - Neurological Neurological exam: Present: CN II-XII intact - Respiratory Respiratory exam IM: Present: CTAB - GI/Abdominal GI/Abdominal exam IM: Present: normal bowel sounds, soft. Absent: tenderness - Extremities Extremities exam IM: Present: full ROM - Skin Skin exam IM: Present: dry, warm - Constitutional Vitals: Temp Pulse Resp BP Pulse Ox 97.6 F 88 22 130/83 95 12/19/17 09:00 12/19/17 09:00 12/19/17 09:00 12/19/17 09:00 12/19/17 09:00 General appearance: age & developmentally appropriate, well-groomed, well- nourished - Musculoskeletal Gait: normal Station: relaxed Strength & Tone: normal for patient - Psychiatric Patient Orientation: Yes Person, Yes Time, Yes Place Level of alertness: Alert Behavior: calm, cooperative Psychomotor activity: Normal Eye Contact: Maintains Eye Contact Mood Description: Depressed Affect description: flat, dysphoric Speech Volume: Normal Speech pattern: normal rate, normal rhythm, normal tone, fluent, spontaneous Language & Vocabulary: consistent with education Thought Process: Linear, Goal Oriented Thought Content: No Suicidal ideation, No Homicidal ideation, No Overt delusions Perceptual Disturbances: No Auditory hallucinations, No Visual hallucinations Attention Span Ability: Capable of Focused Attention Memory Description: Grossly Intact Patient Reliability: Reliable Historian Fund of knowledge: Yes abstraction ability, Yes average, Yes aware of current events Intelligence Estimate: Average Judgment: Limited Insight: Partial Results - Drug Levels and Toxicology Drug Levels and Toxicology: Drug Levels and Toxicity 12/18/17 12/18/17 17:33 18:16 Urine Opiates Screen Negative Acetaminophen < 10 L Ur Barbiturates Screen Negative Ur Phencyclidine Scrn Negative Ur Amphetamines Screen Negative U Benzodiazepines Scrn Negative Urine Cocaine Screen Negative U Marijuana (THC) Screen Negative Ethyl Alcohol < 10 - Labs Labs: Laboratory Last Values WBC 7.6 K/mcL (4.3-11.1) 12/18/17 17:33 RBC 4.50 M/mcL (3.82-4.97) 12/18/17 17:33 Hgb 12.9 g/dL (11.5-15.4) 12/18/17 17:33 Hct 39.5 % (35.3-44.9) 12/18/17 17:33 MCV 87.8 fL (83.0-100.0) 12/18/17 17:33 MCH 28.7 pg (28.0-33.3) 12/18/17 17:33 MCHC 32.7 g/dL (31.6-35.5) 12/18/17 17:33 RDW 12.9 % (11.5-14.5) 12/18/17 17:33 Plt Count 248 K/mcL (140-400) 12/18/17 17:33 MPV 10.4 fL (9.4-12.4) 12/18/17 17:33 Immature Gran % 0.4 % (0-4) 12/18/17 17:33 Seg Neutrophils % 55.1 % 12/18/17 17:33 Lymphocytes % 33.1 % 12/18/17 17:33 Monocytes % 8.5 % 12/18/17 17:33 Eosinophils % 2.2 % 12/18/17 17:33 Basophils % 0.7 % 12/18/17 17:33 Neutrophils # 4.2 K/mcL (1.6-8.9) 12/18/17 17:33 Lymphocytes # 2.5 K/mcL (0.6-4.6) 12/18/17 17:33 Monocytes # 0.7 K/mcL (0.0-1.3) 12/18/17 17:33 Eosinophils # 0.2 K/mcL (0.0-0.6) 12/18/17 17:33 Basophils # 0.1 K/mcL (0.0-0.2) 12/18/17 17:33 Sodium 141 mEq/L (136-145) 12/18/17 17:33 Potassium 4.0 mEq/L (3.5-5.1) 12/18/17 17:33 Chloride 111 mEq/L (98-107) H 12/18/17 17:33 Carbon Dioxide 23 mEq/L (23-29) 12/18/17 17:33 BUN 16 mg/dL (6-20) 12/18/17 17:33 Creatinine 1.02 mg/dL (0.60-1.20) 12/18/17 17:33 Est GFR ( Amer) > 60 (> 60) 12/18/17 17:33 Est GFR (Non-Af Amer) 56 (> 60) L 12/18/17 17:33 BUN/Creatinine Ratio 16 (6-26) 12/18/17 17:33 Glucose 122 mg/dL (70-105) H 12/18/17 17:33 Calculated Osmolality 294 (280-300) 12/18/17 17:33 Calcium 8.8 mg/dL (8.6-10.3) 12/18/17 17:33 Total Bilirubin 0.2 mg/dL (0.3-1.0) L 12/18/17 17:33 Direct Bilirubin 0.1 mg/dL (0.0-0.2) 12/18/17 17:33 Indirect Bilirubin 0.1 mg/dL (0.0-1.2) 12/18/17 17:33 AST 18 Units/L (13-39) 12/18/17 17:33 ALT 20 Units/L (7-52) 12/18/17 17:33 Alkaline Phosphatase 80 Units/L (34-104) 12/18/17 17:33 Serum Total Protein 6.2 g/dL (6.4-8.9) L 12/18/17 17:33 Albumin 3.7 g/dL (3.5-5.7) 12/18/17 17:33 Globulin 2.5 g/dL (2.4-3.5) 12/18/17 17:33 Albumin/Globulin Ratio 1.5 (1.1-2.2) 12/18/17 17:33 TSH 0.449 mcIU/mL (0.340-5.600) 12/18/17 17:33 Urine Color Yellow (Yellow) 12/18/17 18:16 Urine Clarity Clear (Clear) 12/18/17 18:16 Urine pH 5.5 pH Units (5.0-8.0) 12/18/17 18:16 Ur Specific [place] 1.017 (1.010-1.025) 12/18/17 18:16 Urine Protein Negative mg/dL (Neg-Trace) 12/18/17 18:16 Urine Glucose (UA) Normal mg/dL (Normal) 12/18/17 18:16 Urine Ketones Negative mg/dL (Negative) 12/18/17 18:16 Urine Blood Negative (Negative) 12/18/17 18:16 Urine Nitrite Negative (Negative) 12/18/17 18:16 Urine Bilirubin Negative (Negative) 12/18/17 18:16 Urine Urobilinogen Normal mg/dL (Normal) 12/18/17 18:16 Ur Leukocyte Esterase Negative (Negative) 12/18/17 18:16 Salicylates < 2.5 mg/dL (15.0-30.0) L 12/18/17 17:33 Urine Opiates Screen Negative ng/mL (Nplfxy=617) 12/18/17 18:16 Acetaminophen < 10 mcg/mL (10-20) L 12/18/17 17:33 Ur Barbiturates Screen Negative ng/mL (Brlbyc=302) 12/18/17 18:16 Ur Phencyclidine Scrn Negative ng/mL (Cutoff=25) 12/18/17 18:16 Ur Amphetamines Screen Negative ng/mL (Emaxkk=7117) 12/18/17 18:16 U Benzodiazepines Scrn Negative ng/mL (Wyaadu=089) 12/18/17 18:16 Urine Cocaine Screen Negative ng/mL (Cutoff= 300) 12/18/17 18:16 U Marijuana (THC) Screen Negative ng/mL (Cutoff = 50) 12/18/17 18:16 Ur Drug Screen Interp See Below 12/18/17 18:16 Ethyl Alcohol < 10 mg/dL (Less than 10) 12/18/17 17:33 Assessment and Plan (1) Bipolar 1 disorder Current visit: Yes Status: Acute Plan: Admit inpatient for safety and stabilization, Close observation, Suicide Precautions per unit protocol, Encourage participation in unit milieu, Group Therapy, Monitor sleep, Monitor appetite Risks, benefits, side effects, alternatives discussed w/pt: Yes Patient agreeable to treatment: Yes Plans for Post Hospital Care: at Home (2) Suicidal ideation Current visit: Yes Status: Acute Plan: Admit inpatient for safety and stabilization, Close observation, Suicide Precautions per unit protocol, Encourage participation in unit milieu, Group Therapy, Monitor sleep, Monitor appetite Risks, benefits, side effects, alternatives discussed w/pt: Yes Patient agreeable to treatment: Yes Plans for Post Hospital Care: at Home (3) PTSD (post-traumatic stress disorder) Current visit: No Status: Chronic Plan: Admit inpatient for safety and stabilization, Close observation, Suicide Precautions per unit protocol, Encourage participation in unit milieu, Group Therapy, Monitor sleep, Monitor appetite Risks, benefits, side effects, alternatives discussed w/pt: Yes Patient agreeable to treatment: Yes Plans for Post Hospital Care: at Home
[2017-12-19 12:35] LABS: Albumin 3.8 g/dL (3.5-5.7); Albumin/Globulin Ratio 1.7 (1.1-2.2); Bilirubin,Total 0.2 mg/dL (0.3-1.0); Calcium 9.1 mg/dL (8.6-10.3); Globulin 2.2 g/dL (2.4-3.5); Potassium 4.6 mEq/L (3.5-5.1)
[2017-12-19] MEDS: Lurasidone 20 MG TABLET PO SCH (13:55)
[2017-12-19] MEDS: hydrOXYzine pamoate 25 MG CAPSULE PO PRN (20:35)
[2017-12-19] MEDS: Divalproex (12 HR) 250 MG TABLET PO SCH (20:37)
[2017-12-19] MEDS: traZODone 50 MG TABLET PO PRN (20:37)
[2017-12-20] MEDS: hydrOXYzine pamoate 25 MG CAPSULE PO PRN ×2 (01:28→20:21)
[2017-12-20] MEDS: Nicotine 21 MG PATCH.TD24 TD SCH (08:45)
[2017-12-20] MEDS: Lurasidone 20 MG TABLET PO SCH (08:45)
--- NOTE | 2017-12-20 09:40 | Psychiatry Progress Note ---
Date of Encounter: 12/20/17 Time of Encounter: 09:36 Subjective Interval history: Client reports she is feeling much better. Major stressors have resolved. "I thought my boyfriend had made a blancas bood but turns out he had just lost his phone." Boyfriend visited last night and she feels they are on the same page again. He was able to pay her rent so her immediate housing situation has also improved. However, client states her current apartment is not a good place for her and she requested discharge to look at new housing. Her med regimen was completely changed so it would not be parker to discharge her yet. Client expressed understanding. Will give it the and if she tolerates meds and still feels this good on Friday can look at discharge. Will need to check VPA level as outpatient if she leaves Friday. Client complaining of leg spasms all night and states she was unable to sleep. Takes Neurontin and Flexeril at home so will restart Neurontin and make Flexeril available as a prn. Review of Systems Constitutional: Denies: fever, chills, weakness, weight change Eyes: Denies: eye pain, vision change Ears, Nose, Throat: Denies: ear pain, throat pain, dental pain, hearing loss, congestion Cardiovascular: Denies: chest pain, palpitations, dyspnea on exertion Respiratory: Denies: cough, dyspnea, wheezes Gastrointestinal: Denies: abdominal pain, nausea, vomiting, diarrhea, constipation Musculoskeletal: Reports: myalgia, other Neurological: Reports: other Psychiatric: Reports: depression, suicidal ideation Results - Vital Signs Vital Signs: Temp Pulse Resp BP Pulse Ox 98.6 F 77 18 135/102 97 12/20/17 09:00 12/20/17 09:00 12/20/17 09:00 12/20/17 09:00 12/19/17 20:44 - Labs Labs: Laboratory Results - last 24 hr 12/19/17 11:55 Sodium 141 Potassium 4.6 Chloride 111 H Carbon Dioxide 25 BUN 14 Creatinine 1.14 Est GFR ( Amer) 60 Est GFR (Non-Af Amer) 49 L BUN/Creatinine Ratio 12 Glucose 87 Calculated Osmolality 292 Calcium 9.1 Total Bilirubin 0.2 L AST 18 ALT 19 Alkaline Phosphatase 83 Serum Total Protein 6.0 L Albumin 3.8 Globulin 2.2 L Albumin/Globulin Ratio 1.7 Assessment and Plan (1) Bipolar 1 disorder Current visit: Yes Status: Acute Plan: Continue hospitalization, Close observation, Suicide Precautions per unit protocol, Encourage participation in unit milieu, Group Therapy, Monitor sleep, Monitor appetite Risks, benefits, side effects, alternatives discussed w/pt: Yes Patient agreeable to treatment: Yes Consult Discharge Plan - Plan Referrals: [facility] [Outside] - 12/24/17 1:00 pm (The above appointment is with Mali Rose for outpatient mental health counseling and case management services. This is a home visit appointment.) [facility] [Outside] - 12/30/17 2:15 pm (The above appointment is with Coleen Ho for primary healthcare and medication management services. You will also see Marta Wiley for outpatient psychiatric assessment and medication management services on 03/05/2018 at 1:30PM. The above appointment(s) reflect first availability. You may contact the office regularly to check for cancellations that may allow you to be seen sooner.) Psychiatry Exam - Constitutional Vitals: Temp Pulse Resp BP Pulse Ox 98.6 F 77 18 135/102 97 12/20/17 09:00 12/20/17 09:00 12/20/17 09:00 12/20/17 09:00 12/19/17 20:44 General appearance: obese - Musculoskeletal Gait: normal Station: relaxed Strength & Tone: normal for patient - Psychiatric Patient Orientation: Yes Person, Yes Time, Yes Place Level of alertness: Alert Behavior: calm, cooperative Psychomotor activity: Normal Eye Contact: Maintains Eye Contact Mood Description: Anxious Affect description: congruent with mood Speech Volume: Normal Speech pattern: normal rate, normal rhythm, normal tone, fluent, spontaneous Language & Vocabulary: consistent with education Thought Process: Linear, Goal Oriented Thought Content: No Suicidal ideation, No Homicidal ideation, No Overt delusions Perceptual Disturbances: No Auditory hallucinations, No Visual hallucinations Attention Span Ability: Capable of Focused Attention Memory Description: Grossly Intact Patient Reliability: Reliable Historian Fund of knowledge: Yes abstraction ability, Yes aware of current events Intelligence Estimate: Average Judgment: Limited Insight: Partial
[2017-12-20] MEDS: Gabapentin 100 MG CAPSULE PO SCH ×2 (14:33→20:21)
[2017-12-20] MEDS: Divalproex (12 HR) 250 MG TABLET PO SCH (20:21)
[2017-12-20] MEDS: traZODone 50 MG TABLET PO PRN (20:22)
[2017-12-21] MEDS: Lurasidone 20 MG TABLET PO SCH (08:37)
[2017-12-21] MEDS: Gabapentin 100 MG CAPSULE PO SCH ×3 (08:37→20:38)
[2017-12-21] MEDS: Nicotine 21 MG PATCH.TD24 TD SCH (08:38)
--- NOTE | 2017-12-21 08:53 | Psychiatry Progress Note ---
Date of Encounter: 12/21/17 Time of Encounter: 08:51 Subjective Interval history: Client reports her mood is holding steady. Did not sleep well last night due to physical pain but mental issues seem improved. Robert SI. Has been cooperative in the hospital. Anxious about boyfriend finding a new place to live but aware she can't deal with this until she is out of the hospital. Meds seem to be working well. Likely discharge early this week. Review of Systems Constitutional: Denies: fever, chills, weakness, weight change Eyes: Denies: eye pain, vision change Ears, Nose, Throat: Denies: ear pain, throat pain, dental pain, hearing loss, congestion Cardiovascular: Denies: chest pain, palpitations, dyspnea on exertion Respiratory: Denies: cough, dyspnea, wheezes Gastrointestinal: Denies: abdominal pain, nausea, vomiting, diarrhea, constipation Musculoskeletal: Reports: back pain Neurological: Reports: other Psychiatric: Reports: depression, suicidal ideation Results - Vital Signs Vital Signs: Temp Pulse Resp BP Pulse Ox 97.8 F 91 17 126/88 97 12/21/17 08:22 12/21/17 08:22 12/21/17 08:22 12/21/17 08:22 12/19/17 20:44 Assessment and Plan (1) Bipolar 1 disorder Current visit: Yes Status: Acute Plan: Continue hospitalization, Close observation, Suicide Precautions per unit protocol, Encourage participation in unit milieu, Group Therapy, Monitor sleep, Monitor appetite Risks, benefits, side effects, alternatives discussed w/pt: Yes Patient agreeable to treatment: Yes Consult Discharge Plan - Plan Referrals: [facility] [Outside] - 12/24/17 1:00 pm (The above appointment is with Mali Rose for outpatient mental health counseling and case management services. This is a home visit appointment.) [facility] [Outside] - 12/30/17 2:15 pm (The above appointment is with Coleen Ho for primary healthcare and medication management services. You will also see Marta Wiley for outpatient psychiatric assessment and medication management services on 03/05/2018 at 1:30PM. The above appointment(s) reflect first availability. You may contact the office regularly to check for cancellations that may allow you to be seen sooner.) Psychiatry Exam - Constitutional Vitals: Temp Pulse Resp BP Pulse Ox 97.8 F 91 17 126/88 97 12/21/17 08:22 12/21/17 08:22 12/21/17 08:22 12/21/17 08:22 12/19/17 20:44 General appearance: obese - Musculoskeletal Gait: normal Station: relaxed Strength & Tone: normal for patient - Psychiatric Patient Orientation: Yes Person, Yes Time, Yes Place Level of alertness: Alert Behavior: calm, cooperative Psychomotor activity: Normal Eye Contact: Maintains Eye Contact Mood Description: Anxious Affect description: congruent with mood Speech Volume: Normal Speech pattern: normal rate, normal rhythm, normal tone, fluent, spontaneous Language & Vocabulary: consistent with education Thought Process: Logical Thought Content: No Suicidal ideation, No Homicidal ideation, No Overt delusions Perceptual Disturbances: No Auditory hallucinations, No Visual hallucinations Attention Span Ability: Capable of Focused Attention Memory Description: Grossly Intact Patient Reliability: Reliable Historian Fund of knowledge: Yes abstraction ability, Yes aware of current events Judgment: Fair Insight: Partial
[2017-12-21] MEDS: Divalproex (12 HR) 250 MG TABLET PO SCH (20:37)
[2017-12-21] MEDS: traZODone 50 MG TABLET PO PRN (20:38)
[2017-12-21] MEDS: hydrOXYzine pamoate 25 MG CAPSULE PO PRN (20:38)
[2017-12-22] MEDS: Gabapentin 100 MG CAPSULE PO SCH ×2 (08:51→16:47)
[2017-12-22] MEDS: Lurasidone 20 MG TABLET PO SCH (08:51)
[2017-12-22] MEDS: Nicotine 21 MG PATCH.TD24 TD SCH (08:51)
[2017-12-22 09:23] VITALS: BP 111/64
--- NOTE | 2017-12-22 16:20 | Discharge Summary ---
Date of Encounter: 12/22/17 Time of Encounter: 15:00 Diagnosis - Discharge Diagnosis (1) Bipolar 1 disorder Status: Chronic Medications - Discharge Medications Prescriptions: Divalproex (12 HR) [Depakote (12 HR)] 750 mg PO HS 30 Days #30 tablet. Lurasidone [Latuda] 20 mg PO DAILY 30 Days #30 tablet Multivitamin [Flintstones] 1 tab PO DAILY 12/05/14 [History] Estradiol [Estrace] 1 mg PO DAILY #30 tablet 08/05/16 [Rx] Gabapentin [Neurontin] 100 mg PO TID #90 capsule 08/05/16 [Rx] Propranolol [Inderal] 10 mg PO TID #90 tablet 08/05/16 [Rx] Cyclobenzaprine [Flexeril] 10 mg PO TID 09/23/16 [History] Polyethylene Glycol 3350 17 gm PO DAILY PRN 09/23/16 [History] HydrOXYzine Pamoate [Vistaril] 50 mg PO TID 01/16/17 [History] traZODone [TraZODone] 200 mg PO HS PRN 10/30/17 [History] Omeprazole [PriLOSEC] 40 mg PO BID #60 cap 10/31/17 [Rx] Ondansetron ODT [Zofran ODT] 4 mg SL Q6HR 4 Days #16 tab.rapdis 10/31/17 [Rx] Sucralfate [Carafate] 1 gm PO BID #60 oral.susp 10/31/17 [Rx] Lidocaine Patch [Lidoderm 5% patch] 1 each TP DAILY PRN #20 adh..patch 11/30/17 [Rx] Aripiprazole [Abilify] 15 mg PO DAILY 12/18/17 [History] Divalproex (12 HR) [Depakote (12 HR)] 750 mg PO HS 30 Days #30 tablet. 12/22/17 [Rx] Lurasidone [Latuda] 20 mg PO DAILY 30 Days #30 tablet 12/22/17 [Rx] Allergy/AdvReac Type Severity Reaction Status Date / Time acetaminophen [From Tylenol] Allergy See Verified 11/30/17 14:36 Comments morphine Allergy Hypotension Verified 11/30/17 14:36 Penicillins Allergy See Verified 11/30/17 14:36 Comments Results Procedures and tests throughout hospitalization: Completed Lab Orders Category Date Time Status Acetaminophen Stat Lab 12/18/17 17:33 Completed Basic Metabolic Panel Stat Lab 12/18/17 17:33 Completed Complete Blood Count [HEME] Stat Lab 12/18/17 17:33 Completed Comprehensive Metabolic Panel Routine Lab 12/19/17 11:55 Completed Drug Screen, Urine [UCHEM] Stat Lab 12/18/17 18:16 Completed Ethanol Stat Lab 12/18/17 17:33 Completed Hepatic Panel Stat Lab 12/18/17 17:33 Completed Salicylate Stat Lab 12/18/17 17:33 Completed Thyroid Stimulating Hormone Stat Lab 12/18/17 17:33 Completed Urinalysis reflex Microscopic [URIN] Stat Lab 12/18/17 18:16 Completed Valproate Routine Lab 12/22/17 10:51 Completed - Impressions Patient demonstrated improvement with medication management and milieu of unit. Patient did not demonstrate manic symtpoms except for some mild irritability. - Additional Comments Patient was amenable to continued followup and medication compliance. Provider Date of admission: 12/18/17 20:57 Primary care physician: PCP NONE Discharging clinician: Genesis Brice Psychiatry Exam - Constitutional Vitals: Temp Pulse Resp BP Pulse Ox 97.6 F 82 16 111/64 98 12/22/17 09:00 12/22/17 09:00 12/22/17 09:00 12/22/17 09:00 12/22/17 09:00 General appearance: age & developmentally appropriate, well-groomed, well- nourished - Musculoskeletal Gait: normal Station: relaxed Strength & Tone: normal for patient - Psychiatric Patient Orientation: Yes Person, Yes Time, Yes Place Level of alertness: Alert Behavior: anxious, suspicious Psychomotor activity: Normal Eye Contact: Maintains Eye Contact Mood Description: Anxious Affect description: congruent with mood, full range Speech Volume: Normal Speech pattern: normal rate, normal rhythm, normal tone, fluent, spontaneous Language & Vocabulary: consistent with education Thought Process: Linear, Goal Oriented Thought Content: No Suicidal ideation, No Homicidal ideation, No Overt delusions Perceptual Disturbances: No Auditory hallucinations, No Visual hallucinations Attention Span Ability: Capable of Focused Attention Memory Description: Grossly Intact Patient Reliability: Reliable Historian Fund of knowledge: Yes abstraction ability, Yes aware of current events Intelligence Estimate: Average Judgment: Fair Insight: Partial Hospital Course Hospital course: Ms. Garcia is a 57 year old female - Time Spent with Patient Total time spent providing and/or coordinating discharge services: Assessment and Plan - Patient/Caregiver Discharge Instructions Activity: resume usual activities as tolerated Diet: regular diet - Follow up Plan Follow up with: [facility] [Outside] - 12/24/17 1:00 pm (The above appointment is with Mali Rose for outpatient mental health counseling and case management services. This is a home visit appointment.) [facility] [Outside] - 12/30/17 2:15 pm (The above appointment is with Coleen Ho for primary healthcare and medication management services. You will also see Marta Wiley for outpatient psychiatric assessment and medication management services on 03/05/2018 at 1:30PM. The above appointment(s) reflect first availability. You may contact the office regularly to check for cancellations that may allow you to be seen sooner.) Disposition: Home, Self-Care Quality - Multiple Antipsychotics Patient discharged on 2 or more antipsychotic medications: No (Pt. on one antisychotic, Latuda at time of discharge)
== END 2017-12-22 16:55 | disposition home or self-care (01) | DRG 753 ==
LOC: EMEROOARM 16:41 → SUATTDRO 20:57 → 1ANU 20:57
PROVIDERS: ADMIT General Practice; ATTEND Psychiatry & Neurology Psychiatry

== ENCOUNTER 2018-08-18 03:33 | Observation (INO) ==
[2018-08-18] MEDS ORDERED: Ondansetron ODT 4 MG TAB.RAPDIS SL ONE (05:09)
[2018-08-18 05:52] LABS: Basophils % 0.3 %; Eosinophils % 0.2 %; Hematocrit 42.3 % (35.3-44.9); Hemoglobin 13.8 g/dL (11.5-15.4); Immature Granulocytes % 0.5 % (0-4); Lymphocytes # 2.5 K/mcL (0.6-4.6); Lymphocytes % 20.1 %; Mean Corpuscular HGB Conc 32.6 g/dL (31.6-35.5); Mean Corpuscular Hemoglobin 30.1 pg (28.0-33.3); Mean Corpuscular Volume 92.2 fL (83.0-100.0); Mean Platelet Volume 10.3 fL (9.4-12.4); Monocytes # 1.1 K/mcL (0.0-1.3); Monocytes % 8.7 %; Neutrophils # 8.6 K/mcL (1.6-8.9); Platelet Count 281 K/mcL (140-400); Red Blood Count 4.59 M/mcL (3.82-4.97); Red Cell Distribution Width 13.9 % (11.5-14.5); Segmented Neutrophils % 70.2 %; White Blood Count 12.2 K/mcL (4.3-11.1)
[2018-08-18 06:07] LABS: Calcium 9.4 mg/dL (8.6-10.3); Potassium 3.9 mEq/L (3.5-5.1)
--- NOTE | 2018-08-18 06:19 | Emergency Department Note ---
Disposition Clinical Impression: [id number] kidney injury, Elevated CPK Disposition: Admitted As Inpatient Condition: Fair Referrals: Coleen Ho CNP [Primary Care Provider] - Forms: ED Satisfaction Letter Time of Disposition: 07:01 General Adult HPI - General Chief complaint: ED Nausea/Vomiting/Diarrhea Stated complaint: Nausea/Weakness Time Seen by Provider: 08/18/18 04:39 Source: patient, EMS Limitations: no limitations - History of Present Illness Pain Scale: 5 - Related Data Home Medications Medication Instructions Recorded Confirmed Multivitamin [Flintstones] 1 tab PO DAILY 12/05/14 12/18/17 Cyclobenzaprine [Flexeril] 10 mg PO TID 09/23/16 12/18/17 Polyethylene Glycol 3350 17 gm PO DAILY PRN 09/23/16 12/18/17 HydrOXYzine Pamoate [Vistaril] 50 mg PO TID 01/16/17 12/18/17 traZODone [TraZODone] 200 mg PO HS PRN 10/30/17 12/18/17 Aripiprazole [Abilify] 15 mg PO DAILY 12/18/17 12/18/17 Previous Rx's Medication Instructions Recorded Estradiol [Estrace] 1 mg PO DAILY #30 tablet 08/05/16 Gabapentin [Neurontin] 100 mg PO TID #90 capsule 08/05/16 Propranolol [Inderal] 10 mg PO TID #90 tablet 08/05/16 Omeprazole [PriLOSEC] 40 mg PO BID #60 cap 10/31/17 Ondansetron ODT [Zofran ODT] 4 mg SL Q6HR 4 Days #16 tab.rapdis 10/31/17 Sucralfate [Carafate] 1 gm PO BID #60 oral.susp 10/31/17 Lidocaine Patch [Lidoderm 5% patch] 1 each TP DAILY PRN #20 adh..patch 11/30/17 Clindamycin HCl 450 mg PO TID #30 capsule 05/19/18 Lidocaine Patch [Lidoderm 5% patch] 1 each TP DAILY #12 adh..patch 05/19/18 Allergies Allergy/AdvReac Type Severity Reaction Status Date / Time acetaminophen [From Tylenol] Allergy See Verified 11/30/17 14:36 Comments morphine Allergy Hypotension Verified 11/30/17 14:36 Penicillins Allergy See Verified 11/30/17 14:36 Comments Past Medical History - Past Medical History Medical history: Reports: GERD, renal disease, other Surgical history: Reports: herniorrhaphy, hysterectomy, other Psychiatric history: Reports: anxiety, bipolar, depression, PTSD, previous psychiatric hospitalization - Social History Smoking Status: Current every day smoker Smokeless Tobacco Status: No Alcohol use: Reports: none Drug use: Reports: cocaine, other Physical Exam - General Limitations: no limitations General appearance: alert, in no apparent distress Course Vital Signs Temperature 98.6 F 08/18/18 03:47 Pulse Rate 102 08/18/18 03:47 Respiratory Rate 18 08/18/18 03:47 Blood Pressure 131/86 08/18/18 03:47 O2 Sat by Pulse Oximetry 96 08/18/18 03:47 Temperature 98.6 F 08/18/18 03:47 Pulse Rate 80 08/18/18 06:38 Respiratory Rate 16 08/18/18 06:38 Blood Pressure 109/82 08/18/18 06:38 O2 Sat by Pulse Oximetry 98 08/18/18 06:38 Oxygen Delivery Oxygen Delivery Room Air Medical Decision Making - Lab Data Result diagrams: 08/18/18 05:25 08/18/18 05:25 Lab Results 08/18/18 08/18/18 08/18/18 Range/Units 05:25 05:25 05:25 WBC 12.2 H (4.3-11.1) K/mcL RBC 4.59 (3.82-4.97) M/mcL Hgb 13.8 (11.5-15.4) g/dL Hct 42.3 (35.3-44.9) % MCV 92.2 (83.0-100.0) fL MCH 30.1 (28.0-33.3) pg MCHC 32.6 (31.6-35.5) g/dL RDW 13.9 (11.5-14.5) % Plt Count 281 (140-400) K/mcL MPV 10.3 (9.4-12.4) fL Immature Gran % 0.5 (0-4) % Seg Neutrophils % 70.2 % Lymphocytes % 20.1 % Monocytes % 8.7 % Eosinophils % 0.2 % Basophils % 0.3 % Neutrophils # 8.6 (1.6-8.9) K/mcL Lymphocytes # 2.5 (0.6-4.6) K/mcL Monocytes # 1.1 (0.0-1.3) K/mcL Eosinophils # 0.0 (0.0-0.6) K/mcL Basophils # 0.0 (0.0-0.2) K/mcL Sodium 143 (136-145) mEq/L Potassium 3.9 (3.5-5.1) mEq/L Chloride 109 H (98-107) mEq/L Carbon Dioxide 21 L (23-29) mEq/L BUN 21 H (6-20) mg/dL Creatinine 1.24 H (0.60-1.20) mg/dL Est GFR ( Amer) 54 L (> 60) Est GFR (Non-Af Amer) 45 L (> 60) BUN/Creatinine Ratio 17 (6-26) Glucose 90 (70-105) mg/dL Calculated Osmolality 299 (280-300) Calcium 9.4 (8.6-10.3) mg/dL Creatine Kinase 433 H (30-223) Units/L Troponin I < 0.03 (< 0.04) ng/mL Attestation Statement - Attestation Attestation: I, Andrzej Hinojosa DO, examined this patient [id number] and my medical decision-making was reviewed with Dr. Nanda Gaytan, Resident Physician. I agree with the documented findings, disposition and treatment plan as described except to the extent set forth below. I personally supervised and was present for the anaya/critical portions of the procedures completed by the resident documented below. Please see my progress notes for details. 58-year-old female presents emergency room with complaint of generalized malaise with nausea vomiting and abdominal discomfort. She denies any recent fevers or chills. She has not had any falls trauma or injury. She denies any chest pain or shortness of breath. Vital signs are stable on presentation. Patient has not traveled outside the country and has no specific sick contacts. On physical exam the patient is sitting upright in the bed. Lungs are clear. Heart is regular. Abdomen is soft nontender nondistended with no guarding no rigidity and no peritoneal symptoms at this time. Extremities otherwise normal. Patient has no specific cardiac or pulmonary history to note of at this point. Patient's initial heart rate was slightly elevated. Oral fluid hydration has been provided at this time along with nausea medication. Patient will have workup completed including EKG, labs, CBC. Patient will have the remainder the treatment course established and completed here in the emergency department stay. Disposition to be completed. EKG is reviewed by myself in documented by the resident physician. See detailed documentation of the physical exam, medical intervention, medical decision-making and disposition in the resident physician's note. No critical care provider the patient's treatment course at this time. Patient felt that she may have at heat stroke from being in her hot house here tonight. She does not have air conditioning the temperature is been significantly elevated. Patient has been drinking normal amounts of fluid and has had normal urinary output according to her. 0550 CPKs elevated at this time and her renal function is slightly increased from previous evaluations. Patient will be reevaluated and disposition determined. 0645 Patient was discussed with the hospitalist Dr. Gutierrez for admission secondary to dehydration, aching, elevated CK. Patient is otherwise at baseline mentation. She has no other acute lab abnormalities noted at this point. Patient is otherwise clinically stable. Fluid hydration has been started. Patient will be monitored here closely until the admission process is completed. No other acute concerns or issues noted.
[2018-08-18] MEDS ORDERED: 0.9 % Sodium Chloride 1,000 ML IVC ONE (06:27)
--- NOTE | 2018-08-18 06:27 | Emergency Department Note ---
Disposition Clinical Impression: [id number] kidney injury Qualifiers: Acute renal failure type: unspecified Chronic kidney disease stage: unspecified stage Qualified Code(s): N17.9 - Acute kidney failure, unspecified Disposition: Admitted As Inpatient Condition: Fair Referrals: Coleen Ho CNP [Primary Care Provider] - Forms: ED Satisfaction Letter Time of Disposition: 06:58 General Adult HPI - General Chief complaint: ED Nausea/Vomiting/Diarrhea Stated complaint: Nausea/Weakness Time Seen by Provider: 08/18/18 04:39 Source: patient, EMS Mode of arrival: private vehicle Limitations: no limitations Nursing Notes Reviewed: Yes Vital Signs Reviewed: Yes - History of Present Illness HPI Narrative: 58-year-old female with a past medical history of chronic kidney disease and diabetes, that noted that she has no air conditioning at her apartment. She states that sometime after midnight she began to feel extremely hot and she was sweating and just could not get cool. She states that she tried to take a cool shower to cool off and relax but at some point she felt like her extremities were drawing into her core, and she felt like everything was very warm. She reports that she is worried she may have had a heat stroke. She notes that her boyfriend placed a cool towel over her body but he was very concerned about the way that she looked commenting that she looked very pale, so he called EMS to have her evaluated. Patient notes that she has been drinking water nonstop, she states that she is drank about a gallon of ice water today. However she reports a history of being admitted approximately 17 years ago for similar symptoms requ iring IV fluids. Pain Scale: 5 - Related Data Home Medications Medication Instructions Recorded Confirmed Multivitamin [Flintstones] 1 tab PO DAILY 12/05/14 12/18/17 Cyclobenzaprine [Flexeril] 10 mg PO TID 09/23/16 12/18/17 Polyethylene Glycol 3350 17 gm PO DAILY PRN 09/23/16 12/18/17 HydrOXYzine Pamoate [Vistaril] 50 mg PO TID 01/16/17 12/18/17 traZODone [TraZODone] 200 mg PO HS PRN 10/30/17 12/18/17 Aripiprazole [Abilify] 15 mg PO DAILY 12/18/17 12/18/17 Previous Rx's Medication Instructions Recorded Estradiol [Estrace] 1 mg PO DAILY #30 tablet 08/05/16 Gabapentin [Neurontin] 100 mg PO TID #90 capsule 08/05/16 Propranolol [Inderal] 10 mg PO TID #90 tablet 08/05/16 Omeprazole [PriLOSEC] 40 mg PO BID #60 cap 10/31/17 Ondansetron ODT [Zofran ODT] 4 mg SL Q6HR 4 Days #16 tab.rapdis 10/31/17 Sucralfate [Carafate] 1 gm PO BID #60 oral.susp 10/31/17 Lidocaine Patch [Lidoderm 5% patch] 1 each TP DAILY PRN #20 adh..patch 11/30/17 Clindamycin HCl 450 mg PO TID #30 capsule 05/19/18 Lidocaine Patch [Lidoderm 5% patch] 1 each TP DAILY #12 adh..patch 05/19/18 Allergies Allergy/AdvReac Type Severity Reaction Status Date / Time acetaminophen [From Tylenol] Allergy See Verified 11/30/17 14:36 Comments morphine Allergy Hypotension Verified 11/30/17 14:36 Penicillins Allergy See Verified 11/30/17 14:36 Comments Review of Systems: In addition to that documented in the HPI above, the additional ROS was obtained: Constitutional:Reports feelings of extreme heat Eyes: Denies vision changes ENMT: Denies sore throat CV: Denies chest pain Resp: Denies SOB GI: Denies vomiting or diarrhea Reports: nausea : Denies painful urination MSK: Denies recent trauma Reports: muscle soreness diffusely Skin: Denies new rashes Neuro: Denies new numbness or weakness Reports: diffuse tingling Past Medical History - Past Medical History Attestation: Yes The following information was validated with the patient. Medical history: Reports: GERD, renal disease, other Surgical history: Reports: herniorrhaphy, hysterectomy, other Psychiatric history: Reports: anxiety, bipolar, depression, PTSD, previous psychiatric hospitalization - Social History Smoking Status: Current every day smoker Smokeless Tobacco Status: No Alcohol use: Reports: none Drug use: Reports: cocaine, other Physical Exam General: A&O x 3. No acute distress. Well developed, well nourished. Head: atraumatic, normocephalic. ENT: No conjunctival injection, no scleral icterus. PERRLA. EOMI. Oropharynx non- erythematous. mucous membranes moist. Neuro: No focal deficits, no speech deficit, no facial droop, mentating well. BUE/BLE Str 5/5. Pulm: Lungs CTAB A/P. No wheezes, rales, ronchi. Cardio: RRR no m/r/g. Chest not tender to palpation. Abd: Soft, non-distended. Normoactive bowel sounds. Non-tender to palpation. No guarding. Non rigid. Extremities: Radial pulses 2+ vania, dorsalis pedis/posterior tibialis 2+ vania. No LE edema. No cyanosis, clubbing. Skin: warm, dry, intact. No rashes. Does not feel hot to the touch. Psych: Appropriate mood and affect. Answers questions appropriately. Cooperative with exam. - General Limitations: no limitations General appearance: alert, in no apparent distress Course Vital Signs Temperature 98.6 F 08/18/18 03:47 Pulse Rate 102 08/18/18 03:47 Respiratory Rate 18 08/18/18 03:47 Blood Pressure 131/86 08/18/18 03:47 O2 Sat by Pulse Oximetry 96 08/18/18 03:47 Temperature 98.6 F 08/18/18 03:47 Pulse Rate 80 08/18/18 06:38 Respiratory Rate 16 08/18/18 06:38 Blood Pressure 109/82 08/18/18 06:38 O2 Sat by Pulse Oximetry 98 08/18/18 06:38 Oxygen Delivery Oxygen Delivery Room Air Medical Decision Making - [facility] Narrative Medical decision making narrative: Patient's BMP showed an elevated creatinine at 1.24 which is above her baseline which appears to be around 1 for the last year or so. Additionally CK was elevated over 400. Patient's lab work findings were discussed with her at bedside, and she states that with the background of chronic kidney disease stage III she was very concerned about the possibility of worsening kidney function. She states she would feel more comfortable if this was treated in the hospital. Patient will be hydrated while in the department. Patient was admitted to the hospitalist Dr. Gutierrez who agreed to accept patient to his service. Patient was given an opportunity to ask questions at bedside and all of their concerns were addressed. Patient verbalized understanding and agreement with plan of care. Pt remained stable while in the department. - Medical Records Medical records reviewed: Yes I reviewed the patient's medical records. - Lab Data Lab results reviewed: Yes I reviewed the patient's lab results. Result diagrams: 08/18/18 05:25 08/18/18 05:25 Lab Results 08/18/18 08/18/18 08/18/18 Range/Units 05:25 05:25 05:25 WBC 12.2 H (4.3-11.1) K/mcL RBC 4.59 (3.82-4.97) M/mcL Hgb 13.8 (11.5-15.4) g/dL Hct 42.3 (35.3-44.9) % MCV 92.2 (83.0-100.0) fL MCH 30.1 (28.0-33.3) pg MCHC 32.6 (31.6-35.5) g/dL RDW 13.9 (11.5-14.5) % Plt Count 281 (140-400) K/mcL MPV 10.3 (9.4-12.4) fL Immature Gran % 0.5 (0-4) % Seg Neutrophils % 70.2 % Lymphocytes % 20.1 % Monocytes % 8.7 % Eosinophils % 0.2 % Basophils % 0.3 % Neutrophils # 8.6 (1.6-8.9) K/mcL Lymphocytes # 2.5 (0.6-4.6) K/mcL Monocytes # 1.1 (0.0-1.3) K/mcL Eosinophils # 0.0 (0.0-0.6) K/mcL Basophils # 0.0 (0.0-0.2) K/mcL Sodium 143 (136-145) mEq/L Potassium 3.9 (3.5-5.1) mEq/L Chloride 109 H (98-107) mEq/L Carbon Dioxide 21 L (23-29) mEq/L BUN 21 H (6-20) mg/dL Creatinine 1.24 H (0.60-1.20) mg/dL Est GFR ( Amer) 54 L (> 60) Est GFR (Non-Af Amer) 45 L (> 60) BUN/Creatinine Ratio 17 (6-26) Glucose 90 (70-105) mg/dL Calculated Osmolality 299 (280-300) Calcium 9.4 (8.6-10.3) mg/dL Creatine Kinase 433 H (30-223) Units/L Troponin I < 0.03 (< 0.04) ng/mL - EKG Data EKG #1 EKG attestation: Yes I reviewed and interpreted this EKG. EKG results narrative: Heart rate 79, rhythm sinus, axis left at -45. CO 127, QRS 99, QTC 446. One millimeter of isolated ST segment elevation in lead V2. [address] segment depression in leads 3 and aVF these EKG findings are consistent with previous EKG dated 10/30/2017. Attestation Statement - Attestation Attestation: I, Andrzej Hinojosa DO, examined this patient [id number] and my medical decision-making was reviewed with Dr. Nanda Gaytan Resident Physician. I a gree with the documented findings, disposition and treatment plan as described except to the extent set forth below. I personally supervised and was present for the anaya/critical portions of the procedures completed by the resident documented below. Please see my progress notes for details.
[2018-08-18] MEDS ORDERED: *HR* FentaNYL (PF) 100 MCG/2 ML VIAL IVP ONE (06:38)
[2018-08-18] MEDS: 0.9 % Sodium Chloride 1,000 ML IVC SCH ×3 (07:51→21:23)
[2018-08-18] MEDS ORDERED: Naloxone 0.4 MG/ML INJ IVP PRN ×2 (10:13→10:32)
[2018-08-18] MEDS ORDERED: Ondansetron 4 MG/2 ML VIAL IVP PRN (10:13)
[2018-08-18] MEDS ORDERED: traZODone 50 MG TABLET PO PRN (10:19)
--- NOTE | 2018-08-18 10:31 | Internal Med History&Physical ---
Date of Encounter: 08/18/18 Time of Encounter: 10:31 Internal Medicine - H&P: HPI Chief complaint: generalized weakness History of present illness: 58-year-old female with a past medical history of degenerative disk disease anxiety, bipolar, depression, PTSD, prior suicide attempt, previous psychiatric hospitalization who presented with generalized malaise associated with nausea,vomiting and abdominal discomfort. the patient stated that she has no condition at her apartment and last night she felt that her body is very hot, she took a shower to cool down was no involvement and she was afraid that she might have a hates stroke and she decided to seek medical attention, the patient was evaluated by the ER staff and had laboratory data revealed a mildly elevated CPK as well as elevated BUN/creatinine the patient was admitted for further evaluation and management of acute kidney injury. Past Med Surg Social Fam HX - Past Medical History Medical history: arthritis, renal disease, other Additional medical history: degenerative disk disease Psychiatric history: anxiety, bipolar, depression, PTSD, prior suicide attempt, previous psychiatric hospitalization - Past Surgical History Surgical History: herniorrhaphy Additional surgical history: bladder sx - Social History Smoking Status: Current every day smoker Smokeless Tobacco Status: No Alcohol use: none Drug use: cocaine, other - Family History Mother Adopted: No Family Member Ethnicity: Non- Twin of Family Member: Yes Living Status: Hx Family Endocrine Disorder: Yes (DM) Internal Medicine - H&P: Meds Multivitamin [Flintstones] 1 tab PO DAILY 12/05/14 [History] Estradiol [Estrace] 1 mg PO DAILY #30 tablet 08/05/16 [Rx] Polyethylene Glycol 3350 17 gm PO DAILY PRN 09/23/16 [History] HydrOXYzine Pamoate [Vistaril] 50 mg PO TID PRN 01/16/17 [History] traZODone [TraZODone] 200 mg PO HS PRN 10/30/17 [History] Lidocaine Patch [Lidoderm 5% patch] 1 each TP DAILY #12 adh..patch 05/19/18 [Rx] Divalproex (12 HR) [Depakote (12 HR)] 1,000 mg PO HS 08/18/18 [History] Divalproex (12 HR) [Depakote (12 HR)] 500 mg PO QAM 08/18/18 [History] Gabapentin [Neurontin] 300 mg PO TID 08/18/18 [History] Lurasidone [Latuda] 20 mg PO DAILY 08/18/18 [History] Tizanidine HCl [Zanaflex] 4 mg PO TID PRN 08/18/18 [History] Allergy/AdvReac Type Severity Reaction Status Date / Time acetaminophen [From Tylenol] Allergy See Verified 11/30/17 14:36 Comments morphine Allergy Hypotension Verified 11/30/17 14:36 Penicillins Allergy See Verified 11/30/17 14:36 Comments All Systems PM: A 10-system review of systems was performed and is negative for pertinent findings except as documented above in the HPI. - Constitutional Vitals: Temp Pulse Resp BP Pulse Ox 97.8 F 65 16 138/91 97 08/18/18 08:37 08/18/18 08:37 08/18/18 08:37 08/18/18 08:37 08/18/18 09:59 General appearance: Present: A&O X 3 - Head Head exam: Present: atraumatic, normocephalic - Neck Neck exam general surgery: Present: supple, trachea midline. Absent: lymphadenopathy - Respiratory Respiratory exam: Present: CTAB. Absent: accessory muscle use, rales, rhonchi, wheezes - Cardiovascular Cardiovascular exam: Present: RRR, +S1, +S2. Absent: diastolic murmur, gallop, rubs, systolic murmur - Extremities Exam Extremities exam: Present: warm, radial pulses palpable and symmetrical. Absent: calf tenderness, cyanotic, pedal edema Internal Med - H&P Results - Labs CBC & Chem 7: 08/19/18 04:37 08/19/18 04:37 Labs: Short CBC 08/18/18 Range/Units 05:25 WBC 12.2 H (4.3-11.1) K/mcL Hgb 13.8 (11.5-15.4) g/dL Hct 42.3 (35.3-44.9) % Plt Count 281 (140-400) K/mcL Neutrophils # 8.6 (1.6-8.9) K/mcL BMP 08/18/18 05:25 Sodium 143 Potassium 3.9 Chloride 109 H Carbon Dioxide 21 L BUN 21 H Creatinine 1.24 H Glucose 90 Calcium 9.4 Cardiac Enzymes 08/18/18 Range/Units 05:25 Troponin I < 0.03 (< 0.04) ng/mL - Assessment and Plan (1) Acute kidney injury Current Visit: Yes Status: Acute Assessment and plan: Most likely secondary to bleeding and its etiology due to decreased kidney perfusion in the setting of volume depletion, CPK is mildly elevated and usually cannot be a contributing factor in acute kidney injury at such lo at such low level, we'll continue IV hydration with isotonic saline,strict I&O's, renal dosing of medication as per current eGFR. (2) Elevated CPK Current Visit: Yes Status: Acute Assessment and plan: CPK is mildly elevated and usually cannot be a contributing factor in acute kidney injury at such at such low level, we will trend CPK level. (3) Chronic back pain Current Visit: No Status: Acute Assessment and plan: the patient has history of chronic back pain, she reports allergy to morphine and acetaminophen however she does report allergy to Dilaudid, I spoke with the pharmacy and they contacted her primary care physician and reported that there was no confirmation that patient have allergy to both acetaminophen and morphine also inpatient pharmacy reviewed prior hospitalization and patient received Percocet in the past. pain management team will be consulted for further evaluation and management. Qualifiers: Back pain location: low back pain Back pain laterality: unspecified Sciatica presence: unspecified whether sciatica present Qualified Code(s): M54.5 - Low back pain; G89.29 - Other chronic pain (4) History of Bakari fundoplication Current Visit: No Status: Acute (5) Major depression, recurrent, chronic Current Visit: No Status: Acute (6) Suicide attempt by multiple drug overdose Current Visit: No Status: Acute Qualifiers: Encounter type: subsequent encounter Qualified Code(s): T50.902D - Poisoning by unspecified drugs, medicaments and biological substances, intentional self-harm, subsequent encounter (7) Bipolar 1 disorder Current Visit: No Status: Chronic (8) Depression with suicidal ideation Current Visit: No Status: Chronic (9) PTSD (post-traumatic stress disorder) Current Visit: No Status: Chronic - Time Spent With Patient Total time spent is greater than 50% in coordination of care (as documented) at patient's floor/unit and/or counseling patient:
[2018-08-18] MEDS: traMADol 50 MG TABLET PO PRN ×2 (11:17→19:05)
[2018-08-18] MEDS ORDERED: hydrOXYzine pamoate 25 MG CAPSULE PO PRN (11:19)
--- NOTE | 2018-08-18 14:09 | Electrocardiograph Report ---
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
[2018-08-18] MEDS: Gabapentin 300 MG CAPSULE PO SCH ×2 (14:12→21:23)
[2018-08-18 14:30] LABS: Bilirubin,Urine Negative (Negative); Blood,Urine Negative (Negative); Clarity,Urine Clear (Clear); Color,Urine Yellow (Yellow); Glucose,Urine (UA) Normal (Normal); Ketones,Urine Negative (Negative); Leukocyte Esterase,Urine Negative (Negative); Nitrite,Urine Negative (Negative); PH,Urine 5.5 pH Units (5.0-8.0); Protein,Urine Negative (Neg-Trace); Specific Gravity,Urine > 1.030 (1.010-1.025); Urobilinogen,Urine Normal (Normal)
[2018-08-18] MEDS ORDERED: hydrOXYzine pamoate 25 MG CAPSULE PO SCH (15:00)
[2018-08-18] MEDS ORDERED: Gabapentin 100 MG CAPSULE PO SCH (15:00)
[2018-08-18] MEDS ORDERED: tiZANidine 4 MG TABLET PO SCH (15:00)
[2018-08-18] MEDS: tiZANidine 4 MG TABLET PO PRN ×2 (15:53→21:28)
[2018-08-18] MEDS ORDERED: Divalproex (12 HR) 250 MG TABLET PO SCH (21:00)
[2018-08-18] MEDS ORDERED: Divalproex (12 HR) 500 MG TABLET PO SCH (21:00)
[2018-08-19] MEDS: 0.9 % Sodium Chloride 1,000 ML IVC SCH (04:25)
[2018-08-19 04:53] LABS: Basophils # 0.1 K/mcL (0.0-0.2); Basophils % 0.6 %; Eosinophils # 0.2 K/mcL (0.0-0.6); Eosinophils % 2.3 %; Hematocrit 39.5 % (35.3-44.9); Hemoglobin 12.4 g/dL (11.5-15.4); Immature Granulocytes % 0.1 % (0-4); Lymphocytes # 4.2 K/mcL (0.6-4.6); Lymphocytes % 47.8 %; Mean Corpuscular HGB Conc 31.4 g/dL (31.6-35.5); Mean Corpuscular Volume 95.6 fL (83.0-100.0); Mean Platelet Volume 10.3 fL (9.4-12.4); Monocytes # 0.7 K/mcL (0.0-1.3); Monocytes % 7.7 %; Neutrophils # 3.6 K/mcL (1.6-8.9); Platelet Count 193 K/mcL (140-400); Red Blood Count 4.13 M/mcL (3.82-4.97); Red Cell Distribution Width 13.7 % (11.5-14.5); Segmented Neutrophils % 41.5 %; White Blood Count 8.7 K/mcL (4.3-11.1)
[2018-08-19 05:00] LABS: INR 0.9; Prothrombin Time 9.9 Seconds (9.4-12.1)
[2018-08-19 05:02] LABS: Activated Partial Thrombo Time 29.5 Seconds (26.0-36.0)
[2018-08-19 05:20] LABS: Alanine Aminotransferase 13 Units/L (7-52); Albumin 3.3 g/dL (3.5-5.7); Albumin/Globulin Ratio 1.5 (1.1-2.2); Alkaline Phosphatase 54 Units/L (34-104); Aspartate Amino Transferase 18 Units/L (13-39); BUN/Creatinine Ratio 16 (6-26); Bilirubin,Total 0.3 mg/dL (0.3-1.0); Blood Urea Nitrogen 15 mg/dL (6-20); Calcium 8.2 mg/dL (8.6-10.3); Carbon Dioxide 18 mEq/L (23-29); Chloride 115 mEq/L (98-107); Chol/HDL Ratio 2.1 (0-4.9); Cholesterol 128 mg/dL (< 200); Globulin 2.2 g/dL (2.4-3.5); Glucose 83 mg/dL (70-105); HDL Cholesterol 62 mg/dL (40-59); LDL Cholesterol,Calculated 54 mg/dL (0-99); Osmolality,Calculated 292 (280-300); Phosphorous 3.6 mg/dL (2.7-4.5); Potassium 4.5 mEq/L (3.5-5.1); Sodium 141 mEq/L (136-145); Total Protein 5.5 g/dL (6.4-8.9); Triglycerides 60 mg/dL (< 150); eGFR For African Americans > 60 (> 60); eGFR For Non-African Americans > 60 (> 60)
[2018-08-19 07:29] VITALS: BP 107/62
[2018-08-19] MEDS: Gabapentin 300 MG CAPSULE PO SCH (07:50)
[2018-08-19] MEDS ORDERED: Multivit/Ca/Min/Fe/FA 1 TAB TABLET PO SCH (09:00)
[2018-08-19] MEDS ORDERED: Lurasidone 20 MG TABLET PO SCH (09:00)
[2018-08-19] MEDS ORDERED: Divalproex (12 HR) 500 MG TABLET PO SCH (09:00)
--- NOTE | 2018-08-19 10:28 | Discharge Summary ---
Date of Encounter: 08/19/18 Time of Encounter: 10:26 - Discharge Diagnosis (1) Heat exposure Priority: Primary Status: Acute Qualifiers: Qualified Code(s): T67.9XXD - Effect of heat and light, unspecified, subsequent encounter (2) Acute kidney injury Priority: Secondary Status: Acute (3) Elevated CPK Priority: Secondary Status: Acute Hospital course: Ms. Garcia is a 58 year old female with history of heat stroke 17 years ago and multiple psychiatric check illness sees who presented with vague complaints and noted to heat exposure in her apartment to 100 degrees Fahrenheit for several hours patient says that she does not have air conditioning in her apartment only a fan and this was not sufficient to keep her cool on the warm day yesterday she started feeling generalized malaise and nausea. She tried using ice packs to treat her symptoms but symptoms progressed and her significant other called EMS to bring her to the emergency room temperature in the emergency room is normal although blood pressure was mildly low CK was mildly elevated and patient was noted to have an acute kidney injury she improved with IV hydration and supportive care discharged home and told to use a fan to stay cool as well as ice packs and cold showers she will follow-up with her PCP. Discharge discussed with: patient, nurse - Time Spent with Patient Total time spent providing and/or coordinating discharge services: 35 minutes Time spent: D/C greater than 8 hours after Admission - Discharge Medications Prescriptions: New hydrOXYzine pamoate [Vistaril] 50 mg PO TID PRN capsule PRN Reason: Anxiety Continued Estradiol [Estrace] 1 mg PO DAILY #30 tablet HydrOXYzine Pamoate [Vistaril] 50 mg PO TID PRN PRN Reason: Anxiety Tizanidine HCl [Zanaflex] 4 mg PO TID PRN PRN Reason: Muscle Spasm Lurasidone [Latuda] 20 mg PO DAILY Gabapentin [Neurontin] 300 mg PO TID Divalproex (12 HR) [Depakote (12 HR)] 500 mg PO QAM Divalproex (12 HR) [Depakote (12 HR)] 1,000 mg PO HS Albuterol Sulfate [Ventolin Hfa] 2 puff IH Q4H PRN PRN Reason: Shortness Of Breath Diclofenac Sodium 1 gm TP QID PRN PRN Reason: Pain Lidocaine Patch [Lidoderm 5% patch] 1 patch TP DAILY PRN PRN Reason: Pain Multivitamin [One Daily Essential] 1 tab PO DAILY Omeprazole [PriLOSEC] 40 mg PO DAILY PRN PRN Reason: GERD Polyethylene Glycol 3350 [MiraLAX] 17 gm PO DAILY Trazodone HCl 100 - 200 mg PO HS PRN PRN Reason: Sleep Vitamin E (Dl,Tocopheryl Acet) [Vitamin E] 100 unit PO DAILY Sucralfate [Carafate] 1 gm PO TID PRN PRN Reason: GERD Home Medications: Estradiol [Estrace] 1 mg PO DAILY #30 tablet 08/05/16 [Rx] HydrOXYzine Pamoate [Vistaril] 50 mg PO TID PRN 01/16/17 [History] Divalproex (12 HR) [Depakote (12 HR)] 1,000 mg PO HS 08/18/18 [History] Divalproex (12 HR) [Depakote (12 HR)] 500 mg PO QAM 08/18/18 [History] Gabapentin [Neurontin] 300 mg PO TID 08/18/18 [History] Lurasidone [Latuda] 20 mg PO DAILY 08/18/18 [History] Tizanidine HCl [Zanaflex] 4 mg PO TID PRN 08/18/18 [History] Albuterol Sulfate [Ventolin Hfa] 2 puff IH Q4H PRN 08/19/18 [History] Diclofenac Sodium 1 gm TP QID PRN 08/19/18 [History] Lidocaine Patch [Lidoderm 5% patch] 1 patch TP DAILY PRN 08/19/18 [History] Multivitamin [One Daily Essential] 1 tab PO DAILY 08/19/18 [History] Omeprazole [PriLOSEC] 40 mg PO DAILY PRN 08/19/18 [History] Polyethylene Glycol 3350 [MiraLAX] 17 gm PO DAILY 08/19/18 [History] Sucralfate [Carafate] 1 gm PO TID PRN 08/19/18 [History] Trazodone HCl 100 - 200 mg PO HS PRN 08/19/18 [History] Vitamin E (Dl,Tocopheryl Acet) [Vitamin E] 100 unit PO DAILY 08/19/18 [History] hydrOXYzine pamoate [Vistaril] 50 mg PO TID PRN capsule 08/19/18 [Rx] Allergies/Adverse Reactions: Allergy/AdvReac Type Severity Reaction Status Date / Time acetaminophen [From Tylenol] Allergy See Verified 08/19/18 08:52 Comments morphine Allergy Hypotension Verified 08/19/18 08:52 Penicillins Allergy See Verified 08/19/18 08:52 Comments Date of admission: 08/18/18 07:03 Primary care physician: Coleen Ho Consults: 08/19/18 06:17 Consult to Pain Management [CONS] Routine Consulting Provider: [facility] [place] Reason for Consult: The patiet is c/o chronic back pain Time Notified: 06:18 Call Completed: No - Constitutional Vitals: Temp Pulse Resp BP Pulse Ox 98.1 F 54 18 107/62 96 08/19/18 07:28 08/19/18 07:28 08/19/18 07:28 08/19/18 07:28 08/19/18 07:28 General appearance: Present: A&O X 3 Exam: General: Ill-appearing and in no acute distress HEENT: No erythema of posterior pharynx. No exudates. Lymphatics: No mandibular or cervical lymphadenopathy Cardiovascular: RRR. No murmurs. No chest wall tenderness. Lungs: Clear to auscelltation bilaterally. Regular chest rise. Abdomen: Non-tender. No rebound or gaurding. Nl bowel sounds. Extremities: No edema. 2+ pulses radial and pedal pulses Skin: No rahses, abrasions, or contusions. Nl cap refill. Psych: Nl attention. A&Ox3 Neuro: geomorphologist II-XII intact. 5/5 strength. Sensation to light touch and pinprick intact. - Patient Status Disposition: Home, Self-Care Condition: Good Functional capacity at discharge: independent ambulation Overall status at discharge: patient is back to baseline - Discharge Instructions Follow Up With: Coleen oH, NODULIZER [Primary Care Provider] - - Diet and Activity Activity: increase activity as tolerated Diet: regular diet
== END 2018-08-19 11:46 | disposition home or self-care (01) ==
LOC: EMEROOARM 03:33 → 2ANU 03:33 → SUATTDRO 07:03 → 2ANU 08:24
PROVIDERS: ADMIT Family Medicine; ATTEND Internal Medicine

== ENCOUNTER 2018-10-09 15:41 | Observation (INO) ==
[2018-10-09] MEDS ORDERED: Nitroglycerin 0.4 MG TAB.SUBL SL PRN (15:54)
[2018-10-09] MEDS ORDERED: Ondansetron ODT 4 MG TAB.RAPDIS SL ONE (16:00)
[2018-10-09 16:16] LABS: Bilirubin,Urine Negative (Negative); Blood,Urine Negative (Negative); Clarity,Urine Clear (Clear); Color,Urine Yellow (Yellow); Glucose,Urine (UA) Normal (Normal); Ketones,Urine Negative (Negative); Leukocyte Esterase,Urine Negative (Negative); Nitrite,Urine Negative (Negative); PH,Urine 5.5 pH Units (5.0-8.0); Protein,Urine Negative (Neg-Trace); Specific Gravity,Urine 1.026 (1.010-1.025); Urobilinogen,Urine Normal (Normal)
[2018-10-09 16:19] LABS: Basophils # 0.1 K/mcL (0.0-0.2); Basophils % 0.5 %; Eosinophils # 0.2 K/mcL (0.0-0.6); Eosinophils % 1.5 %; Hematocrit 47.8 % (35.3-44.9); Lymphocytes # 4.2 K/mcL (0.6-4.6); Mean Corpuscular HGB Conc 33.5 g/dL (31.6-35.5); Mean Corpuscular Hemoglobin 29.9 pg (28.0-33.3); Mean Corpuscular Volume 89.2 fL (83.0-100.0); Mean Platelet Volume 10.3 fL (9.4-12.4); Monocytes % 7.3 %; Neutrophils # 7.9 K/mcL (1.6-8.9); Platelet Count 257 K/mcL (140-400); Red Blood Count 5.36 M/mcL (3.82-4.97); Red Cell Distribution Width 12.7 % (11.5-14.5); Segmented Neutrophils % 58.7 %; White Blood Count 13.4 K/mcL (4.3-11.1)
[2018-10-09 16:41] LABS: BUN/Creatinine Ratio 18 (6-26); Blood Urea Nitrogen 22 mg/dL (6-20); Calcium 9.6 mg/dL (8.6-10.3); Carbon Dioxide 21 mEq/L (23-29); Chloride 106 mEq/L (98-107); Glucose 104 mg/dL (70-105); Osmolality,Calculated 290 (280-300); Potassium 4.4 mEq/L (3.5-5.1); Sodium 138 mEq/L (136-145); Troponin I < 0.03 ng/mL (< 0.04); eGFR For African Americans 55 (> 60); eGFR For Non-African Americans 45 (> 60)
[2018-10-09] MEDS ORDERED: Sucralfate 1 GM TABLET PO PRN (18:20)
[2018-10-09] MEDS ORDERED: tiZANidine 4 MG TABLET PO PRN (18:20)
[2018-10-09] MEDS ORDERED: hydrOXYzine pamoate 25 MG CAPSULE PO PRN (18:20)
[2018-10-09] MEDS: Divalproex (12 HR) 500 MG TABLET PO SCH (20:44)
[2018-10-09] MEDS: Gabapentin 400 MG CAPSULE PO SCH (20:45)
[2018-10-09] MEDS: *HR* Heparin 5,000 UNIT/ML VIAL SQ SCH (20:45)
[2018-10-09] MEDS ORDERED: 0.9 % Sodium Chloride 1,000 ML IVC SCH (21:30)
[2018-10-10 01:31] LABS: Basophils # 0.1 K/mcL (0.0-0.2); Basophils % 0.4 %; Eosinophils # 0.2 K/mcL (0.0-0.6); Eosinophils % 1.7 %; Hemoglobin 14.1 g/dL (11.5-15.4); Immature Granulocytes % 1.2 % (0-4); Lymphocytes # 4.2 K/mcL (0.6-4.6); Lymphocytes % 36.5 %; Mean Corpuscular HGB Conc 32.8 g/dL (31.6-35.5); Mean Corpuscular Hemoglobin 29.8 pg (28.0-33.3); Mean Corpuscular Volume 90.9 fL (83.0-100.0); Mean Platelet Volume 10.4 fL (9.4-12.4); Monocytes # 0.9 K/mcL (0.0-1.3); Monocytes % 8.2 %; Platelet Count 234 K/mcL (140-400); Red Blood Count 4.73 M/mcL (3.82-4.97); Red Cell Distribution Width 12.7 % (11.5-14.5); White Blood Count 11.5 K/mcL (4.3-11.1)
[2018-10-10 01:53] LABS: BUN/Creatinine Ratio 24 (6-26); Blood Urea Nitrogen 26 mg/dL (6-20); Calcium 8.9 mg/dL (8.6-10.3); Carbon Dioxide 22 mEq/L (23-29); Chloride 108 mEq/L (98-107); Glucose 106 mg/dL (70-105); Osmolality,Calculated 287 (280-300); Sodium 136 mEq/L (136-145); eGFR For African Americans > 60 (> 60); eGFR For Non-African Americans 53 (> 60)
[2018-10-10] MEDS: *HR* Heparin 5,000 UNIT/ML VIAL SQ SCH ×3 (05:16→21:19)
[2018-10-10] MEDS ORDERED: Regadenoson 0.4 MG/5 ML SYRINGE IVP ONE (06:55)
[2018-10-10] MEDS: Gabapentin 400 MG CAPSULE PO SCH ×3 (10:21→21:17)
[2018-10-10] MEDS: Multivit/Ca/Min/Fe/FA 1 TAB TABLET PO SCH (10:21)
[2018-10-10] MEDS: Divalproex (12 HR) 500 MG TABLET PO SCH ×2 (10:22→21:17)
[2018-10-10] MEDS: Lurasidone 20 MG TABLET PO SCH (10:22)
[2018-10-11] MEDS: *HR* Heparin 5,000 UNIT/ML VIAL SQ SCH (06:26)
[2018-10-11] MEDS: Gabapentin 400 MG CAPSULE PO SCH (09:09)
[2018-10-11] MEDS: Divalproex (12 HR) 500 MG TABLET PO SCH (09:09)
[2018-10-11] MEDS: Lurasidone 20 MG TABLET PO SCH (09:09)
[2018-10-11] MEDS: Multivit/Ca/Min/Fe/FA 1 TAB TABLET PO SCH (09:09)
[2018-10-11 11:24] VITALS: BP 110/78
== END 2018-10-11 12:00 | disposition home or self-care (01) ==
LOC: EMEROOARM 15:41 → 3BNU 15:41 → SUATTDRO 17:43 → 3BNU 18:25
PROVIDERS: ADMIT Internal Medicine Nephrology; ATTEND Internal Medicine